=== PATIENT | female | born 1970 | race African-American/Black ===

== ENCOUNTER 2016-09-04 11:07 | Emergency (ER) | payer MEDICAID ==
[2016-09-04] MEDS ORDERED: LIDOCAINE 1% INJ-PF (10 MG/ML) 30 ML SDV INJ ONE (11:26)
[2016-09-04] MEDS ORDERED: DIPH/PERTUSS(ACELL)/TETANUS VAC/PF 0.5 ML SYR (>=10YO) IM ONE (11:27)
--- NOTE | 2016-09-04 11:27 | ER Document Report ---
ED Medical Screen (RME) - General Mode of Arrival: Ambulatory Information source: Patient TRAVEL OUTSIDE OF THE [place] IN LAST 30 DAYS: No - HPI Patient complains to provider of: Laceration to the left 3rd digit Onset: Just prior to arrival - 1045 Associated Symptoms: Other - see notes above - General Chief Complaint: Laceration Stated Complaint: LACERATION TO LEFT MIDDLE FINGER Notes: 46 year old female with history of hypertension and diabetes presents to the ED complaining of a laceration to the left 3rd digit that occurred just prior to arrival secondary to a glass breaking while doing dishes. Patient states that she has limited sensation to the tip of the left third digit. Patient denies being on blood thinners. (ROMÁN PARRA) - Related Data Allergies/Adverse Reactions: Iodinated Contrast Media - Oral and Allergy (Verified 09/04/16 11:11) Penicillins Allergy (Verified 09/04/16 11:11) tramadol Allergy (Verified 09/04/16 11:11) Past Medical History - General Information source: Patient - Past Medical History Cardiac Medical History: Reports: Hx Hypercholesterolemia, Hx Hypertension Endocrine Medical History: Reports: Hx Diabetes Mellitus Type 2 Renal/ Medical History: Denies: Hx Peritoneal Dialysis Psychiatric Medical History: Reports: Hx Depression Past Surgical History: Denies: Hx Pacemaker - Immunizations Hx Diphtheria, Pertussis, Tetanus Vaccination: Yes Review of Systems - Review of Systems Constitutional: No symptoms reported EENT: No symptoms reported Cardiovascular: No symptoms reported Respiratory: No symptoms reported Gastrointestinal: No symptoms reported Genitourinary: No symptoms reported Female Genitourinary: No symptoms reported Musculoskeletal: See HPI, Other - laceration to the left third digit Skin: No symptoms reported Hematologic/Lymphatic: No symptoms reported Neurological/Psychological: See HPI, Sensory change - tip of the left third digit -: Yes All other systems reviewed and negative Physical Exam - General General appearance: Alert In distress: None - Respiratory Respiratory status: No respiratory distress - Extremities General upper extremity: No: Normal inspection - see hand exam below Hand: Laceration - Left middle third digit. Bleeding is controlled.. No: Normal Course - Re-evaluation Re-evalutation: 09/04/16 13:24 I personally performed the services described in the documentation, reviewed and edited the documentation which was dictated to the scribe in my presence, and it accurately records my words and actions. (MANNY DAWSON) - Vital Signs Vital signs: Temp Pulse Resp BP Pulse Ox 98.5 F 91 16 138/81 H 98 09/04/16 12:55 09/04/16 12:55 09/04/16 12:55 09/04/16 12:55 09/04/16 12:55 Doctor's Discharge - Discharge Clinical Impression: Laceration of right middle finger w/o foreign body w/o damage to nail Condition: Stable Disposition: HOME, SELF-CARE Instructions: Laceration Care ([facility]) Additional Instructions: Keep wound clean and dry. Clean wound twice a day with soap and water. Follow up in 10-12 days for suture removal. Follow-up sooner for increased pain, fever , redness, drainage, any further concerns. Your blood pressure was elevated during today's visit. Have this rechecked with your doctor. The medication you were prescribed today may cause drowsiness. Do not drive or operate heavy machinery while taking this medication. Prescriptions: Hydrocodone/Acetaminophen [[place] 5-325 mg Tablet] 1 tab PO Q4 PRN #12 tablet PRN Reason: Forms: Elevated Blood Pressure Referrals: JOSEPH ROA FNP [Primary Care Provider] - Follow up as needed Scribe Documentation - Scribe Written by Omid:: Omid Stanford, 09/04/2016 1137 acting as scribe for :: Elaine
--- NOTE | 2016-09-04 12:30 | ER Document Report ---
ED Wound - General Mode of Arrival: Ambulatory Information source: Patient TRAVEL OUTSIDE OF THE [place] IN LAST 30 DAYS: No - HPI Patient complains to provider of: Laceration Occurred: Just prior to arrival Onset/Duration: Sudden Quality of pain: Sharp Severity: Moderate Context: Injury Skin Color: Normal Capillary refill: < 3 seconds Sensations intact: Yes <HANS FUENTES - Last Filed: 09/04/16 12:24> <MANNY DAWSON - Last Filed: 09/04/16 13:24> - General Chief Complaint: Laceration Stated Complaint: LACERATION TO LEFT MIDDLE FINGER - HPI Notes: Patient arrives with complaints of laceration to the right middle finger just below the DIP. Patient states that she was washing dishes and there was a broken glass in the oven operator and she was cut by the glass. She is on any blood thinners. Bleeding is controlled with pressure. She denies any other injuries. Tetanus is being updated today. She denies any numbness, tingling, weakness. No nausea vomiting diarrhea. She denies any other complaints at this moment. She has no other complaints of injury. Pain is worse when she moves her finger better with rest. (HANS FUENTES) - Related Data Allergies/Adverse Reactions: Iodinated Contrast Media - Oral and Allergy (Verified 09/04/16 11:11) Penicillins Allergy (Verified 09/04/16 11:11) tramadol Allergy (Verified 09/04/16 11:11) Past Medical History - General Information source: Patient - Social History Smoking Status: Unknown if Ever Smoked Family History: CAD, DM, Hypertension Patient has suicidal ideation: No Patient has homicidal ideation: No - Past Medical History Cardiac Medical History: Reports: Hx Hypercholesterolemia, Hx Hypertension Endocrine Medical History: Reports: Hx Diabetes Mellitus Type 2 Renal/ Medical History: Denies: Hx Peritoneal Dialysis Psychiatric Medical History: Reports: Hx Depression Past Surgical History: Denies: Hx Pacemaker - Immunizations Hx Diphtheria, Pertussis, Tetanus Vaccination: Yes <HANS FUENTES - Last Filed: 09/04/16 12:24> Review of Systems - Review of Systems -: Yes All other systems reviewed and negative <HANS FUENTES - Last Filed: 09/04/16 12:24> Physical Exam - General General appearance: Appears well, Alert - HEENT Head: Normocephalic Eyes: Normal Ears: Normal Mouth/Lips: Normal Mucous membranes: Normal - Respiratory Respiratory status: No respiratory distress Breath sounds: Normal - Cardiovascular Rhythm: Regular Heart sounds: Normal auscultation Murmur: No Normal capillary refill: Yes - Neurological Neuro grossly intact: Yes Cognition: Normal Orientation: AAOx4 Kvng Coma Scale Eye Opening: Spontaneous Kvng Coma Scale Verbal: Oriented Kvng Coma Scale Motor: Obeys Commands [place] Coma Scale Total: 15 Speech: Normal Motor strength normal: LUE, RUE, LLE, RLE Sensory: Normal - Psychological Associated symptoms: Normal affect, Normal mood - Skin Skin Temperature: Warm Skin Moisture: Dry Skin Color: Normal <HANS FUENTES - Last Filed: 09/04/16 12:24> <MANNY DAWSON - Last Filed: 09/04/16 13:24> - Vital signs Vitals: Temp Pulse Resp BP Pulse Ox 98.8 F 97 20 141/103 H 97 09/04/16 11:15 09/04/16 11:15 09/04/16 11:15 09/04/16 11:15 09/04/16 11:15 - Extremities Notes: Patient is noted to have a 3 severe laceration to the right middle finger middle phalanx. Patient is noted to have venous oozing, with no arterial injury identified. There is no evidence of foreign body. There is no evidence of flexor tendon laceration. Patient has full flexion and extension of the entire finger including the distal phalanx. Bleeding is controlled with pressure. She has normal cap refill and sensation distally. Remainder of her muscles, exam is normal. She is normal radial pulses well. (HANS FUENTES) - Skin Notes: 3cm laceration to the right middle finger (HANS FUENTES) Course - Diagnostic Test Radiology reviewed: Image reviewed <HANS FUENTES - Last Filed: 09/04/16 12:24> <MANNY DAWSON - Last Filed: 09/04/16 13:24> - Re-evaluation Re-evalutation: 09/04/16 12:28 Patient is nontoxic. Stable vitals. The patient lacerated her right middle finger on a piece of broken glass in dish water. Patient had 3 similar laceration to the middle phalanx of the right middle finger. Bleeding is controlled with pressure. X-ray shows no obvious foreign body or fracture. Exam shows no foreign body or tendon laceration. The laceration was closed with 8 sutures. The patient tolerated procedure well be discharged home with a prescription for pain medication. Keep wound clean and dry. Follow-up in 10- 12 days for suture removal. Follow-up sooner for increased pain, fever, redness , drainage, fever, any further concerns. The patient is noted to have elevated blood pressure during today's emergency department visit. The patient was informed of this finding. The patient was instructed that this may be related to pre-hypertension and requires further evaluation with a primary care provider. The patient has no hypertensive symptoms at this time. The patient's emergency department workup and current diagnosis were explained to the patient and or family. Follow-up instructions were provided. Medications if prescribed were discussed. Instructions for when to return to the emergency department including specific worrisome symptoms were discussed with the patient and/or family. (HANS FUENTES) - Vital Signs Vital signs: Temp Pulse Resp BP Pulse Ox 98.5 F 91 16 138/81 H 98 09/04/16 12:55 09/04/16 12:55 09/04/16 12:55 09/04/16 12:55 09/04/16 12:55 - Diagnostic Test Radiology results interpreted by me: 09/04/16 12:30 No fracture, no foreign body (HANS FUENTES) Procedures - Laceration/Wound Repair right third finger Wound length (cm): 3 Wound's Depth, Shape: Superficial. No: Nail-avulsed Laceration pre-procedure: Sterile PPE donned, Chloraprep applied, Sterile drapes applied Anesthetic type: 1% Lidocaine Volume Anesthetic (mLs): 2 Wound explored: Clean, No foreign body removed Wound Repaired With: Sutures Suture Size/Type: 5:0, Vicryl Number of Sutures: 8 Layer Closure?: No Post-procedure wound care: Sterile dressing applied Post-procedure NV exam normal: Yes Complications: No <HANS FUENTES - Last Filed: 09/04/16 12:24> Discharge <HANS FUENTES - Last Filed: 09/04/16 12:24> <MANNY DAWSON - Last Filed: 09/04/16 13:24> - Discharge Clinical Impression: Laceration of right middle finger w/o foreign body w/o damage to nail Qualifiers: Encounter type: initial encounter Qualified Code(s): S61.212A - Laceration without foreign body of right middle finger without damage to nail, initial encounter Condition: Stable Disposition: HOME, SELF-CARE Instructions: Laceration Care ([facility]) Additional Instructions: Keep wound clean and dry. Clean wound twice a day with soap and water. Follow up in 10-12 days for suture removal. Follow-up sooner for increased pain, fever , redness, drainage, any further concerns. Your blood pressure was elevated during today's visit. Have this rechecked with your doctor. The medication you were prescribed today may cause drowsiness. Do not drive or operate heavy machinery while taking this medication. Prescriptions: Hydrocodone/Acetaminophen [[place] 5-325 mg Tablet] 1 tab PO Q4 PRN #12 tablet PRN Reason: Forms: Elevated Blood Pressure Referrals: JOSEPH ROA FNP [Primary Care Provider] - Follow up as needed Cosign for MLP Exam - Cosign -: I personally evaluated and examined the patient in conjunction with the MLP and agree with the assessment, treatment plan and disposition. Cosign for MLP: Elizabeth <MANNY DAWSON - Last Filed: 09/04/16 13:24>
[2016-09-04] MEDS ORDERED: HYDROCODONE/ACETAMINOPHEN 5-325 MG TABLET ONE (12:51)
[2016-09-04 13:01] VITALS: BP 138/81
== END 2016-09-04 13:00 | disposition home or self-care (01) ==
LOC: ER 11:07
PROC: 0HQFXZZ Repair Right Hand Skin, External Approach (ICD-10-PCS; principal; 2016-09-04)
DX: S61.212A Laceration without foreign body of right middle finger without damage to nail, initial encounter (principal); W25.XXXA Contact with sharp glass, initial encounter
CPT/HCPCS: 99283; 90471; 73130; 90715; 12002; J3490

== ENCOUNTER 2016-09-27 06:36 | Emergency (ER) | payer SELFPAY ==
[2016-09-27] MEDS ORDERED: LISINOPRIL 10 MG TABLET PO ONE (07:27)
[2016-09-27] MEDS ORDERED: HYDROCHLOROTHIAZIDE 12.5 MG CAPSULE PO ONE (07:27)
[2016-09-27] MEDS ORDERED: ONDANSETRON 4 MG TAB.RAPDIS PO ONE (07:27)
--- NOTE | 2016-09-27 07:29 | ER Document Report ---
ED GI/ - General Chief Complaint: Vaginal Bleeding Stated Complaint: VAGINAL BLEEDING Mode of Arrival: Ambulatory Information source: Patient Notes: Patient presents complaining of pelvic pain and vaginal bleeding that started yesterday. Patient states that her last menstrual cycle 09/15/2016. Patient states she's been having irregular menstrual cycles for several months now. Patient reports nausea but denies any vomiting. Patient denies any urinary symptoms. Patient states that she ran out of her blood pressure medications yesterday. TRAVEL OUTSIDE OF THE [place] IN LAST 30 DAYS: No - HPI Patient complains to provider of: Pelvic pain, Vaginal bleeding. No: Vaginal discharge Onset: Yesterday Timing/Duration: Persistent Quality of pain: Cramping Pain Level: 4 Location: Pelvis Vaginal bleeding (Compared to normal period): Heavier, Bright red Associated symptoms: Nausea. denies: Chest pain, Dysuria, Fever, Lightheaded, Loss of appetite, Urinary hesitancy, Urinary frequency, Urinary retention, Urinary urgency, Vaginal discharge, Vomiting Exacerbated by: Denies Relieved by: Denies Similar symptoms previously: Yes Recently seen / treated by doctor: No - Related Data Allergies/Adverse Reactions: Iodinated Contrast Media - Oral and Allergy (Verified 09/04/16 11:11) Penicillins Allergy (Verified 09/04/16 11:11) tramadol Allergy (Verified 09/04/16 11:11) Past Medical History - General Information source: Patient Last Menstrual Period: 09/15/2016 - Social History Smoking Status: Never Smoker Chew tobacco use (# tins/day): No Frequency of alcohol use: None Drug Abuse: None Occupation: none Lives with: Family Family History: CAD, DM, Hypertension Patient has suicidal ideation: No Patient has homicidal ideation: No - Past Medical History Cardiac Medical History: Reports: Hx Hypercholesterolemia, Hx Hypertension Endocrine Medical History: Reports: Hx Diabetes Mellitus Type 2 Renal/ Medical History: Denies: Hx Peritoneal Dialysis Musculoskeltal Medical History: Reports Other - Chronic back pain Psychiatric Medical History: Reports: Hx Depression Surgical Hx: Negative Past Surgical History: Denies: Hx Pacemaker - Immunizations Hx Diphtheria, Pertussis, Tetanus Vaccination: Yes Review of Systems - Review of Systems Constitutional: No symptoms reported. denies: Fever, Recent illness EENT: No symptoms reported Cardiovascular: No symptoms reported. denies: Lightheaded Respiratory: No symptoms reported. denies: Cough, Short of breath Gastrointestinal: Nausea. denies: Vomiting Genitourinary: No symptoms reported. denies: Dysuria, Flank pain Female Genitourinary: Heavy/abnormal periods, Irregular period, Vaginal bleeding. denies: Musculoskeletal: No symptoms reported. denies: Back pain Skin: No symptoms reported Hematologic/Lymphatic: No symptoms reported Neurological/Psychological: No symptoms reported Physical Exam - Vital signs Vitals: Temp Pulse Resp BP Pulse Ox 98.0 F 88 16 160/104 H 98 09/27/16 06:41 09/27/16 06:41 09/27/16 06:41 09/27/16 06:41 09/27/16 06:41 - General General appearance: Appears well, Alert In distress: None - HEENT Head: Normocephalic, Atraumatic Eyes: Normal Nasal: Normal Mouth/Lips: Normal Pharynx: Normal Neck: Normal, Supple. No: Lymphadenopathy - Respiratory Respiratory status: No respiratory distress Chest status: Nontender Breath sounds: Normal. No: Rales, Rhonchi, Stridor, Wheezing Chest palpation: Normal - Cardiovascular Rhythm: Regular Heart sounds: S1 appreciated, S2 appreciated Murmur: No - Abdominal Inspection: Normal Distension: No distension Bowel sounds: Normal Tenderness: Tender - Lower pelvic Organomegaly: No organomegaly - Genitourinary External exam: Normal Speculum exam: Cervix closed Vaginal bleeding: Mild Bimanuel exam: Normal. No: Cervical motion tender, Adnexal mass, Adnexal tenderness - Back Back: Normal, Nontender. No: CVA tenderness - Extremities General upper extremity: Normal inspection, Normal ROM General lower extremity: Normal inspection, Normal ROM - Neurological Neuro grossly intact: Yes Cognition: Normal [place] Coma Scale Eye Opening: Spontaneous Kvng Coma Scale Verbal: Oriented Kvng Coma Scale Motor: Obeys Commands Kvng Coma Scale Total: 15 - Psychological Associated symptoms: Normal affect, Normal mood - Skin Skin Temperature: Warm Skin Moisture: Dry Skin Color: Normal Course - Re-evaluation Re-evalutation: 09/27/16 09:59 Patient states that she has had penicillin without difficulty after her initial allergy. 09/27/16 Patient encouraged to follow-up with the [facility] [employer] provider for further evaluation of irregular menstrual cycles and heavy periods. Patient also advised to follow- up with her primary doctor to get her blood pressure medications refilled. Discussed worsening signs or symptoms that patient should return immediately for. Patient advised that she should have her partner seek treatment for trichomonas as well - Vital Signs Vital signs: Temp Pulse Resp BP Pulse Ox 98.0 F 20 L 20 149/82 H 97 09/27/16 06:41 09/27/16 11:30 09/27/16 11:30 09/27/16 11:30 09/27/16 11:30 - Laboratory Result Diagrams: 09/27/16 07:50 09/27/16 07:50 Laboratory results interpreted by me: 09/27/16 09/27/16 07:50 07:50 Hgb 10.0 L Hct 30.7 L MCV 79 L MCH 25.9 L RDW 15.7 H Glucose 118 H Labs- Entire Visit 09/27/16 09/27/16 09/27/16 07:50 07:50 07:50 WBC 4.3 RBC 3.87 Hgb 10.0 L Hct 30.7 L MCV 79 L MCH 25.9 L MCHC 32.7 RDW 15.7 H Plt Count 315 Seg Neutrophils % 54.9 Lymphocytes % 33.2 Monocytes % 8.1 Eosinophils % 2.5 Basophils % 1.3 Absolute Neutrophils 2.4 Absolute Lymphocytes 1.4 Absolute Monocytes 0.3 Absolute Eosinophils 0.1 Absolute Basophils 0.1 Sodium 142.4 Potassium 3.9 Chloride 107 Carbon Dioxide 24 Anion Gap 11 BUN 14 Creatinine 0.86 Est GFR ( Amer) > 60 Est GFR (Non-Af Amer) > 60 Glucose 118 H Calcium 9.1 Total Bilirubin 0.4 Direct Bilirubin 0.3 Indirect Bilirubin Not Reportable Neonat Total Bilirubin Not Reportable AST 21 ALT 25 Alkaline Phosphatase 118 Total Protein 7.1 Albumin 4.0 Serum HCG, Qual NEGATIVE Trichomonas (Wet Prep) Vaginal WBC Vaginal RBC Vaginal Yeast 09/27/16 08:45 WBC RBC Hgb Hct MCV MCH MCHC RDW Plt Count Seg Neutrophils % Lymphocytes % Monocytes % Eosinophils % Basophils % Absolute Neutrophils Absolute Lymphocytes Absolute Monocytes Absolute Eosinophils Absolute Basophils Sodium Potassium Chloride Carbon Dioxide Anion Gap BUN Creatinine Est GFR ( Amer) Est GFR (Non-Af Amer) Glucose Calcium Total Bilirubin Direct Bilirubin Indirect Bilirubin Neonat Total Bilirubin AST ALT Alkaline Phosphatase Total Protein Albumin Serum HCG, Qual Trichomonas (Wet Prep) TRICHOMONAS SEEN Vaginal WBC NO WBCS SEEN Vaginal RBC 4+ RBCS SEEN Vaginal Yeast NO YEAST SEEN 09/27/16 13:06 09/27/16 13:07 Discharge - Discharge Clinical Impression: Hx of essential hypertension, Vagina bleeding, Trichomoniasis Condition: Stable Disposition: HOME, SELF-CARE Instructions: High Blood Pressure ([facility]), Vaginal Bleeding ([facility]), Trichomonas Infection ([facility]), Metronidazole ([facility]) Additional Instructions: Return immediately for any new or worsening symptoms Followup with your primary care provider, call tomorrow to make a followup appointment, your primary doctor can refill your blood pressure medications Follow up with a ring making machine operator for further evaluation of heavy irregular menstrual cycles Have your partner seek treatment for trichomonas infection Prescriptions: Amlodipine Besylate 5 mg PO DAILY #15 tab Lisinopril/Hydrochlorothiazide [Lisinopril-Hctz 20-12.5 mg Tab] 1 each PO DAILY #15 tablet Forms: Elevated Blood Pressure Referrals: [facility] [Provider Group] - Follow up in 3-5 days ANGELITO ROA III, MD [Primary Care Provider] - Follow up tomorrow
[2016-09-27 08:00] LABS: ABSOLUTE BASOPHILS # (AUTO) 0.1 10^3/uL (0.0-0.2); ABSOLUTE EOSINOPHILS # (AUTO) 0.1 10^3/uL (0.0-0.6); ABSOLUTE LYMPHOCYTES (AUTO) 1.4 10^3/uL (0.5-4.7); ABSOLUTE MONOCYTES (AUTO) 0.3 10^3/uL (0.1-1.4); ABSOLUTE NEUT (AUTO) 2.4 10^3/uL (1.7-8.2); BASOPHILS % (AUTO) 1.3 % (0-2); EOSINOPHILS % (AUTO) 2.5 % (0-6); HEMATOCRIT 30.7 % (36.0-47.0); HGB HCT DIFFERENCE -0.7; LYMPHOCYTES % (AUTO) 33.2 % (13-45); MEAN CORPUSCULAR HEMOGLOBIN 25.9 pg (27.0-33.4); MEAN CORPUSCULAR HGB CONC 32.7 g/dL (32.0-36.0); MEAN CORPUSCULAR VOLUME 79 fl (80-97); MONOCYTES % (AUTO) 8.1 % (3-13); RED BLOOD COUNT 3.87 10^6/uL (3.72-5.28); RED CELL DISTRIBUTION WIDTH 15.7 % (11.5-14.0); SEGMENTED NEUTROPHILS % (AUTO) 54.9 % (42-78); WHITE BLOOD COUNT 4.3 10^3/uL (4.0-10.5)
[2016-09-27 08:32] LABS: ALANINE AMINOTRANSFERASE 25 U/L (9-52); ALKALINE PHOSPHATASE 118 U/L (38-126); ANION GAP 11 (5-19); ASPARTATE AMINO TRANSFERASE 21 U/L (14-36); BILIRUBIN,DIRECT 0.3 mg/dL (0.0-0.4); BILIRUBIN,TOTAL 0.4 mg/dL (0.2-1.3); BLOOD UREA NITROGEN 14 mg/dL (7-20); CALCIUM 9.1 mg/dL (8.4-10.2); CARBON DIOXIDE 24 mmol/L (22-30); CHLORIDE 107 mmol/L (98-107); CREATININE RESULT 0.86 mg/dL (0.52-1.25); GLUCOSE 118 mg/dL (75-110); POTASSIUM 3.9 mmol/L (3.6-5.0); SODIUM 142.4 mmol/L (137-145); TOTAL PROTEIN 7.1 g/dL (6.3-8.2)
[2016-09-27] MEDS ORDERED: METRONIDAZOLE 500 MG TABLET PO ONE (09:29)
[2016-09-27] MEDS ORDERED: CEFTRIAXONE INJ 250 MG VIAL IM ONE (09:58)
[2016-09-27] MEDS ORDERED: LIDOCAINE 1% INJ-PF (10 MG/ML) 30 ML SDV INJ ONE (09:58)
[2016-09-27] MEDS ORDERED: AZITHROMYCIN 250 MG TABLET PO ONE (09:58)
[2016-09-27 10:27] LABS: CHLAM PCR NOT DETECTED (NOT DETECT)
[2016-09-27 11:31] VITALS: BP 149/82
== END 2016-09-27 11:31 | disposition home or self-care (01) ==
LOC: ER 06:36
DX: A59.9 Trichomoniasis, unspecified (principal); N93.9 Abnormal uterine and vaginal bleeding, unspecified; I10 Essential (primary) hypertension
CPT/HCPCS: 99284; 96372; 36415; 87210; 84703; 85025; 80053; 87491; 87591; S0119; J3490; J0696

== ENCOUNTER 2016-12-31 11:05 | Emergency (ER) | payer SELFPAY ==
[2016-12-31] MEDS ORDERED: NORMAL SALINE 1000 ML 1,000 ML IV PRN (11:19)
[2016-12-31] MEDS ORDERED: ONDANSETRON HCL INJ/PF 4 MG/2 ML SDV IV ONE (11:19)
--- NOTE | 2016-12-31 11:20 | ER Document Report ---
ED Medical Screen (RME) - General Chief Complaint: Blood Pressure Problem Stated Complaint: BLOOD PRESSURE PROBLEMS Time Seen by Provider: 12/31/16 11:18 Notes: Patient states for approximately 3-4 days she has had headaches nausea and vomiting. She states she has been out of her high blood pressure medication for over a week. She states she does not have a refill has been unable to see her doctor. TRAVEL OUTSIDE OF THE [place] IN LAST 30 DAYS: No - Related Data Allergies/Adverse Reactions: Iodinated Contrast- Oral and IV Dye Allergy (Verified 12/31/16 11:09) Penicillins Allergy (Verified 12/31/16 11:09) tramadol Allergy (Verified 12/31/16 11:09) Past Medical History - Social History Chew tobacco use (# tins/day): No Frequency of alcohol use: None Drug Abuse: None - Past Medical History Cardiac Medical History: Reports: Hx Hypercholesterolemia, Hx Hypertension Endocrine Medical History: Reports: Hx Diabetes Mellitus Type 2 Renal/ Medical History: Denies: Hx Peritoneal Dialysis Psychiatric Medical History: Reports: Hx Depression Surgical Hx: Negative Past Surgical History: Denies: Hx Pacemaker - Immunizations Hx Diphtheria, Pertussis, Tetanus Vaccination: Yes Physical Exam - Vital signs Vitals: Temp Pulse Resp BP Pulse Ox 98.4 F 71 14 209/103 H 98 12/31/16 11:09 12/31/16 11:09 12/31/16 11:09 12/31/16 11:09 12/31/16 11:09 Course - Vital Signs Vital signs: Temp Pulse Resp BP Pulse Ox 98.4 F 71 14 209/103 H 98 12/31/16 11:09 12/31/16 11:09 12/31/16 11:09 12/31/16 11:09 12/31/16 11:09
[2016-12-31 12:03] LABS: ABSOLUTE BASOPHILS # (AUTO) 0.1 10^3/uL (0.0-0.2); ABSOLUTE EOSINOPHILS # (AUTO) 0.1 10^3/uL (0.0-0.6); ABSOLUTE LYMPHOCYTES (AUTO) 1.7 10^3/uL (0.5-4.7); ABSOLUTE MONOCYTES (AUTO) 0.4 10^3/uL (0.1-1.4); ABSOLUTE NEUT (AUTO) 1.8 10^3/uL (1.7-8.2); BASOPHILS % (AUTO) 1.4 % (0-2); EOSINOPHILS % (AUTO) 1.9 % (0-6); HEMOGLOBIN 10.1 g/dL (12.0-15.5); HGB HCT DIFFERENCE -0.7; LYMPHOCYTES % (AUTO) 42.9 % (13-45); MEAN CORPUSCULAR HEMOGLOBIN 25.1 pg (27.0-33.4); MEAN CORPUSCULAR HGB CONC 32.8 g/dL (32.0-36.0); MEAN CORPUSCULAR VOLUME 77 fl (80-97); RED BLOOD COUNT 4.04 10^6/uL (3.72-5.28); RED CELL DISTRIBUTION WIDTH 16.3 % (11.5-14.0); SEGMENTED NEUTROPHILS % (AUTO) 43.8 % (42-78)
[2016-12-31 12:11] LABS: APPEARANCE,URINE SLIGHTLY-CLOUDY; BILIRUBIN,URINE NEGATIVE (NEGATIVE); GLUCOSE, URINE NEGATIVE (NEGATIVE); KETONES,URINE NEGATIVE (NEGATIVE); LEUKOCYTE ESTERASE,URINE NEGATIVE (NEGATIVE); NITRITE,URINE NEGATIVE (NEGATIVE); PROTEIN,URINE NEGATIVE (NEGATIVE); URINE SPECIFIC GRAVITY 1.016; UROBILINOGEN,URINE NEGATIVE mg/dL (<2.0)
[2016-12-31 12:20] LABS: ALANINE AMINOTRANSFERASE 25 U/L (9-52); ALKALINE PHOSPHATASE 106 U/L (38-126); ANION GAP 11 (5-19); ASPARTATE AMINO TRANSFERASE 20 U/L (14-36); BILIRUBIN,DIRECT 0.3 mg/dL (0.0-0.4); BILIRUBIN,TOTAL 0.4 mg/dL (0.2-1.3); BLOOD UREA NITROGEN 14 mg/dL (7-20); CALCIUM 9.3 mg/dL (8.4-10.2); CARBON DIOXIDE 25 mmol/L (22-30); CHLORIDE 103 mmol/L (98-107); CREATININE RESULT 0.83 mg/dL (0.52-1.25); GLUCOSE 140 mg/dL (75-110); LIPASE 69.5 U/L (23-300); POTASSIUM 3.7 mmol/L (3.6-5.0); SODIUM 138.7 mmol/L (137-145); TOTAL PROTEIN 7.2 g/dL (6.3-8.2)
[2016-12-31] MEDS ORDERED: AMLODIPINE BESYLATE 10 MG TABLET PO ONE (12:45)
[2016-12-31] MEDS ORDERED: DIAZEPAM 5 MG TABLET PO ONE (12:45)
[2016-12-31] MEDS ORDERED: HYDROCODONE/ACETAMINOPHEN 5-325 MG TABLET PO ONE (12:45)
[2016-12-31] MEDS ORDERED: METOCLOPRAMIDE HCL INJ/PF 10 MG/2 ML SDV IV ONE (12:58)
--- NOTE | 2016-12-31 13:22 | ER Document Report ---
ED General - General Chief Complaint: Blood Pressure Problem Stated Complaint: BLOOD PRESSURE PROBLEMS Time Seen by Provider: 12/31/16 11:18 Mode of Arrival: Ambulatory Information source: Patient Notes: 46-year-old female who is on benzos and narcotics and blood pressure medication presents with complaints of high blood pressure not feeling well. Patient notes she last took her benzos and narcotics and amlodipine 2 days ago. Patient states she has not been able to fill her prescription since. She denies any fevers or chills admits to nausea and vomiting and shakiness patient' s blood pressure was elevated upon arrival TRAVEL OUTSIDE OF THE [place] IN LAST 30 DAYS: No - HPI Onset: Just prior to arrival Onset/Duration: Sudden Quality of pain: Cramping Severity: Mild Pain Level: 1 Associated symptoms: Body/muscle aches, Headache, Nausea, Vomiting Exacerbated by: Denies Relieved by: Denies Similar symptoms previously: Yes Recently seen / treated by doctor: Yes - Related Data Allergies/Adverse Reactions: Iodinated Contrast- Oral and IV Dye Allergy (Verified 12/31/16 11:09) Penicillins Allergy (Verified 12/31/16 11:09) tramadol Allergy (Verified 12/31/16 11:09) Past Medical History - Social History Smoking Status: Never Smoker Cigarette use (# per day): No Chew tobacco use (# tins/day): No Smoking Education Provided: No Frequency of alcohol use: None Drug Abuse: None Family History: CAD, DM, Hypertension - Past Medical History Cardiac Medical History: Reports: Hx Hypercholesterolemia, Hx Hypertension Endocrine Medical History: Reports: Hx Diabetes Mellitus Type 2 Renal/ Medical History: Denies: Hx Peritoneal Dialysis Psychiatric Medical History: Reports: Hx Depression Surgical Hx: Negative Past Surgical History: Denies: Hx Pacemaker - Immunizations Hx Diphtheria, Pertussis, Tetanus Vaccination: Yes Review of Systems - Review of Systems Notes: REVIEW OF SYSTEMS: CONSTITUTIONAL : Denies fever, chills, or sweats. Denies recent illness. EENT: Denies eye, ear, throat, or mouth pain or symptoms. Denies nasal or sinus congestion or discharge. Denies throat, tongue, or mouth swelling or difficulty swallowing. CARDIOVASCULAR: Denies chest pain. Denies palpitations or racing or irregular heart beat. Denies ankle edema. RESPIRATORY: Denies cough, cold, or chest congestion. Denies shortness of breath, difficulty breathing, or wheezing. GASTROINTESTINAL: Admits to nausea vomiting GENITOURINARY: Denies difficulty urinating, painful urination, burning, frequency, blood in urine, or discharge. FEMALE GENITOURINARY: Denies vaginal bleeding, heavy or abnormal periods, irregular periods. Denies vaginal discharge or odor. MUSCULOSKELETAL: Admits to generalized body aches SKIN: Denies rash, lesions or sores. HEMATOLOGIC : Denies easy bruising or bleeding. LYMPHATIC: Denies swollen, enlarged glands. NEUROLOGICAL: Admits to headache PSYCHIATRIC: Denies anxiety or stress. Denies depression, suicidal ideation, or homicidal ideation. ALL OTHER SYSTEMS REVIEWED AND NEGATIVE. PHYSICAL EXAMINATION: GENERAL: Well-appearing, well-nourished and in no acute distress. Hypertensive on arrival HEAD: Atraumatic, normocephalic. EYES: Pupils equal round and reactive to light, extraocular movements intact, conjunctiva are normal. ENT: Nares patent, oropharynx clear without exudates. Moist mucous membranes. NECK: Normal range of motion, supple without lymphadenopathy LUNGS: Breath sounds clear to auscultation bilaterally and equal. No wheezes rales or rhonchi. HEART: Regular rate and rhythm without murmurs ABDOMEN: Soft, nontender, nondistended abdomen. No guarding, no rebound. No masses appreciated. Female : deferred Musculoskeletal: Normal range of motion, no pitting or edema. No cyanosis. NEUROLOGICAL: Cranial nerves grossly intact. Normal speech, normal gait. Normal sensory, motor exams PSYCH: Normal mood, normal affect. SKIN: Warm, Dry, normal turgor, no rashes or lesions noted. Dictation was performed using [employer] voice recognition software Physical Exam - Vital signs Vitals: Temp Pulse Resp BP Pulse Ox 98.4 F 71 14 209/103 H 98 12/31/16 11:09 12/31/16 11:09 12/31/16 11:09 12/31/16 11:09 12/31/16 11:09 Course - Re-evaluation Re-evalutation: 12/31/16 13:21 Patient admits that she has not taken her amlodipine her pain medication or her anxiety medication I will treat her for probable withdrawal symptoms and treat her 12/31/16 16:19 Patient was given pain control benzos and her blood pressure medication and states all her symptoms have since resolved. Patient is requesting narcotics in the emergency department for home, I have explained that she needs to follow with her primary care physician since this is the person who has prescribed her narcotics in the past. I will discharge her with a prescription for her blood pressure medication and is is important. I do not believe the patient will have any life-threatening withdrawal from her benzos since she has been off of it for 2 days and has not seized. Patient has been given very strict return precautions regarding this as well as follow-up After performing a Medical Screening Examination, I estimate there is LOW risk for ACUTE GLAUCOMA, TEMPORAL ARTERITIS, MENINGITIS, INCRANIAL HEMORRHAGE, or ISCHEMIC STROKE thus I consider the discharge disposition reasonable. I have reevaluated this patient multiple times and no significant life threatening changes are noted. The patient and I have discussed the diagnosis and risks, and we agree with discharging home with close follow-up with the understanding that symptoms and presentations can change. We also discussed returning to the Emergency Department immediately if new or worsening symptoms occur. We have discussed the symptoms which are most concerning (e.g., changing or worsening symptoms, new numbness or weakness, vomiting, fever) that necessitate immediate return. - Vital Signs Vital signs: Temp Pulse Resp BP Pulse Ox 98.4 F 71 14 144/71 H 97 12/31/16 11:09 12/31/16 11:09 12/31/16 14:01 12/31/16 14:01 12/31/16 14:01 - Laboratory Result Diagrams: 12/31/16 11:43 12/31/16 11:43 Laboratory results interpreted by me: 12/31/16 12/31/16 12/31/16 11:43 11:43 11:43 Hgb 10.1 L Hct 31.0 L MCV 77 L MCH 25.1 L RDW 16.3 H Glucose 140 H Urine Blood SMALL H - Diagnostic Test Radiology reviewed: Image reviewed, Reports reviewed Discharge - Discharge Clinical Impression: Hypertension Qualifiers: Hypertension type: essential hypertension Qualified Code(s): I10 - Essential ( primary) hypertension Headache Qualifiers: Headache type: unspecified Headache chronicity pattern: acute headache Intractability: not intractable Qualified Code(s): R51 - Headache Nausea & vomiting Qualifiers: Vomiting type: unspecified Vomiting Intractability: non-intractable Qualified Code(s): R11.2 - Nausea with vomiting, unspecified Condition: Stable Disposition: HOME, SELF-CARE Instructions: Antinausea Medication ([facility]), High Blood Pressure, Requiring Treatment ([facility]) Additional Instructions: Follow up with your physician tomorrow for further care or return to the ED IMMEDIATELY if symptoms worsen or new concerns occur. If you cannot afford to follow up with your primary care physician a list of low cost clinics have been provided at the end of your discharge papers as well. Prescriptions: Amlodipine Besylate 5 mg PO DAILY #14 tab
[2016-12-31 15:01] VITALS: BP 144/71
== END 2016-12-31 14:30 | disposition home or self-care (01) ==
LOC: ER 11:05
DX: I10 Essential (primary) hypertension (principal); R51 Headache; R11.2 Nausea with vomiting, unspecified; Z79.899 Other long term (current) drug therapy
CPT/HCPCS: 99283; 96361; 96374; 96375; 36415; 83690; 85025; 81025; 80053; 81001; J2765; J2405; J7030

== ENCOUNTER 2017-01-02 06:22 | Emergency (ER) | payer SELFPAY ==
[2017-01-02] MEDS ORDERED: DIPHENHYDRAMINE HCL 50 MG/ML VIAL IV ONE (06:42)
[2017-01-02] MEDS ORDERED: PROCHLORPERAZINE EDISYLATE INJ 10 MG/2 ML VIAL IV ONE (06:42)
--- NOTE | 2017-01-02 07:01 | ER Document Report ---
ED General - General Chief Complaint: Blood Pressure Problem Stated Complaint: VOMITING/CHEST PAIN Time Seen by Provider: 01/02/17 06:40 Mode of Arrival: Ambulatory Information source: Patient Notes: 46-year-old female history of hypertension who has been on benzos and narcotics presents with complaints of nausea vomiting dizziness has worsened over the past 24 hours. Patient notes she believes she ate a hamburger and has made her nauseated that she has vomited since with diarrhea. Patient denies any fevers or chills. Patient states that she has been having headaches since, states she has not taken her blood pressure medication as was prescribed to her by myself. Patient now notes after vomiting that she is having chest pain that started 3: 00 this morning. Patient also notes she felt dizzy and struck her head on the nightstand yesterday TRAVEL OUTSIDE OF THE [place] IN LAST 30 DAYS: No - HPI Onset: Other - 3 day duration Onset/Duration: Persistent Quality of pain: Sharp Severity: Mild Pain Level: 1 Associated symptoms: Diarrhea - Multiple episodes of diarrhea, Nausea, Vomiting Exacerbated by: Supine - Patient states being supine causes her dizziness and to fall but the patient is sitting up with no difficulty Relieved by: Denies Similar symptoms previously: Yes Recently seen / treated by doctor: Yes - Related Data Allergies/Adverse Reactions: Iodinated Contrast- Oral and IV Dye Allergy (Verified 12/31/16 11:09) Penicillins Allergy (Verified 12/31/16 11:09) tramadol Allergy (Verified 12/31/16 11:09) Past Medical History - Social History Smoking Status: Never Smoker Cigarette use (# per day): No Chew tobacco use (# tins/day): No Smoking Education Provided: No Family History: CAD, DM, Hypertension Patient has suicidal ideation: No Patient has homicidal ideation: No - Past Medical History Cardiac Medical History: Reports: Hx Hypercholesterolemia, Hx Hypertension Endocrine Medical History: Reports: Hx Diabetes Mellitus Type 2 Renal/ Medical History: Denies: Hx Peritoneal Dialysis Psychiatric Medical History: Reports: Hx Depression Past Surgical History: Denies: Hx Pacemaker - Immunizations Hx Diphtheria, Pertussis, Tetanus Vaccination: Yes Review of Systems - Review of Systems Notes: REVIEW OF SYSTEMS: CONSTITUTIONAL : Denies fever, chills, or sweats. Denies recent illness. EENT: Denies eye, ear, throat, or mouth pain or symptoms. Denies nasal or sinus congestion or discharge. Denies throat, tongue, or mouth swelling or difficulty swallowing. CARDIOVASCULAR: Admits to chest pain RESPIRATORY: Denies cough, cold, or chest congestion. Denies shortness of breath, difficulty breathing, or wheezing. GASTROINTESTINAL: Admits nausea vomiting diarrhea GENITOURINARY: Denies difficulty urinating, painful urination, burning, frequency, blood in urine, or discharge. FEMALE GENITOURINARY: Denies vaginal bleeding, heavy or abnormal periods, irregular periods. Denies vaginal discharge or odor. MUSCULOSKELETAL: Admits to body aches SKIN: Denies rash, lesions or sores. HEMATOLOGIC : Denies easy bruising or bleeding. LYMPHATIC: Denies swollen, enlarged glands. NEUROLOGICAL: Admits to dizziness PSYCHIATRIC: Denies anxiety or stress. Denies depression, suicidal ideation, or homicidal ideation. ALL OTHER SYSTEMS REVIEWED AND NEGATIVE. PHYSICAL EXAMINATION: GENERAL: Well-appearing, well-nourished and in no acute distress. Patient's blood pressure is noted to be elevated 174/122 HEAD: Atraumatic, normocephalic. EYES: Pupils equal round and reactive to light, extraocular movements intact, conjunctiva are normal. ENT: Nares patent, oropharynx clear without exudates. Moist mucous membranes. NECK: Normal range of motion, supple without lymphadenopathy LUNGS: Breath sounds clear to auscultation bilaterally and equal. No wheezes rales or rhonchi. HEART: Regular rate and rhythm without murmurs ABDOMEN: Soft, nontender, nondistended abdomen. No guarding, no rebound. No masses appreciated. Female : deferred Musculoskeletal: Normal range of motion, no pitting or edema. No cyanosis. NEUROLOGICAL: Cranial nerves grossly intact. Normal speech, normal gait. Normal sensory, motor exams PSYCH: Normal mood, normal affect. SKIN: Warm, Dry, normal turgor, no rashes or lesions noted. Dictation was performed using [employer] voice recognition software Physical Exam - Vital signs Vitals: Temp Pulse Resp BP Pulse Ox 98.4 F 76 22 H 174/122 H 98 01/02/17 06:26 01/02/17 06:26 01/02/17 06:26 01/02/17 06:26 01/02/17 06:26 Course - Re-evaluation Re-evalutation: 01/02/17 06:59 Physical examination notes no contusions lacerations or signs of head injury, blood pressure is noted to be elevated. Patient will be given Benadryl Compazine for her headache as well as for the nausea. CT of the head has been ordered emergently. EKG notes no acute abnormality. Lab work is pending at this time. Patient's chest pain appears to be secondary to her vomiting and she admits it is burning in her chest when she vomits and that it causes her esophagus to spasm 01/02/17 08:16 CT of head chest x-ray no no acute abnormality, patient's blood pressure 01/02/17 08:25 Patient's blood pressures improved significantly, it is 144/103 at this time patient's resting comfortably 01/02/17 08:55 Patient has been given her Norvasc and will be discharged at this time she notes nausea vomiting has ceased as well as her chest pain which appears to be gastritis nature. Very strict return precautions have been provided given that this is not a complete cardiac evaluation but patient states she wishes to be discharged After performing a Medical Screening Examination, I estimate there is LOW risk for INTRACRANIAL HEMORRHAGE, ISCHEMIC CVA, MALIGNANT DYSRHYTHMIA, ACUTE CORONARY SYNDROME, MENINGITIS, PULMONARY EMBOLISM, or SEPSIS thus I consider the discharge disposition reasonable. I have reevaluated this patient multiple times and no significant life threatening changes are noted. The patient and I have discussed the diagnosis and risks, and we agree with discharging home with close follow-up with the understanding that symptoms and presentations can change. We also discussed returning to the Emergency Department immediately if new or worsening symptoms occur. We have discussed the symptoms which are most concerning (e.g., changing or worsening pain, weakness, vomiting, fever) that necessitate immediate return. - Vital Signs Vital signs: Temp Pulse Resp BP Pulse Ox 98.4 F 76 13 182/102 H 100 01/02/17 06:26 01/02/17 06:26 01/02/17 07:02 01/02/17 07:02 01/02/17 07:02 - Laboratory Result Diagrams: 01/02/17 07:10 01/02/17 07:10 Laboratory results interpreted by me: 01/02/17 01/02/17 07:10 07:10 Hgb 11.2 L Hct 34.2 L MCV 77 L MCH 25.2 L RDW 16.4 H Glucose 111 H - Diagnostic Test Radiology reviewed: Image reviewed, Reports reviewed - EKG Interpretation by Me EKG shows normal: Sinus rhythm, [place], Intervals, QRS Complexes Discharge - Discharge Clinical Impression: Hypertension Qualifiers: Hypertension type: essential hypertension Qualified Code(s): I10 - Essential ( primary) hypertension Nausea & vomiting Qualifiers: Vomiting type: unspecified Vomiting Intractability: non-intractable Qualified Code(s): R11.2 - Nausea with vomiting, unspecified Headache Qualifiers: Headache type: unspecified Headache chronicity pattern: acute headache Intractability: not intractable Qualified Code(s): R51 - Headache Condition: Stable Disposition: HOME, SELF-CARE Instructions: Vomiting ([facility]) Additional Instructions: Follow up with your physician tomorrow for further care or return to the ED IMMEDIATELY if symptoms worsen or new concerns occur. If you cannot afford to follow up with your primary care physician a list of low cost clinics have been provided at the end of your discharge papers as well. Prescriptions: Promethazine HCl [Phenergan 25 mg Tablet] 25 - 50 mg PO ASDIR PRN #12 tablet PRN Reason:
[2017-01-02 07:20] LABS: ABSOLUTE BASOPHILS # (AUTO) 0.1 10^3/uL (0.0-0.2); ABSOLUTE EOSINOPHILS # (AUTO) 0.1 10^3/uL (0.0-0.6); ABSOLUTE LYMPHOCYTES (AUTO) 2.1 10^3/uL (0.5-4.7); ABSOLUTE MONOCYTES (AUTO) 0.5 10^3/uL (0.1-1.4); ABSOLUTE NEUT (AUTO) 3.3 10^3/uL (1.7-8.2); BASOPHILS % (AUTO) 1.2 % (0-2); EOSINOPHILS % (AUTO) 1.3 % (0-6); HEMATOCRIT 34.2 % (36.0-47.0); HEMOGLOBIN 11.2 g/dL (12.0-15.5); HGB HCT DIFFERENCE -0.6; LYMPHOCYTES % (AUTO) 34.2 % (13-45); MEAN CORPUSCULAR HEMOGLOBIN 25.2 pg (27.0-33.4); MEAN CORPUSCULAR HGB CONC 32.6 g/dL (32.0-36.0); MEAN CORPUSCULAR VOLUME 77 fl (80-97); MONOCYTES % (AUTO) 7.6 % (3-13); RED BLOOD COUNT 4.42 10^6/uL (3.72-5.28); RED CELL DISTRIBUTION WIDTH 16.4 % (11.5-14.0); SEGMENTED NEUTROPHILS % (AUTO) 55.7 % (42-78)
[2017-01-02 07:27] LABS: PROTHROMBIN TIME 12.9 SEC (11.4-15.4)
[2017-01-02 07:31] LABS: ALANINE AMINOTRANSFERASE 21 U/L (9-52); ALBUMIN 4.3 g/dL (3.5-5.0); ALKALINE PHOSPHATASE 122 U/L (38-126); ANION GAP 11 (5-19); ASPARTATE AMINO TRANSFERASE 20 U/L (14-36); BILIRUBIN,DIRECT 0.3 mg/dL (0.0-0.4); BILIRUBIN,TOTAL 0.5 mg/dL (0.2-1.3); BLOOD UREA NITROGEN 9 mg/dL (7-20); CALCIUM 9.4 mg/dL (8.4-10.2); CARBON DIOXIDE 24 mmol/L (22-30); CHLORIDE 102 mmol/L (98-107); CREATINE KINASE 94 U/L (30-135); CREATININE RESULT 0.81 mg/dL (0.52-1.25); GLUCOSE 111 mg/dL (75-110); POTASSIUM 3.9 mmol/L (3.6-5.0); SODIUM 137.4 mmol/L (137-145); TOTAL PROTEIN 7.6 g/dL (6.3-8.2)
--- NOTE | 2017-01-02 07:34 | RADIOLOGY REPORT (SQ) ---
EXAM DESCRIPTION: CT HEAD WITHOUT COMPLETED DATE/TIME: 01/02/2017 7:23 am REASON FOR STUDY: htn, head injury COMPARISON: 05/11/2014. MRI, 05/11/2014. TECHNIQUE: Axial images acquired through the brain without intravenous contrast. Images reviewed wi th bone, brain and subdural windows. Images stored on PACS. All CT scanners at this facility use dose modulation, iterative reconstruction, and/or weight based d osing when appropriate to reduce radiation dose to as low as reasonably achievable (ALARA). [facility]: Dose Right [facility]: CareDose [facility]: Dose Right [facility]: Teradose 4D [facility]: Smart Hiphunters RADIATION DOSE: Up-to-date CT equipment and radiation dose reduction techniques were employed. CTDIv ol: 49.0 mGy. DLP: 1273 mGy-cm. mGy. LIMITATIONS: None. FINDINGS: VENTRICLES: Normal size and contour. CEREBRUM: No masses. No hemorrhage. No midline shift. Normal vazquez/white matter differentiation. N o evidence for acute infarction. CEREBELLUM: No masses. No hemorrhage. No alteration of density. No evidence for acute infarction. EXTRAAXIAL SPACES: No fluid collections. No masses. ORBITS AND GLOBE: No intra- or extraconal masses. Normal contour of globe without masses. CALVARIUM: No fracture. PARANASAL SINUSES: No fluid or mucosal thickening. SOFT TISSUES: No mass or hematoma. OTHER: No other significant finding. IMPRESSION: NORMAL BRAIN CT WITHOUT CONTRAST. TECHNICAL DOCUMENTATION: JOB ID: [id number] Quality ID # [id number]: Final reports with documentation of one or more dose reduction techniques (e.g., Au tomated exposure control, adjustment of the mA and/or kV according to patient size, use of iterative reconstruction technique) 2010 [employer]- All Rights Reserved
--- NOTE | 2017-01-02 07:40 | RADIOLOGY REPORT (SQ) ---
EXAM DESCRIPTION: CHEST PA/LAT COMPLETED DATE/TIME: 01/02/2017 7:30 am REASON FOR STUDY: chest pain COMPARISON: 10/27/2014. EXAM PARAMETERS: NUMBER OF VIEWS: two views TECHNIQUE: Digital Frontal and Lateral radiographic views of the chest acquired. RADIATION DOSE: NA LIMITATIONS: none FINDINGS: LUNGS AND PLEURA: No opacities, masses or pneumothorax. No pleural effusion. MEDIASTINUM AND HILAR STRUCTURES: No masses or contour abnormalities. HEART AND VASCULAR STRUCTURES: Heart normal size. No evidence for failure. BONES: No acute findings. HARDWARE: None in the chest. OTHER: No other significant finding. IMPRESSION: NO SIGNIFICANT RADIOGRAPHIC FINDING IN THE CHEST. TECHNICAL DOCUMENTATION: JOB ID: [id number] [email or web address]- All Rights Reserved
[2017-01-02 07:43] LABS: CREATINE KINASE MB 0.32 ng/mL (<4.55)
[2017-01-02 07:50] LABS: TROPONIN I < 0.012 ng/mL
[2017-01-02] MEDS ORDERED: AMLODIPINE BESYLATE 5 MG TABLET PO ONE (08:25)
[2017-01-02 09:49] VITALS: BP 133/90
--- NOTE | 2017-01-02 13:32 | EKG REPORT ---
SEVERITY:- NORMAL ECG - SINUS RHYTHM : Confirmed by: Enrico Peña MD 02-Jan-2017 13:31:59
== END 2017-01-02 09:06 | disposition home or self-care (01) ==
LOC: ER 06:22
DX: I10 Essential (primary) hypertension (principal); Z91.14 Patient's other noncompliance with medication regimen; R51 Headache; R11.2 Nausea with vomiting, unspecified; R42 Dizziness and giddiness; R19.7 Diarrhea, unspecified; K22.4 Dyskinesia of esophagus; R07.9 Chest pain, unspecified; E11.9 Type 2 diabetes mellitus without complications; Z79.899 Other long term (current) drug therapy; Z79.891 Long term (current) use of opiate analgesic; Z91.041 Radiographic dye allergy status; Z88.0 Allergy status to penicillin; Z82.49 Family history of ischemic heart disease and other diseases of the circulatory system
CPT/HCPCS: 93005; 99284; 96374; 96375; 36415; 82553; 82550; 85025; 85610; 80053; 84484; 71020; 70450; 93010; J1200; J0780

== ENCOUNTER 2017-04-29 07:22 | Emergency (ER) | payer SELFPAY ==
[2017-04-29] MEDS ORDERED: LISINOPRIL 10 MG TABLET PO ONE (08:10)
[2017-04-29] MEDS ORDERED: HYDROCHLOROTHIAZIDE 12.5 MG CAPSULE PO ONE (08:10)
[2017-04-29] MEDS ORDERED: AMLODIPINE BESYLATE 5 MG TABLET PO ONE (08:10)
--- NOTE | 2017-04-29 08:11 | ER Document Report ---
ED General - General Chief Complaint: Headache Stated Complaint: HEADACHE BLOOD PRESSURE CONCERNS Time Seen by Provider: 04/29/17 07:47 Mode of Arrival: Ambulatory Information source: Patient Notes: Patient presents complaining of frontal headache pain for the past 2 days. Patient states that she recently ran out of her blood pressure medicine 3 days ago and she feels that her headache is a result of her elevated blood pressure. Patient additionally reports that she was decorating her [place] tree yesterday and fell off of a step stool landing on her bottom. Patient complains of right hip pain. Patient additionally complains of some vaginal pain. Patient states that she was treated for trichomonas several months ago and she reconciled temporarily with her spouse and states that he told her that he had been treated for this infection but she does not believe him. Patient is concerned that she may have trichomonas again. TRAVEL OUTSIDE OF THE [place] IN LAST 30 DAYS: No - HPI Onset: Other - 2 days Onset/Duration: Persistent Quality of pain: Pressure Pain Level: 5 Associated symptoms: Headache, Other - Right hip pain, vaginal pain. denies: Nonproductive cough, Productive cough, Fever, Nausea, Vomiting Exacerbated by: Other - Light and noise affect headache Relieved by: Denies Similar symptoms previously: Yes - STD symptoms Recently seen / treated by doctor: No - Related Data Allergies/Adverse Reactions: Iodinated Contrast- Oral and IV Dye Allergy (Verified 12/31/16 11:09) Penicillins Allergy (Verified 12/31/16 11:09) tramadol Allergy (Verified 12/31/16 11:09) Past Medical History - General Information source: Patient - Social History Smoking Status: Never Smoker Frequency of alcohol use: None Drug Abuse: None Occupation: None Lives with: Alone Family History: CAD, DM, Hypertension Patient has suicidal ideation: No Patient has homicidal ideation: No - Past Medical History Cardiac Medical History: Reports: Hx Hypercholesterolemia, Hx Hypertension Endocrine Medical History: Reports: Hx Diabetes Mellitus Type 2 Renal/ Medical History: Denies: Hx Peritoneal Dialysis Psychiatric Medical History: Reports: Hx Depression Surgical Hx: Negative Past Surgical History: Denies: Hx Pacemaker - Immunizations Hx Diphtheria, Pertussis, Tetanus Vaccination: Yes Review of Systems - Review of Systems Constitutional: No symptoms reported. denies: Fever, Recent illness EENT: No symptoms reported Cardiovascular: No symptoms reported. denies: Chest pain Respiratory: No symptoms reported. denies: Cough, Short of breath Gastrointestinal: No symptoms reported. denies: Abdominal pain, Diarrhea, Nausea, Vomiting Genitourinary: No symptoms reported. denies: Dysuria Female Genitourinary: Other - Vaginal discomfort Musculoskeletal: Joint pain - Right hip pain Skin: No symptoms reported Hematologic/Lymphatic: No symptoms reported Neurological/Psychological: Headaches. denies: Lost consciousness Physical Exam - Vital signs Vitals: Temp Pulse Resp BP Pulse Ox 98.2 F 77 16 189/106 H 98 04/29/17 07:29 04/29/17 07:29 04/29/17 07:29 04/29/17 07:29 04/29/17 07:29 - General General appearance: Appears well, Alert In distress: None - HEENT Head: Normocephalic, Atraumatic Eyes: Normal Conjunctiva: Normal Nasal: Normal Mouth/Lips: Normal Mucous membranes: Normal Pharynx: Normal Neck: Normal, Supple. No: Brudzinski, Lymphadenopathy, Meningismus - Respiratory Respiratory status: No respiratory distress Chest status: Nontender Breath sounds: Normal. No: Rales, Rhonchi, Stridor, Wheezing Chest palpation: Normal - Cardiovascular Rhythm: Regular Heart sounds: S1 appreciated, S2 appreciated Murmur: No - Abdominal Inspection: Normal Distension: No distension Bowel sounds: Normal Tenderness: Nontender Organomegaly: No organomegaly - Genitourinary External exam: Normal Speculum exam: Cervix closed. No: Vaginal discharge Vaginal bleeding: Mild Bimanuel exam: Normal. No: Cervical motion tender, Adnexal tenderness - Back Back: Tender - Right SI joint tenderness. No: Deformity/step-off, CVA tenderness, Vertebra tenderness - Extremities General upper extremity: Normal inspection, Normal strength General lower extremity: Normal inspection, Normal strength - Neurological Neuro grossly intact: Yes Cognition: Normal Orientation: AAOx4 Kvng Coma Scale Eye Opening: Spontaneous [place] Coma Scale Verbal: Oriented Kvng Coma Scale Motor: Obeys Commands Kvng Coma Scale Total: 15 Speech: Normal Cranial nerves: Normal. No: Tongue deviation Cerebellar coordination: Normal - Psychological Associated symptoms: Normal affect, Normal mood - Skin Skin Temperature: Warm Skin Moisture: Dry Skin Color: Normal Course - Re-evaluation Re-evalutation: 04/29/17 08:[address] Grey regarding patient presentation and complaints of headache due to elevated blood pressure. Patient has been seen here multiple times in the past with similar complaint when she ran out of her blood pressure medication. Patient states headache is typical of headache she has had in the past when she has run out of her blood pressure medication. Patient without any focal neurologic deficits. Dr. Grey does not advise any CT imaging at this time. 04/29/17 10:57 Patient's headache continues and the blood pressure has not improved despite medications. CT scan ordered. Consulted with Dr. Grey who agrees with this plan of care. Does not recommend any additional blood pressure medications at this time as patient has a history of elevated blood pressure in the past and does not want to lower her blood pressure too quickly. Dr Grey does recommend treating her headache symptoms 04/29/17 13:14 CT scan without any signs of acute stroke. Patient reports headache pain is somewhat improved. Blood pressure has improved as well 153/97. Discussed discharge plan of care. Patient verbalized understanding and agrees with plan of care. - Vital Signs Vital signs: Temp Pulse Resp BP Pulse Ox 98.2 F 74 19 156/98 H 98 04/29/17 07:32 04/29/17 13:36 04/29/17 13:36 04/29/17 13:36 04/29/17 13:36 - Laboratory Laboratory results interpreted by me: 04/29/17 08:50 Urine Protein 30 H Urine Blood LARGE H Ur Leukocyte Esterase TRACE H Labs- Entire Visit 04/29/17 04/29/17 04/29/17 08:50 08:50 08:50 Urine Color YELLOW Urine Appearance CLOUDY Urine pH 7.0 Ur Specific [place] 1.013 Urine Protein 30 H Urine Glucose (UA) NEGATIVE Urine Ketones NEGATIVE Urine Blood LARGE H Urine Nitrite NEGATIVE Urine Bilirubin NEGATIVE Urine Urobilinogen NEGATIVE Ur Leukocyte Esterase TRACE H Urine WBC (Auto) 6 Urine RBC (Auto) 6 Urine Bacteria (Auto) 1+ Squamous Epi Cells Auto 43 Urine Mucus (Auto) RARE Urine Ascorbic Acid NEGATIVE Urine HCG, Qual NEGATIVE Bacteria (Wet Prep) 3+ BACTERIA SEEN Trichomonas (Wet Prep) TRICHOMONAS SEEN Vaginal WBC NO WBCS SEEN Vaginal RBC RARE RBCS SEEN Vaginal Yeast NO YEAST SEEN Chlamydia DNA (PCR) NOT DETECTED N.gonorrhoeae DNA (PCR) NOT DETECTED - Diagnostic Test Radiology reviewed: Reports reviewed Discharge - Discharge Clinical Impression: Hx of essential hypertension, Trichomonas vaginitis Headache Qualifiers: Headache type: unspecified Headache chronicity pattern: unspecified pattern Intractability: not intractable Qualified Code(s): R51 - Headache Condition: Stable Disposition: HOME, SELF-CARE Instructions: Intravenous Compazine for Headaches ([facility]), Use of Diphenhydramine , Headache ([facility]), High Blood Pressure, Requiring Treatment ([facility]), Metronidazole ([facility]), Oral Narcotic Medication ([facility]), Sprain ([facility]), Trichomonas Infection ([facility]) Additional Instructions: Return immediately for any new or worsening symptoms Followup with your primary care provider, call tomorrow to make a followup appointment Take your blood pressure medication as prescribed Have your partner seek treatment for trichomonas infection Follow-up with orthopedic doctor for any continued hip pain Prescriptions: Amlodipine Besylate 5 mg PO DAILY #30 tab Hydrocodone/Acetaminophen [[place] 5-325 Tablet] 1 each PO Q4 PRN #15 tablet PRN Reason: Lisinopril/Hydrochlorothiazide [Zestoretic 10-12.5 mg Tablet] 1 each PO DAILY # 30 tablet Forms: Elevated Blood Pressure Referrals: RADHA VALENCIA NP [Primary Care Provider] - Follow up as needed [facility] [Provider Group] - Follow up as needed
[2017-04-29] MEDS ORDERED: HYDROCODONE/ACETAMINOPHEN 5-325 MG TABLET PO ONE (08:56)
[2017-04-29 09:16] LABS: APPEARANCE,URINE CLOUDY; BILIRUBIN,URINE NEGATIVE (NEGATIVE); GLUCOSE, URINE NEGATIVE (NEGATIVE); KETONES,URINE NEGATIVE (NEGATIVE); LEUKOCYTE ESTERASE,URINE TRACE (NEGATIVE); NITRITE,URINE NEGATIVE (NEGATIVE); PROTEIN,URINE 30 mg/dL (NEGATIVE); URINE SPECIFIC GRAVITY 1.013; UROBILINOGEN,URINE NEGATIVE mg/dL (<2.0)
--- NOTE | 2017-04-29 10:27 | RADIOLOGY REPORT (SQ) ---
EXAM DESCRIPTION: HIP RIGHT AP/LATERAL COMPLETED DATE/TIME: 04/29/2017 10:10 am REASON FOR STUDY: fall, r hip injury COMPARISON: None. NUMBER OF VIEWS: Two views, AP pelvis and frog lateral right hip. LIMITATIONS: None. FINDINGS: Normal bone density. No displaced fracture or bone lesion detected. Bilateral hip degene rative spurring. Hip joint spaces are otherwise maintained. OTHER: No other significant finding. IMPRESSION: No pelvic or hip fracture appreciated. TECHNICAL DOCUMENTATION: JOB ID: [id number]
[2017-04-29 10:54] LABS: CHLAM PCR NOT DETECTED (NOT DETECT)
[2017-04-29] MEDS ORDERED: DIPHENHYDRAMINE HCL 50 MG/ML VIAL IV ONE (10:56)
[2017-04-29] MEDS ORDERED: PROCHLORPERAZINE EDISYLATE INJ 10 MG/2 ML VIAL IV ONE (10:56)
--- NOTE | 2017-04-29 11:23 | RADIOLOGY REPORT (SQ) ---
EXAM DESCRIPTION: CT HEAD WITHOUT COMPLETED DATE/TIME: 04/29/2017 11:09 am REASON FOR STUDY: EGAN, HTN COMPARISON: 01/02/2017 TECHNIQUE: Axial images acquired through the brain without intravenous contrast. Images reviewed wi th bone, brain and subdural windows. Images stored on PACS. All CT scanners at this facility use dose modulation, iterative reconstruction, and/or weight based d osing when appropriate to reduce radiation dose to as low as reasonably achievable (ALARA). [facility]: Dose Right [facility]: CareDose [facility]: Dose Right [facility]: Teradose 4D [facility]: Smart [employer] RADIATION DOSE: CT Rad equipment meets quality standard of care and radiation dose reduction techniq ues were employed. CTDIvol: 64.6 mGy. DLP: 1163 mGy-cm. mGy. LIMITATIONS: None. FINDINGS: VENTRICLES: Normal size and contour. CEREBRUM: No masses. No hemorrhage. No midline shift. No evidence for acute infarction. Normal gra y/white matter differentiation. No areas of low density in the white matter. CEREBELLUM: No masses. No hemorrhage. No alteration of density. No evidence for acute infarction. EXTRAAXIAL SPACES: No fluid collections. No masses. ORBITS AND GLOBE: No intra- or extraconal masses. Normal contour of globe without masses. CALVARIUM: No fracture. PARANASAL SINUSES: No fluid or mucosal thickening. SOFT TISSUES: No mass or hematoma. OTHER: No other significant finding. IMPRESSION: NORMAL BRAIN CT WITHOUT CONTRAST. EVIDENCE OF ACUTE STROKE: NO. COMMENT: Quality ID # [id number]: Final reports with documentation of one or more dose reduction techniques (e.g., Automated exposure control, adjustment of the mA and/or kV according to patient size, use of iterative reconstruction technique) TECHNICAL DOCUMENTATION: JOB ID: [id number] [employer]- All Rights Reserved
[2017-04-29] MEDS ORDERED: METRONIDAZOLE 500 MG TABLET PO ONE (13:09)
[2017-04-29 13:37] VITALS: BP 156/98
== END 2017-04-29 14:00 | disposition home or self-care (01) ==
LOC: ER 07:22
DX: A59.01 Trichomonal vulvovaginitis (principal); R51 Headache; R03.0 Elevated blood-pressure reading, without diagnosis of hypertension; R10.2 Pelvic and perineal pain
CPT/HCPCS: 99284; 96374; 96375; 87210; 81025; 81001; 87491; 87591; 73502; 70450; J1200; J0780

== ENCOUNTER 2017-08-12 13:45 | Emergency (ER) | payer SELFPAY ==
--- NOTE | 2017-08-12 16:33 | ER Document Report ---
ED Blood Pressure Problem - General Chief Complaint: High Blood Pressure Stated Complaint: BLOOD PRESSURE CONCERNS Time Seen by Provider: 08/12/17 15:54 Mode of Arrival: Ambulatory Information source: Patient Notes: Patient comes in complaining of blood pressure that is elevated. She states she ran out of her blood pressure medicine this morning. She states she is unable to see her primary care physician. She also states that she feels she is under a lot of stress because she is taking care of her mom who just had quadruple bypass. Patient states that she is also had some right sided face and chest pain. Nothing makes this pain better or worse. It does radiate from the face down into the right shoulder. It intermittent. It is brief. It is an aching sensation. TRAVEL OUTSIDE OF THE [place] IN LAST 30 DAYS: No - Related Data Allergies/Adverse Reactions: Iodinated Contrast- Oral and IV Dye Allergy (Verified 08/12/17 13:49) Penicillins Allergy (Verified 08/12/17 13:49) tramadol Allergy (Verified 08/12/17 13:49) Past Medical History - General Information source: Patient - Social History Smoking Status: Never Smoker Chew tobacco use (# tins/day): No Frequency of alcohol use: None Drug Abuse: None Family History: CAD, DM, Hypertension Patient has suicidal ideation: No Patient has homicidal ideation: No - Past Medical History Cardiac Medical History: Reports: Hx Hypercholesterolemia, Hx Hypertension Endocrine Medical History: Reports: Hx Diabetes Mellitus Type 2 Renal/ Medical History: Denies: Hx Peritoneal Dialysis Psychiatric Medical History: Reports: Hx Depression Past Surgical History: Denies: Hx Pacemaker - Immunizations Hx Diphtheria, Pertussis, Tetanus Vaccination: Yes Review of Systems - Review of Systems Constitutional: denies: Chills, Fever Cardiovascular: Chest pain. denies: Palpitations Respiratory: denies: Cough, Short of breath -: Yes All other systems reviewed and negative Physical Exam - Vital signs Vitals: Temp Pulse Resp BP Pulse Ox 97.9 F 76 20 169/85 H 98 08/12/17 14:34 08/12/17 14:34 08/12/17 14:34 08/12/17 14:34 08/12/17 14:34 Interpretation: Hypertensive - General General appearance: Appears well, Alert - HEENT Head: Normocephalic, Atraumatic Eyes: Normal Pupils: PERRL - Respiratory Respiratory status: No respiratory distress Chest status: Nontender Breath sounds: Normal Chest palpation: Normal - Cardiovascular Rhythm: Regular Heart sounds: Normal auscultation Murmur: No - Abdominal Inspection: Normal Distension: No distension Bowel sounds: Normal Tenderness: Nontender Organomegaly: No organomegaly - Back Back: Normal, Nontender - Extremities General upper extremity: Normal inspection, Nontender, Normal color, Normal ROM , Normal temperature General lower extremity: Normal inspection, Nontender, Normal color, Normal ROM , Normal temperature, Normal weight bearing. No: Landry's sign - Neurological Neuro grossly intact: Yes Cognition: Normal Orientation: AAOx4 Kvng Coma Scale Eye Opening: Spontaneous Kvng Coma Scale Verbal: Oriented [place] Coma Scale Motor: Obeys Commands Kvng Coma Scale Total: 15 Speech: Normal Motor strength normal: LUE, RUE, LLE, RLE Sensory: Normal - Psychological Associated symptoms: Normal affect, Normal mood - Skin Skin Temperature: Warm Skin Moisture: Dry Skin Color: Normal Course - Vital Signs Vital signs: Temp Pulse Resp BP Pulse Ox 97.9 F 76 20 169/85 H 98 08/12/17 14:34 08/12/17 14:34 08/12/17 14:34 08/12/17 14:34 08/12/17 14:34 - EKG Interpretation by De EKG shows normal: Sinus rhythm Rate: Normal Rhythm: NSR [place]/QRS: No: Right axis deviation, Left axis deviation Discharge - Discharge Clinical Impression: Hypertension Qualifiers: Hypertension type: unspecified Qualified Code(s): I10 - Essential (primary) hypertension Condition: Stable Disposition: HOME, SELF-CARE Instructions: High Blood Pressure ([facility]) Additional Instructions: Call your primary care doctor as soon as possible to arrange for a recheck Prescriptions: Alprazolam [Xanax 0.5 mg Tablet] 0.5 mg PO TID PRN 10 Days #30 tab PRN Reason: Amlodipine Besylate [Norvasc 5 mg Tablet] 5 mg PO DAILY #30 tablet Lisinopril/Hydrochlorothiazide [Lisinopril-Hctz 20-12.5 mg Tab] 1 each PO DAILY 30 Days #30 tablet Forms: Return to Work
[2017-08-12 16:49] VITALS: BP 167/90
--- NOTE | 2017-08-12 18:53 | EKG REPORT ---
SEVERITY:- ABNORMAL ECG - SINUS RHYTHM PROBABLE LEFT VENTRICULAR HYPERTROPHY : Confirmed by: Enrico Peña MD 12-Aug-2017 18:53:11
== END 2017-08-12 16:50 | disposition home or self-care (01) ==
LOC: ER 13:45
DX: I10 Essential (primary) hypertension (principal); R51 Headache; R07.9 Chest pain, unspecified; E11.9 Type 2 diabetes mellitus without complications; Z91.041 Radiographic dye allergy status; Z88.0 Allergy status to penicillin; Z88.5 Allergy status to narcotic agent
CPT/HCPCS: 93005; 93010; 99283

== ENCOUNTER 2019-06-02 11:41 | Emergency (ER) | payer SELFPAY ==
--- NOTE | 2019-06-02 11:55 | ER Document Report ---
ED Medical Screen (RME) - General Chief Complaint: Blood Pressure Problem Stated Complaint: BLOOD PRESSURE ISSUE Time Seen by Provider: 06/02/19 11:48 TRAVEL OUTSIDE OF THE [place] IN LAST 30 DAYS: No - HPI Notes: 06/02/19 11:54 Patient is a 49-year-old female with a history of high blood pressure who presents complaining of having increased anxiety, insomnia, depressed mood. Patient has had an increase in life stressors recently as she is going through divorce and her grandchild was born as a stillborn the other day. She has no SI or HI. No visual or auditory hallucinations. Patient is open to speaking with our mental health team. I have treated and performed a rapid initial assessment of this patient. A comprehensive ED assessment and evaluation of the patient, analysis of test results and completion of medical decision making process will be conducted by additional ED providers. PHYSICAL EXAMINATION: GENERAL: Well-appearing, well-nourished and in no acute distress. A&Ox4. Answers questions appropriately. Neuro: Cranial nerves grossly intact. Psych: Patient bouncing her leg and tearful. Anxious. - Related Data Allergies/Adverse Reactions: Iodinated Contrast Media Allergy (Verified 06/02/19 11:50) Penicillins Allergy (Verified 06/02/19 11:50) tramadol Allergy (Verified 06/02/19 11:50) Past Medical History - Social History Chew tobacco use (# tins/day): No Frequency of alcohol use: None Drug Abuse: None - Past Medical History Cardiac Medical History: Reports: Hx Hypercholesterolemia, Hx Hypertension Endocrine Medical History: Reports: Hx Diabetes Mellitus Type 2 Renal/ Medical History: Denies: Hx Peritoneal Dialysis Psychiatric Medical History: Reports: Hx Depression Past Surgical History: Denies: Hx Pacemaker - Immunizations Hx Diphtheria, Pertussis, Tetanus Vaccination: Yes Physical Exam - Vital signs Vitals: Temp Pulse Resp BP Pulse Ox 98.4 F 65 16 194/94 H 99 06/02/19 11:48 06/02/19 11:48 06/02/19 11:48 06/02/19 11:48 06/02/19 11:48 Course - Vital Signs Vital signs: Temp Pulse Resp BP Pulse Ox 98.4 F 65 16 194/94 H 99 06/02/19 11:48 06/02/19 11:48 06/02/19 11:48 06/02/19 11:48 06/02/19 11:48
[2019-06-02 13:18] LABS: ABSOLUTE BASOPHILS # (AUTO) 0.1 10^3/uL (0.0-0.2); ABSOLUTE EOSINOPHILS # (AUTO) 0.1 10^3/uL (0.0-0.6); ABSOLUTE LYMPHOCYTES (AUTO) 2.3 10^3/uL (0.5-4.7); ABSOLUTE MONOCYTES (AUTO) 0.5 10^3/uL (0.1-1.4); ABSOLUTE NEUT (AUTO) 2.5 10^3/uL (1.7-8.2); BASOPHILS % (AUTO) 1.1 % (0-2); EOSINOPHILS % (AUTO) 1.7 % (0-6); HEMATOCRIT 38.4 % (36.0-47.0); HEMOGLOBIN 13.1 g/dL (12.0-15.5); LYMPHOCYTES % (AUTO) 42.4 % (13-45); MEAN CORPUSCULAR HEMOGLOBIN 30.7 pg (27.0-33.4); MEAN CORPUSCULAR VOLUME 90 fl (80-97); MONOCYTES % (AUTO) 8.4 % (3-13); PLATELET COUNT 303 10^3/uL (150-450); RED BLOOD COUNT 4.25 10^6/uL (3.72-5.28); SEGMENTED NEUTROPHILS % (AUTO) 46.4 % (42-78); TOTAL CELLS COUNTED % (AUTO) 100 %; WHITE BLOOD COUNT 5.5 10^3/uL (4.0-10.5)
[2019-06-02 13:33] LABS: APPEARANCE,URINE SLIGHTLY-CLOUDY; BILIRUBIN,URINE NEGATIVE (NEGATIVE); COLOR,URINE YELLOW; GLUCOSE, URINE NEGATIVE (NEGATIVE); KETONES,URINE NEGATIVE (NEGATIVE); LEUKOCYTE ESTERASE,URINE TRACE (NEGATIVE); NITRITE,URINE NEGATIVE (NEGATIVE); PROTEIN,URINE NEGATIVE (NEGATIVE); URINE SPECIFIC GRAVITY 1.015; UROBILINOGEN,URINE NEGATIVE mg/dL (<2.0)
[2019-06-02 13:36] LABS: URINE AMPHETAMINES SCREEN NEGATIVE; URINE BARBITURATES SCREEN NEGATIVE; URINE BENZODIAZEPINES SCREEN NEGATIVE; URINE COCAINE SCREEN NEGATIVE; URINE METHADONE SCREEN NEGATIVE; URINE PHENCYCLIDINE SCREEN NEGATIVE
[2019-06-02 13:39] LABS: URINE MARIJUANA (THC) SCREEN UNCONFIRMED POSITIVE
--- NOTE | 2019-06-02 13:47 | EKG REPORT ---
SEVERITY:- ABNORMAL ECG - SINUS RHYTHM ACCELERATED AV CONDUCTION : Confirmed by: Enrico Peña MD 02-Jun-2019 13:46:34
[2019-06-02 14:04] LABS: ALBUMIN 4.2 g/dL (3.5-5.0); ALKALINE PHOSPHATASE 108 U/L (38-126); ANION GAP 12 (5-19); ASPARTATE AMINO TRANSFERASE 24 U/L (14-36); BILIRUBIN,DIRECT 0.2 mg/dL (0.0-0.4); BILIRUBIN,TOTAL 0.3 mg/dL (0.2-1.3); BLOOD UREA NITROGEN 25 mg/dL (7-20); CALCIUM 10.1 mg/dL (8.4-10.2); CARBON DIOXIDE 26 mmol/L (22-30); CHLORIDE 104 mmol/L (98-107); GLUCOSE 89 mg/dL (75-110); POTASSIUM 3.8 mmol/L (3.6-5.0); SALICYLATE 18.8 mg/dL (2.0-20.0); TOTAL PROTEIN 7.4 g/dL (6.3-8.2)
[2019-06-02 14:05] LABS: ACETAMINOPHEN < 10 ug/mL (10-30); ALCOHOL < 10 mg/dL (NONE DETECTED)
[2019-06-02] MEDS ORDERED: DIPHENHYDRAMINE HCL 50 MG/ML VIAL IV ONE (14:17)
[2019-06-02] MEDS ORDERED: NORMAL SALINE 1000 ML 1,000 ML IV ONE (14:17)
[2019-06-02] MEDS ORDERED: KETOROLAC TROMETHAMINE INJ/PF 30 MG/1 ML SDV IV ONE (14:17)
[2019-06-02] MEDS ORDERED: METOCLOPRAMIDE HCL INJ/PF 10 MG/2 ML SDV IV ONE (14:17)
--- NOTE | 2019-06-02 14:27 | ER Document Report ---
ED General - General Chief Complaint: Anxiety Stated Complaint: BLOOD PRESSURE ISSUE Time Seen by Provider: 06/02/19 11:48 TRAVEL OUTSIDE OF THE [place] IN LAST 30 DAYS: No - HPI Notes: Patient is a 49-year-old female that presents to the emergency department for evaluation of increased blood pressure, increased stress. She has a history of high blood pressure. She states that right now she has a headache behind her left ear and over her eyes. It is sharp and stabbing, with associated photophobia. She has some nausea as well. She states this headache is typical of when her blood pressure is elevated. She states is been taking her blood pressure medications as prescribed. She admits to being under a significant amount of stress. She is currently going through divorce. Her grandchild was a stillborn recently. She has been having trouble at work, has recently been given another chance, and is worried that her severe anxiety is going to hinder her. She has taken Vicodin and Xanax in the past, but states she cannot afford to see her primary care provider at this time. She denies any suicidal or homicidal ideation, no visual or auditory hallucination. - Related Data Allergies/Adverse Reactions: Iodinated Contrast Media Allergy (Verified 06/02/19 11:50) Penicillins Allergy (Verified 06/02/19 11:50) tramadol Allergy (Verified 06/02/19 11:50) Home Medications: List reviewed, please see chart Past Medical History - General Information source: Patient - Social History Smoking Status: Never Smoker Chew tobacco use (# tins/day): No Frequency of alcohol use: None Drug Abuse: None Family History: CAD, DM, Hypertension Patient has suicidal ideation: No Patient has homicidal ideation: No - Past Medical History Cardiac Medical History: Reports: Hx Hypercholesterolemia, Hx Hypertension Endocrine Medical History: Reports: Hx Diabetes Mellitus Type 2 Renal/ Medical History: Denies: Hx Peritoneal Dialysis Psychiatric Medical History: Reports: Hx Depression Past Surgical History: Denies: Hx Pacemaker - Immunizations Hx Diphtheria, Pertussis, Tetanus Vaccination: Yes Review of Systems - Review of Systems Constitutional: No symptoms reported EENT: No symptoms reported Cardiovascular: No symptoms reported Respiratory: No symptoms reported Gastrointestinal: No symptoms reported Genitourinary: No symptoms reported Musculoskeletal: No symptoms reported Skin: No symptoms reported Neurological/Psychological: See HPI Physical Exam - Vital signs Vitals: Temp Pulse Resp BP Pulse Ox 98.4 F 65 16 194/94 H 99 06/02/19 11:48 06/02/19 11:48 06/02/19 11:48 06/02/19 11:48 06/02/19 11:48 - Notes Notes: This is a pleasant 49-year-old female who appears her stated age in no acute distress. She maintains good eye contact, but does have a flat and depressed affect. Vital signs reviewed, please refer to chart. Head is normocephalic, atraumatic. Pupils equal round, reactive to light. Neck is supple without meningismus. Heart is regular rate and rhythm. Lungs are clear to auscultation bilaterally. Abdomen is soft, nontender, normoactive bowel sounds throughout. Extremities without cyanosis, clubbing. Posterior calves are nontender. Peripheral pulses are equal. Skin is warm and dry. Patient is awake, alert, neurological exam is nonfocal. Course - Re-evaluation Re-evalutation: 06/02/19 14:20 Patient presents emergency department for evaluation. She was initially seen through triage, had laboratory investigations obtained. I will get and treat her for her headache, Toradol, Reglan, Benadryl, IV fluids. The patient did discuss options with psychosocial team. The patient already sees a counselor, is on SSRIs. She states that she believes a small amount of Xanax would be helpful. At this point, I am not opposed to short course of Xanax to help this patient through her grief reaction and increased stress. Patient understands she needs to follow-up closely with primary care provider, and certainly if her blood pressures continue to be uncontrolled she may need further medication to do this. She voiced understanding and will be discharged following completion of medications. - Vital Signs Vital signs: Temp Pulse Resp BP Pulse Ox 98.4 F 65 16 194/94 H 99 06/02/19 11:48 06/02/19 11:48 06/02/19 11:48 06/02/19 11:48 06/02/19 11:48 - Laboratory Result Diagrams: 06/02/19 12:54 06/02/19 12:54 Laboratory results interpreted by me: 06/02/19 06/02/19 06/02/19 12:54 12:54 12:54 RDW 15.0 H BUN 25 H Est GFR ([facility]DRD) Non-Af 55 L Ur Leukocyte Esterase TRACE H Acetaminophen < 10 L Discharge - Discharge Clinical Impression: Anxiety, Stress Hypertension Qualifiers: Hypertension type: unspecified Qualified Code(s): I10 - Essential (primary) hypertension Headache Qualifiers: Headache type: unspecified Headache chronicity pattern: acute headache Condition: Stable Disposition: HOME, SELF-CARE Instructions: Anxiety ([facility]), High Blood Pressure, Requiring Treatment ([facility]) Additional Instructions: Rest. Take Xanax as needed for severe anxiety, please do not mix with alcohol. Be cautious, this medication can cause severe drowsiness and dizziness. Follow- up with primary care in 1 to 2 weeks. Return to the ED with worsening or new concerning symptoms of any sort.
[2019-06-02 17:09] VITALS: BP 155/90
== END 2019-06-02 17:04 | disposition home or self-care (01) ==
LOC: ER 11:41
DX: F41.9 Anxiety disorder, unspecified (principal); F43.9 Reaction to severe stress, unspecified; R51 Headache; I10 Essential (primary) hypertension; H53.149 Visual discomfort, unspecified; E11.9 Type 2 diabetes mellitus without complications
CPT/HCPCS: 93005; 99283; 96361; 96374; 96375; 36415; 80307 ×4; 85025; 80053; 81001; 93010; J1200; J1885; J2765; J7030

== ENCOUNTER 2019-06-22 15:58 | Emergency (ER) | payer SELFPAY ==
--- NOTE | 2019-06-22 16:36 | RADIOLOGY REPORT (SQ) ---
EXAM DESCRIPTION: CHEST SINGLE VIEW COMPLETED DATE/TIME: 06/22/2019 4:26 pm REASON FOR STUDY: Chest pain COMPARISON: 01/02/2017 EXAM PARAMETERS: NUMBER OF VIEWS: One view. TECHNIQUE: Single frontal radiographic view of the chest acquired. RADIATION DOSE: NA LIMITATIONS: None. FINDINGS: LUNGS AND PLEURA: No opacities, masses or pneumothorax. No pleural effusion. MEDIASTINUM AND HILAR STRUCTURES: No masses. Contour normal. HEART AND VASCULAR STRUCTURES: The heart size is borderline. There is no philippe pulmonary edema. BONES: No acute findings. HARDWARE: None in the chest. OTHER: No other significant finding. IMPRESSION: Borderline cardiomegaly without pulmonary edema. TECHNICAL DOCUMENTATION: JOB ID: [id number] [employer]- All Rights Reserved Reading location - IP/workstation name: [email or web address]
[2019-06-22 17:25] LABS: ABSOLUTE BASOPHILS # (AUTO) 0.1 10^3/uL (0.0-0.2); ABSOLUTE LYMPHOCYTES (AUTO) 0.9 10^3/uL (0.5-4.7); ABSOLUTE MONOCYTES (AUTO) 0.1 10^3/uL (0.1-1.4); ABSOLUTE NEUT (AUTO) 5.8 10^3/uL (1.7-8.2); BASOPHILS % (AUTO) 0.8 % (0-2); HEMATOCRIT 40.3 % (36.0-47.0); HEMOGLOBIN 13.9 g/dL (12.0-15.5); LYMPHOCYTES % (AUTO) 12.8 % (13-45); MEAN CORPUSCULAR HEMOGLOBIN 30.9 pg (27.0-33.4); MEAN CORPUSCULAR HGB CONC 34.5 g/dL (32.0-36.0); MEAN CORPUSCULAR VOLUME 90 fl (80-97); MONOCYTES % (AUTO) 2.2 % (3-13); PLATELET COUNT 324 10^3/uL (150-450); RED BLOOD COUNT 4.49 10^6/uL (3.72-5.28); RED CELL DISTRIBUTION WIDTH 15.2 % (11.5-14.0); SEGMENTED NEUTROPHILS % (AUTO) 84.2 % (42-78); TOTAL CELLS COUNTED % (AUTO) 100 %; WHITE BLOOD COUNT 6.9 10^3/uL (4.0-10.5)
[2019-06-22 17:43] LABS: ALKALINE PHOSPHATASE 116 U/L (38-126); ANION GAP 10 (5-19); ASPARTATE AMINO TRANSFERASE 26 U/L (14-36); BILIRUBIN,TOTAL 0.5 mg/dL (0.2-1.3); BLOOD UREA NITROGEN 14 mg/dL (7-20); CALCIUM 10.7 mg/dL (8.4-10.2); CARBON DIOXIDE 22 mmol/L (22-30); CHLORIDE 105 mmol/L (98-107); CREATINE KINASE 120 U/L (30-135); GLUCOSE 132 mg/dL (75-110); POTASSIUM 4.1 mmol/L (3.6-5.0); TOTAL PROTEIN 8.4 g/dL (6.3-8.2)
--- NOTE | 2019-06-22 17:45 | EKG REPORT ---
SEVERITY:- BORDERLINE ECG - SINUS RHYTHM VENTRICULAR PREMATURE COMPLEX : Confirmed by: Enrico Peña MD 22-Jun-2019 17:44:35
[2019-06-22 17:54] LABS: CREATINE KINASE MB 1.28 ng/mL (<4.55)
[2019-06-22 17:55] LABS: TROPONIN I < 0.012 ng/mL
[2019-06-22] MEDS ORDERED: NORMAL SALINE 1000 ML 1,000 ML IV ONE (17:56)
[2019-06-22] MEDS ORDERED: KETOROLAC TROMETHAMINE INJ/PF 30 MG/1 ML SDV IV ONE (17:57)
[2019-06-22] MEDS ORDERED: ONDANSETRON HCL INJ/PF 4 MG/2 ML SDV IV ONE (17:57)
--- NOTE | 2019-06-22 18:03 | ER Document Report ---
ED General - General Chief Complaint: Chest Pain Stated Complaint: CHEST PAIN/TROUBLE BREATHING Time Seen by Provider: 06/22/19 17:07 Primary Care Provider: CESAR JALLOH MD [Primary Care Provider] - Follow up as needed Information source: Patient - She arrived Notes: 49-year-old woman presents to the emergency department with a history of nausea, vomiting, cramping, abdominal pain, and diarrhea which began after eating food which worse rewarmed after a [employer]. She states that the symptoms began last night with multiple episodes of vomiting and then chest pain which developed today. She denies radiation of pain or prior history of CAD. She complains of continued cramping abdominal pain, nausea and dry heaves. She denies fever. She was brought to the emergency department by EMS, given aspirin, 3 nitroglycerin sublingual, and 4 mg of IV Zofran. She has a medical history of anxiety, Crohn's disease and hypertension. TRAVEL OUTSIDE OF THE [place] IN LAST 30 DAYS: No - Related Data Allergies/Adverse Reactions: Iodinated Contrast Media Allergy (Verified 06/02/19 11:50) Penicillins Allergy (Verified 06/02/19 11:50) tramadol Allergy (Verified 06/02/19 11:50) Past Medical History - Social History Smoking Status: Unknown if Ever Smoked Family History: CAD, DM, Hypertension - Past Medical History Cardiac Medical History: Reports: Hx Hypercholesterolemia, Hx Hypertension Endocrine Medical History: Reports: Hx Diabetes Mellitus Type 2 Renal/ Medical History: Denies: Hx Peritoneal Dialysis Psychiatric Medical History: Reports: Hx Depression Past Surgical History: Denies: Hx Pacemaker - Immunizations Hx Diphtheria, Pertussis, Tetanus Vaccination: Yes Review of Systems - Review of Systems Notes: Constitutional: Negative for fever. HENT: Negative for sore throat. Eyes: Negative for visual changes. Cardiovascular: + Chest pain. Respiratory: + Shortness of breath. Gastrointestinal: + Abdominal pain, + vomiting, + diarrhea. Genitourinary: Negative for dysuria. Musculoskeletal: Negative for back pain. Skin: Negative for rash. Neurological: Negative for headaches, weakness or numbness. 10 point ROS negative except as marked above and in HPI. Physical Exam - Vital signs Vitals: Pulse Ox 99 06/22/19 16:00 - Notes Notes: PHYSICAL EXAMINATION: Physical Exam: General: Well-nourished well-developed woman in moderate distress secondary to abdominal pain HEENT: NC/AT, pupils equal round and reactive to light, MM moist,nares clear, oropharynx clear Neck: supple, no adenopathy, no masses. Lungs: clear, no wheezing, no rales no rhonchi CVS: Regular rate and rhythm no murmur gallop or rub Abdomen: Diffuse abdominal tenderness with spasm and episodes, no rebound, mild guarding, no masses Ext: No edema clubbing or cyanosis. Neuro: Alert and responsive, moving all 4 extremities on command, cranial nerves intact. Skin: Intact no open lesions, no rash PSYCH: Normal mood, normal affect. Course - Re-evaluation Re-evalutation: 06/22/19 22:08 Patient is given IV fluids and analgesic medication along with antiemetics. After the Compazine and hydromorphone the patient was markedly improved blood pressure improved and she is requesting to go home. She requested medications for Crohn's disease at the time of discharge., To give the patient a short co urse of prednisone along with dicyclomine. She is in agreement with this plan and will follow-up with her primary care doctor as needed. - Vital Signs Vital signs: Temp Pulse Resp BP Pulse Ox 97.9 F 60 14 123/65 97 06/22/19 22:52 06/22/19 16:13 06/22/19 22:30 06/22/19 22:30 06/22/19 22:30 - Laboratory Result Diagrams: 06/22/19 17:03 06/22/19 17:03 Laboratory results interpreted by me: 06/22/19 06/22/19 17:03 17:03 RDW 15.2 H Lymph % (Auto) 12.8 L [place] % (Auto) 2.2 L Seg Neutrophils % 84.2 H Sodium 136.8 L Glucose 132 H Calcium 10.7 H Total Protein 8.4 H 06/22/19 22:09 I have reviewed laboratory data and used this information for the treatment decisions regarding the patient. - Diagnostic Test Radiology reviewed: Image reviewed, Reports reviewed - Chest x-ray: No acute infiltrates or effusion. Discharge - Discharge Clinical Impression: Diffuse abdominal pain, Nausea vomiting and diarrhea Crohn's disease Qualifiers: Gastrointestinal tract location: unspecified location Digestive disease complication type: unspecified complication Qualified Code(s): K50.919 - Crohn's disease, unspecified, with unspecified complications Condition: Good Disposition: HOME, SELF-CARE Instructions: Abdominal Pain ([facility]), Antispasmodics ([facility]), Vomiting ([facility]) Additional Instructions: You were treated today for the nausea vomiting and diarrhea with abdominal pain, a prescription for prednisone and dicyclomine it is given for treatment of Crohn's disease. Please follow-up with primary care doctor for continued medical care and management of your illness. You may return to the emergency department if your symptoms worsen or if you have other concerns. Prescriptions: Dicyclomine HCl [Bentyl 10 mg Capsule] 1 cap PO TID #30 cap Prednisone [Deltasone 20 mg Tablet] 1 tab PO BID 5 Days #10 tablet Referrals: CESAR JALLOH MD [Primary Care Provider] - Follow up as needed
[2019-06-22] MEDS ORDERED: HYDROMORPHONE HCL INJ/PF 2 MG/ML AMPULE IV ONE (20:09)
[2019-06-22] MEDS ORDERED: PROCHLORPERAZINE EDISYLATE INJ 10 MG/2 ML VIAL IV ONE (20:10)
[2019-06-22] MEDS ORDERED: ACETAMINOPHEN 325 MG TABLET PO ONE (21:12)
[2019-06-22] MEDS ORDERED: LABETALOL HCL INJ 20 MG/4 ML DISP.SYRIN IV ONE (21:12)
[2019-06-22 22:49] VITALS: BP 123/65
== END 2019-06-22 22:52 | disposition home or self-care (01) ==
LOC: ER 15:58
DX: K50.919 Crohn's disease, unspecified, with unspecified complications (principal); R11.2 Nausea with vomiting, unspecified; R19.7 Diarrhea, unspecified; R07.9 Chest pain, unspecified; R06.00 Dyspnea, unspecified; E78.00 Pure hypercholesterolemia, unspecified; I10 Essential (primary) hypertension; E11.9 Type 2 diabetes mellitus without complications; Z88.0 Allergy status to penicillin
CPT/HCPCS: 93005; 99284; 96361; 96374; 96375; 36415; 82553; 82550; 85025; 80053; 84484; 71045; 93010; J1885; J1170; J0780; J2405; J7030

== ENCOUNTER 2019-06-23 10:26 | Emergency (ER) | payer SELFPAY ==
[2019-06-23 11:42] LABS: ABSOLUTE LYMPHOCYTES (AUTO) 1.2 10^3/uL (0.5-4.7); ABSOLUTE MONOCYTES (AUTO) 0.5 10^3/uL (0.1-1.4); ABSOLUTE NEUT (AUTO) 6.7 10^3/uL (1.7-8.2); BASOPHILS % (AUTO) 0.3 % (0-2); HEMOGLOBIN 14.3 g/dL (12.0-15.5); LYMPHOCYTES % (AUTO) 14.3 % (13-45); MEAN CORPUSCULAR HEMOGLOBIN 30.5 pg (27.0-33.4); MEAN CORPUSCULAR HGB CONC 34.1 g/dL (32.0-36.0); MEAN CORPUSCULAR VOLUME 90 fl (80-97); MONOCYTES % (AUTO) 5.6 % (3-13); PLATELET COUNT 352 10^3/uL (150-450); RED CELL DISTRIBUTION WIDTH 14.9 % (11.5-14.0); SEGMENTED NEUTROPHILS % (AUTO) 79.8 % (42-78); TOTAL CELLS COUNTED % (AUTO) 100 %; WHITE BLOOD COUNT 8.4 10^3/uL (4.0-10.5)
[2019-06-23] MEDS ORDERED: NORMAL SALINE 1000 ML 1,000 ML IV ONE (11:56)
[2019-06-23] MEDS ORDERED: ONDANSETRON HCL INJ/PF 4 MG/2 ML SDV IV ONE ×2 (11:56→14:39)
[2019-06-23] MEDS ORDERED: MORPHINE SULFATE 10 MG/ML INJ IV ONE (11:56)
[2019-06-23 12:03] LABS: ALKALINE PHOSPHATASE 113 U/L (38-126); ANION GAP 11 (5-19); ASPARTATE AMINO TRANSFERASE 25 U/L (14-36); BILIRUBIN,TOTAL 0.6 mg/dL (0.2-1.3); BLOOD UREA NITROGEN 15 mg/dL (7-20); CALCIUM 10.5 mg/dL (8.4-10.2); CARBON DIOXIDE 22 mmol/L (22-30); CHLORIDE 104 mmol/L (98-107); GLUCOSE 137 mg/dL (75-110); POTASSIUM 3.9 mmol/L (3.6-5.0)
--- NOTE | 2019-06-23 12:03 | ER Document Report ---
ED GI/ - General Chief Complaint: Vomiting/Diarrhea Stated Complaint: ABDOMINAL PAIN Time Seen by Provider: 06/23/19 11:36 Information source: Patient Notes: HPI: 49-year-old female with past medical history as recorded including Crohn's disease in "remission" not on any immunomodulating drugs, who presents today wi th the onset 2 days ago of nausea, vomiting, and diarrhea. She developed chest pain to the right upper chest wall after multiple bouts of vomiting. She was seen here yesterday. Work-up was unremarkable from a cardiac standpoint. Patient states she has had no more diarrhea but has had multiple bouts of vomiting with some chest pain and some shortness of breath that has continued. Patient denies any calf pain or leg swelling. She denies fevers. She denies dysuria or flank pain. ROS: See HPI All other review of systems reviewed and otherwise negative Reviewed vital signs and nursing note as charted by RN. PHYSICAL EXAM: CONSTITUTIONAL: Patient is laying in a ball in the bed in obvious discomfort HEAD: Normocephalic; atraumatic EYES: Sclerae non-icteric ENT: Normal nose; no rhinorrhea; moist mucous membranes; pharynx without lesions noted NECK: Supple without meningismus; non-tender; no cervical lymphadenopathy, no masses CARD: Regular rate and rhythm; no murmurs; symmetric distal pulses RESP: Normal chest excursion without splinting or tachypnea; breath sounds clear and equal bilaterally; no wheezes, no rhonchi, no rales ABD/GI: Normal bowel sounds; non-distended; soft, tender diffusely without any rebound or guarding. No palpable masses or abdominal bruits BACK: The back appears normal and is non-tender to palpation EXT: Normal ROM in all joints; non-tender to palpation; no edema SKIN: No acute lesions noted NEURO: CN 2-12 intact; 5/5 bilateral upper and lower extremity strength with sensation intact to light touch PSYCH: The patient's mood and manner are appropriate. Grooming and personal hygiene are appropriate. TRAVEL OUTSIDE OF THE [place] IN LAST 30 DAYS: No - Related Data Allergies/Adverse Reactions: Iodinated Contrast Media Allergy (Verified 06/02/19 11:50) Penicillins Allergy (Verified 06/02/19 11:50) tramadol Allergy (Verified 06/02/19 11:50) Past Medical History - Social History Smoking Status: Unknown if Ever Smoked Family History: CAD, DM, Hypertension Patient has suicidal ideation: No Patient has homicidal ideation: No - Past Medical History Cardiac Medical History: Reports: Hx Hypercholesterolemia, Hx Hypertension Endocrine Medical History: Reports: Hx Diabetes Mellitus Type 2 Renal/ Medical History: Denies: Hx Peritoneal Dialysis Psychiatric Medical History: Reports: Hx Depression Past Surgical History: Denies: Hx Pacemaker - Immunizations Hx Diphtheria, Pertussis, Tetanus Vaccination: Yes Physical Exam - Vital signs Vitals: Temp Pulse Resp BP Pulse Ox 98.3 F 67 20 181/78 H 96 06/23/19 11:12 06/23/19 11:12 06/23/19 11:12 06/23/19 11:12 06/23/19 11:12 Course - Re-evaluation Re-evalutation: Given the history and physical examination with a history of Crohn's disease, with some Shortness of breath, chest pain, vomiting, abdominal pain, with increased pretes t probability of PE given the Crohn's disease, we will obtain a CTA of the chest as well as a follow-through for the abdomen. Liver panel and lipase are pending. We will provide fluids and pain medications. 06/23/19 12:55 Heart rate 59, normal sinus rhythm, PACs present, no obvious ST elevation or depression. Inverted T waves in lead V2. This inverted T wave is new compared to an EKG yesterday. Labs, white count, and troponin as recorded. Patient states she has an anaphylactic reaction to IV contrast. She states she cannot take p.o. contrast secondary to the vomiting. We have ordered a CT scan without contrast as well as a VQ scan. 06/23/19 15:29 CT scan as recorded. Awaiting VQ scan. Patient is feeling better. 06/23/19 16:55 Labs and imaging as recorded. Patient is feeling better. Abdomen is improved. Denies any chest pain or shortness of breath at this time. Patient and daughter feel very comfortable going home at this time. I believe given the extensive work-up that this is a reasonable option. Patient does have a primary care follow-up. I will provide nausea and pain medications as a prescription. - Vital Signs Vital signs: Temp Pulse Resp BP Pulse Ox 98.3 F 67 20 181/78 H 96 06/23/19 11:12 06/23/19 11:12 06/23/19 11:12 06/23/19 11:12 06/23/19 11:12 - Laboratory Result Diagrams: 06/23/19 11:25 06/23/19 11:25 Laboratory results interpreted by me: 06/23/19 06/23/19 11:25 11:25 RDW 14.9 H Seg Neutrophils % 79.8 H Sodium 136.6 L Glucose 137 H Calcium 10.5 H Discharge - Discharge Clinical Impression: Nausea vomiting and diarrhea, Chest discomfort Condition: Good Disposition: HOME, SELF-CARE Additional Instructions: Come back immediately with any increased pain, persistent vomiting, fevers, change in location or quality of pain, shortness of breath, or any other acute problems. Please take the nausea medications and pain medications as needed and follow-up with the primary care physician. Prescriptions: Oxycodone HCl/Acetaminophen [Percocet 5-325 mg Tablet] 1 tab PO ASDIR PRN #15 tablet PRN Reason: Oxycodone HCl/Acetaminophen [Percocet 5-325 mg Tablet] 1 tab PO ASDIR PRN #15 tablet PRN Reason: Oxycodone HCl/Acetaminophen [Percocet 5-325 mg Tablet] 1 tab PO ASDIR PRN #15 tablet PRN Reason: Ondansetron [Zofran Odt 4 mg Tablet] 1 tab PO Q6H #15 tab.tima
[2019-06-23] MEDS ORDERED: PROMETHAZINE HCL INJ 25 MG/1 ML VIAL IV ONE ×2 (12:55→16:53)
--- NOTE | 2019-06-23 13:53 | EKG REPORT ---
SEVERITY:- ABNORMAL ECG - SINUS RHYTHM ATRIAL PREMATURE COMPLEX NONSPECIFIC INTRAVENTRICULAR CONDUCTION DELAY PROBABLE LATERAL INFARCT, OLD BORDERLINE ST DEPRESSION, LATERAL LEADS : Confirmed by: Enrico Peña MD 23-Jun-2019 13:52:19
--- NOTE | 2019-06-23 14:51 | RADIOLOGY REPORT (SQ) ---
EXAM DESCRIPTION: CT ABD/PELVIS NO ORAL OR IV COMPLETED DATE/TIME: 06/23/2019 2:22 pm REASON FOR STUDY: 37; crohns, vomiting and pain COMPARISON: None. TECHNIQUE: CT scan of the abdomen and pelvis performed without intravenous or oral contrast. Images reviewed with lung, soft tissue, and bone windows. Reconstructed coronal and sagittal MPR images revi ewed. All images stored on PACS. All CT scanners at this facility use dose modulation, iterative reconstruction, and/or weight based d osing when appropriate to reduce radiation dose to as low as reasonably achievable (ALARA). [facility]: Dose Right [facility]: CareDose [facility]: Dose Right [facility]: Teradose 4D [facility]: Smart Twistle RADIATION DOSE: CT Rad equipment meets quality standard of care and radiation dose reduction techniq ues were employed. CTDIvol: 8.0 mGy. DLP: 449 mGy-cm.mGy. LIMITATIONS: None. FINDINGS: LOWER CHEST: No significant findings. No nodules or infiltrates. NON-CONTRASTED LIVER, SPLEEN, ADRENALS: Evaluation limited by lack of IV contrast. No identified sign ificant masses. PANCREAS: No masses. No peripancreatic inflammatory changes. GALLBLADDER: No identified stones by CT criteria. No inflammatory changes to suggest cholecystitis. RIGHT KIDNEY AND URETER: No suspicious masses. Assessment limited by lack of IV contrast. No signif icant calcifications. No hydronephrosis or hydroureter. LEFT KIDNEY AND URETER: No suspicious masses. Assessment limited by lack of IV contrast. No signifi cant calcifications. No hydronephrosis or hydroureter. AORTA AND RETROPERITONEUM: No aneurysm. No retroperitoneal masses or adenopathy. BOWEL AND PERITONEAL CAVITY: No obvious masses or inflammatory changes. No free fluid. APPENDIX: Normal. PELVIS, BLADDER, AND ABDOMINAL WALL:There is an 18 mm right adnexal cyst. Urinary bladder is normal. No abnormal pelvic mass. No free fluid. BONES: No significant findings. OTHER: No other significant finding. IMPRESSION: 1. Small right ovarian cyst is almost certainly benign. No additional imaging is requi red for this. 2. No acute finding in the abdomen or pelvis. COMMENT: Quality ID # [id number]: Final reports with documentation of one or more dose reduction techniques (e.g., Automated exposure control, adjustment of the mA and/or kV according to patient size, use of iterative reconstruction technique) TECHNICAL DOCUMENTATION: JOB ID: [id number] [employer]- All Rights Reserved Reading location - IP/workstation name: [email or web address]
--- NOTE | 2019-06-23 16:17 | RADIOLOGY REPORT (SQ) ---
EXAM DESCRIPTION: NM LUNG VENT/PERF SCAN COMPLETED DATE/TIME: 06/23/2019 3:53 pm REASON FOR STUDY: 39; cp crohns COMPARISON: Chest x-ray dated 06/22/2019. RADIONUCLIDE AND DOSE: 5.26 millicuries TC-99m MAA Intravenous 32.9 millicuries TC-99m DTPA Inhaled aerosol TECHNIQUE: Anterior and posterior views of the lungs acquired post ventilation of DTPA aerosol. Eig ht views of the lungs acquired following injection of MAA. LIMITATIONS: None. FINDINGS: VENTILATION: Symmetric and homogeneous distribution of DTPA aerosol during ventilatory pha se. No significant areas of photopenia. PERFUSION: Perfusion images with normal homogenous activity and no wedge-shaped or segmental defects. No ventilation-perfusion mismatches. OTHER: No other significant finding. IMPRESSION: NORMAL VENTILATION-PERFUSION LUNG SCAN. NEGATIVE FOR PULMONARY EMBOLI. TECHNICAL DOCUMENTATION: JOB ID: [id number] [employer] All Rights Reserved Reading location - IP/workstation name: [email or web address]
[2019-06-23 17:57] LABS: APPEARANCE,URINE CLEAR; BILIRUBIN,URINE NEGATIVE (NEGATIVE); COLOR,URINE STRAW; GLUCOSE, URINE NEGATIVE (NEGATIVE); KETONES,URINE NEGATIVE (NEGATIVE); LEUKOCYTE ESTERASE,URINE SMALL (NEGATIVE); NITRITE,URINE NEGATIVE (NEGATIVE); PROTEIN,URINE 30 mg/dL (NEGATIVE); UROBILINOGEN,URINE NEGATIVE mg/dL (<2.0)
[2019-06-23] MEDS ORDERED: CEFTRIAXONE 1 GM/D5W RTU 1 GM/50 ML RTUPB IV ONE (17:57)
[2019-06-23 19:25] VITALS: BP 189/91
== END 2019-06-23 19:27 | disposition home or self-care (01) ==
LOC: ER 10:26
DX: N39.0 Urinary tract infection, site not specified (principal); R11.2 Nausea with vomiting, unspecified; R19.7 Diarrhea, unspecified; R07.9 Chest pain, unspecified; R07.89 Other chest pain; R06.02 Shortness of breath; I10 Essential (primary) hypertension; E11.9 Type 2 diabetes mellitus without complications; R10.9 Unspecified abdominal pain
CPT/HCPCS: 93005; 96376; 99284; 96361; 96375; 96365; 36415; 87086; 83690; 85025; 87088; 80053; 81001; 84484; 78582; 74176; 93010; A9540; A9567; J2270; J2550; J2405; J7030; J0696; Q9969

== ENCOUNTER 2019-06-25 12:31 | Inpatient (IN) | payer SELFPAY ==
[2019-06-25] MEDS ORDERED: ONDANSETRON HCL INJ/PF 4 MG/2 ML SDV IV ONE (13:03)
--- NOTE | 2019-06-25 13:04 | ER Document Report ---
ED Medical Screen (RME) - General Chief Complaint: Vomiting Stated Complaint: VOMITING Time Seen by Provider: 06/25/19 12:59 Mode of Arrival: Wheelchair Information source: Patient Notes: Patient presents complaining of nausea vomiting and lower pelvic pain. Patient has been seen twice previously this week. Patient was started on Keflex for UTI. Patient states she is unable to keep the antibiotic down or her blood pressure medication. Patient states that she was told she has a UTI as well as a Crohn's flareup. I have greeted and performed a rapid initial assessment of this patient. A comprehensive ED assessment and evaluation of the patient, analysis of test results and completion of the medical decision making process will be conducted by additional ED providers. TRAVEL OUTSIDE OF THE [place] IN LAST 30 DAYS: No - Related Data Allergies/Adverse Reactions: Iodinated Contrast Media Allergy (Verified 06/02/19 11:50) Penicillins Allergy (Verified 06/02/19 11:50) tramadol Allergy (Verified 06/02/19 11:50) Home Medications: amlodipine. lisinopril. HCTZ. prozac Past Medical History - Social History Frequency of alcohol use: None Drug Abuse: None - Past Medical History Cardiac Medical History: Reports: Hx Hypercholesterolemia, Hx Hypertension Endocrine Medical History: Reports: Hx Diabetes Mellitus Type 2 Renal/ Medical History: Denies: Hx Peritoneal Dialysis Psychiatric Medical History: Reports: Hx Depression Past Surgical History: Denies: Hx Pacemaker - Immunizations Hx Diphtheria, Pertussis, Tetanus Vaccination: Yes Physical Exam - Vital signs Vitals: Temp Pulse Resp BP Pulse Ox 98.4 F 73 16 159/128 H 97 06/25/19 12:41 06/25/19 12:41 06/25/19 12:41 06/25/19 12:41 06/25/19 12:41 - Abdominal Tenderness: Tender - Right lower pelvic tenderness Course - Vital Signs Vital signs: Temp Pulse Resp BP Pulse Ox 98.4 F 73 16 159/128 H 97 06/25/19 12:41 06/25/19 12:41 06/25/19 12:41 06/25/19 12:41 06/25/19 12:41
[2019-06-25 14:18] LABS: APPEARANCE,URINE CLOUDY; BILIRUBIN,URINE NEGATIVE (NEGATIVE); CALCIUM OXALATE CRYSTALS,URINE FEW /HPF; COLOR,URINE AMBER; GLUCOSE, URINE NEGATIVE (NEGATIVE); KETONES,URINE 20 mg/dL (NEGATIVE); LEUKOCYTE ESTERASE,URINE MODERATE (NEGATIVE); NITRITE,URINE NEGATIVE (NEGATIVE); PROTEIN,URINE >=500 mg/dL (NEGATIVE)
[2019-06-25 14:37] LABS: ABSOLUTE LYMPHOCYTES (AUTO) 2.1 10^3/uL (0.5-4.7); ABSOLUTE MONOCYTES (AUTO) 0.6 10^3/uL (0.1-1.4); BASOPHILS % (AUTO) 0.6 % (0-2); EOSINOPHILS % (AUTO) 0.2 % (0-6); HEMATOCRIT 41.9 % (36.0-47.0); HEMOGLOBIN 14.7 g/dL (12.0-15.5); LYMPHOCYTES % (AUTO) 27.4 % (13-45); MEAN CORPUSCULAR HEMOGLOBIN 31.3 pg (27.0-33.4); MEAN CORPUSCULAR HGB CONC 35.1 g/dL (32.0-36.0); MEAN CORPUSCULAR VOLUME 89 fl (80-97); MONOCYTES % (AUTO) 7.7 % (3-13); PLATELET COUNT 343 10^3/uL (150-450); RED CELL DISTRIBUTION WIDTH 14.7 % (11.5-14.0); SEGMENTED NEUTROPHILS % (AUTO) 64.1 % (42-78); TOTAL CELLS COUNTED % (AUTO) 100 %; WHITE BLOOD COUNT 7.8 10^3/uL (4.0-10.5)
[2019-06-25 15:04] LABS: ALBUMIN 4.9 g/dL (3.5-5.0); ALKALINE PHOSPHATASE 109 U/L (38-126); ANION GAP 14 (5-19); ASPARTATE AMINO TRANSFERASE 22 U/L (14-36); BILIRUBIN,DIRECT 0.3 mg/dL (0.0-0.4); BILIRUBIN,TOTAL 0.8 mg/dL (0.2-1.3); BLOOD UREA NITROGEN 28 mg/dL (7-20); CALCIUM 10.6 mg/dL (8.4-10.2); CARBON DIOXIDE 25 mmol/L (22-30); CHLORIDE 99 mmol/L (98-107); GLUCOSE 118 mg/dL (75-110); POTASSIUM 3.3 mmol/L (3.6-5.0); TOTAL PROTEIN 8.1 g/dL (6.3-8.2)
[2019-06-25] MEDS ORDERED: HYDRALAZINE HCL INJ/PF 20 MG/1 ML SDV IV ONE (16:52)
--- NOTE | 2019-06-25 16:53 | ER Document Report ---
ED General - General Chief Complaint: Vomiting Stated Complaint: VOMITING Time Seen by Provider: 06/25/19 12:59 Mode of Arrival: Wheelchair TRAVEL OUTSIDE OF THE [place] IN LAST 30 DAYS: No - Related Data Allergies/Adverse Reactions: Iodinated Contrast Media Allergy (Verified 06/02/19 11:50) Penicillins Allergy (Verified 06/02/19 11:50) tramadol Allergy (Verified 06/02/19 11:50) Home Medications: amlodipine. lisinopril. HCTZ. prozac Past Medical History - General Information source: Patient - Social History Smoking Status: Never Smoker Frequency of alcohol use: None Drug Abuse: None Family History: CAD, DM, Hypertension Patient has suicidal ideation: No Patient has homicidal ideation: No - Past Medical History Cardiac Medical History: Reports: Hx Hypercholesterolemia, Hx Hypertension Endocrine Medical History: Reports: Hx Diabetes Mellitus Type 2 Renal/ Medical History: Denies: Hx Peritoneal Dialysis Psychiatric Medical History: Reports: Hx Depression Past Surgical History: Denies: Hx Pacemaker - Immunizations Hx Diphtheria, Pertussis, Tetanus Vaccination: Yes Physical Exam - Vital signs Vitals: Temp Pulse Resp BP Pulse Ox 98.4 F 73 16 159/128 H 97 06/25/19 12:41 06/25/19 12:41 06/25/19 12:41 06/25/19 12:41 06/25/19 12:41 Course - Vital Signs Vital signs: Temp Pulse Resp BP Pulse Ox 98.7 F 79 20 189/87 H 98 06/25/19 16:05 06/25/19 16:05 06/25/19 16:05 06/25/19 16:05 06/25/19 16:05 - Laboratory Result Diagrams: 06/25/19 14:17 06/25/19 14:17 Laboratory results interpreted by me: 06/25/19 06/25/19 06/25/19 13:12 14:17 14:17 RDW 14.7 H Potassium 3.3 L BUN 28 H Est GFR (MDRD) Non-Af 50 L Glucose 118 H Calcium 10.6 H Urine Protein >=500 H Urine Ketones 20 H Urine Blood SMALL H Urine Urobilinogen 2.0 H Ur Leukocyte Esterase MODERATE H
[2019-06-25] MEDS ORDERED: DICYCLOMINE HCL INJ 20 MG/2 ML AMPULE IM ONE (17:05)
[2019-06-25] MEDS ORDERED: METOCLOPRAMIDE HCL INJ/PF 10 MG/2 ML SDV IV ONE (17:05)
[2019-06-25] MEDS ORDERED: NORMAL SALINE 1000 ML 1,000 ML IV ONE ×3 (17:06→21:35)
--- NOTE | 2019-06-25 17:51 | ER Document Report ---
ED General - General Chief Complaint: Vomiting Stated Complaint: VOMITING Time Seen by Provider: 06/25/19 12:59 Mode of Arrival: Wheelchair Notes: 49-year-old female with history of Crohn's presents for continued nausea /vomiting and generalized abdominal pain for 3 to 4 days. This is patient's third visit in as many days for the same symptoms. Patient was diagnosed with a UTI yesterday and was prescribed Keflex. Patient states due to the nausea and vomiting she has been unable to keep down the antibiotics or her blood pressure medication. Patient denies any fever, chills, diarrhea. TRAVEL OUTSIDE OF THE [place] IN LAST 30 DAYS: No - Related Data Allergies/Adverse Reactions: Iodinated Contrast Media Allergy (Verified 06/02/19 11:50) Penicillins Allergy (Verified 06/02/19 11:50) tramadol Allergy (Verified 06/02/19 11:50) Home Medications: amlodipine. lisinopril. HCTZ. prozac Past Medical History - General Information source: Patient - Social History Smoking Status: Never Smoker Frequency of alcohol use: None Drug Abuse: None Family History: CAD, DM, Hypertension Patient has suicidal ideation: No Patient has homicidal ideation: No - Past Medical History Cardiac Medical History: Reports: Hx Hypercholesterolemia, Hx Hypertension Endocrine Medical History: Reports: Hx Diabetes Mellitus Type 2 Renal/ Medical History: Denies: Hx Peritoneal Dialysis Psychiatric Medical History: Reports: Hx Depression Past Surgical History: Denies: Hx Pacemaker - Immunizations Hx Diphtheria, Pertussis, Tetanus Vaccination: Yes Review of Systems - Review of Systems Notes: Constitutional: Negative for fever. HENT: Negative for sore throat. Eyes: Negative for visual changes. Cardiovascular: Negative for chest pain. Respiratory: Negative for shortness of breath. Gastrointestinal: Positive for abdominal pain, vomiting, nausea. Negative for diarrhea. Genitourinary: Negative for dysuria. Musculoskeletal: Negative for back pain. Skin: Negative for rash. Neurological: Negative for headaches, weakness or numbness. 10 point ROS negative except as marked above and in HPI. Physical Exam - Vital signs Vitals: Temp Pulse Resp BP Pulse Ox 98.4 F 73 16 159/128 H 97 06/25/19 12:41 06/25/19 12:41 06/25/19 12:41 06/25/19 12:41 06/25/19 12:41 - Notes Notes: GENERAL: Well-appearing, well-nourished and uncomfortable. HEAD: Atraumatic, normocephalic. EYES: Extraocular movements intact, sclera anicteric, conjunctiva are normal. NECK: Normal range of motion, supple without lymphadenopathy or JVD. LUNGS: Breath sounds clear to auscultation bilaterally and equal. No wheezes rales or rhonchi. HEART: Regular rate and rhythm without murmurs, rubs or gallops. ABDOMEN: Soft, diffusely tender. No guarding, no rebound. No masses appreciated. EXTREMITIES: Normal range of motion, no pitting or edema. No clubbing or cyanosis. NEUROLOGICAL: Cranial nerves II through XII grossly intact. Normal speech, normal gait. PSYCH: Normal mood, normal affect. SKIN: Warm, Dry, normal turgor, no rashes or lesions noted. Course - Re-evaluation Re-evalutation: 06/25/19 49-year-old female presents with continued nausea/vomiting and abdominal pain for 3 to 4 days. Patient was seen in this ER yesterday and the day before for the same thing. Patient had negative CT/pelvis 2 days ago. Patient was diagnosed with a UTI yesterday and was prescribed Keflex which she is unable to keep down. Nontoxic, well-appearing. Abd soft, diffusely tender. Nonsurgical abdomen. Pt dry heaving in room. Pt states zofran she was given has not helped. Labwork shows no leukocytosis. Afebrile and nontachycardic. Mild hypokalemia. Reglan and Bentyl ordered. 06/25/19 20:39 PO challenge failed. 06/25/19 21:52 Pt accepted for admission by Dr. Packer, hospitalist. - Vital Signs Vital signs: Temp Pulse Resp BP Pulse Ox 99.0 F 79 20 199/100 H 96 06/25/19 21:02 06/25/19 16:05 06/25/19 21:02 06/25/19 21:02 06/25/19 21:02 - Laboratory Result Diagrams: 06/25/19 14:17 06/25/19 14:17 Laboratory results interpreted by me: 06/25/19 06/25/19 06/25/19 13:12 14:17 14:17 RDW 14.7 H Potassium 3.3 L BUN 28 H Est GFR (MDRD) Non-Af 50 L Glucose 118 H Calcium 10.6 H Urine Protein >=500 H Urine Ketones 20 H Urine Blood SMALL H Urine Urobilinogen 2.0 H Ur Leukocyte Esterase MODERATE H Discharge - Discharge Clinical Impression: Intractable nausea and vomiting, Acute UTI, Hypokalemia Condition: Stable Disposition: ADMITTED INPATIENT Admitting Provider: Ochoa (Hospitalist) Unit Admitted: Medical Floor
[2019-06-25] MEDS ORDERED: PROMETHAZINE HCL INJ 25 MG/1 ML VIAL IV ONE (18:26)
[2019-06-25] MEDS ORDERED: MORPHINE SULFATE 10 MG/ML INJ IV ONE (18:26)
[2019-06-25] MEDS ORDERED: POTASSIUM CHLORIDE 20 MEQ PACKET PO ONE (20:15)
[2019-06-25] MEDS ORDERED: HALOPERIDOL LACTATE INJ 5 MG/1 ML VIAL IV ONE (20:39)
[2019-06-25] MEDS ORDERED: CEFTRIAXONE INJ 1000 MG VIAL IV ONE (21:34)
[2019-06-25] MEDS ORDERED: METOPROLOL TARTRATE PF/INJ 5 MG/5 ML SDV IV ONE (21:44)
[2019-06-25 22:13] LABS: URINE AMPHETAMINES SCREEN NEGATIVE; URINE BARBITURATES SCREEN NEGATIVE; URINE COCAINE SCREEN NEGATIVE; URINE METHADONE SCREEN NEGATIVE; URINE PHENCYCLIDINE SCREEN NEGATIVE
[2019-06-25 22:15] LABS: URINE BENZODIAZEPINES SCREEN UNCONFIRMED POSITIVE; URINE MARIJUANA (THC) SCREEN UNCONFIRMED POSITIVE
[2019-06-25] MEDS ORDERED: MAG HYDROX/AL HYDROX/SIMETH SUSP 30 ML UDCUP PO PRN (23:11)
[2019-06-25] MEDS ORDERED: MAGNESIUM HYDROXIDE SUSP 30 ML UDCUP PO PRN (23:11)
[2019-06-25] MEDS ORDERED: HYDRALAZINE HCL INJ/PF 20 MG/1 ML SDV IV PRN (23:16)
[2019-06-25] MEDS ORDERED: ACETAMINOPHEN 650 MG SUPP.RECT PR PRN (23:16)
[2019-06-25] MEDS ORDERED: MORPHINE SULFATE 10 MG/ML INJ IV PRN (23:16)
[2019-06-25] MEDS ORDERED: CHLORPROMAZINE HCL INJ 25 MG/1 ML AMPULE IV PRN (23:16)
[2019-06-25] MEDS ORDERED: METOPROLOL TARTRATE PF/INJ 5 MG/5 ML SDV IV PRN (23:16)
[2019-06-25] MEDS: FAMOTIDINE 20 MG TABLET PO SCH (23:39)
[2019-06-25] MEDS: ACETAMINOPHEN 325 MG TABLET PO PRN (23:39)
[2019-06-25] MEDS: MORPHINE SULFATE 10 MG/ML INJ IV PRN (23:40)
[2019-06-26] MEDS ORDERED: INFLUENZA QUAD (6MOS+) 2019-20 VAC 0.5 ML SYR IM ONE (00:38)
[2019-06-26] MEDS: POTASSI CL 20 MEQ/D5-1/2NS 1L 1,000 ML IV PRN ×4 (00:50→19:48)
[2019-06-26] MEDS: LORAZEPAM INJ 2 MG/1 ML VIAL IV PRN (00:58)
--- NOTE | 2019-06-26 01:38 | PDOC H&P ---
History of Present Illness Admission Date/PCP: 06/25/19 22:05 No local PCP Patient complains of: Nausea and vomiting History of Present Illness: JOON ECKERT is a 49 year old female who represented to the emergency room for the third time in 3 days with the continued complaint of nausea and vomiting. She admits a 4-day history of continuous nausea and frequent episodes of vomiting associated with suprapubic pain. She admits she has been treated for a urinary tract infection that was diagnosed in the emergency room but has been unable to keep the antibiotic prescribed on her stomach. Her nausea and vomiting are made worse by oral ingestion of food or fluids. She has been unable to keep down solids and has kept down only minimal amounts of oral fluids. She further admits that her symptoms began after eating a rewarmed jewish reunion dinner. In the initial phase of her illness she also had diarrhea and abdominal cramping which subsequently resolved only to be followed by her current symptoms of nausea and vomiting. She admits to the accompanying symptoms of subjective fever with chills, fatigue, malaise and ague. She denies other associated or accompanying signs and symptoms. She denies prior similar episodes. She denies identification of any additional aggravating or ameliorating factors for her nausea and vomiting. In the emergency room she was found to be mildly hypokalemic and her urinary back infection previously diagnosed was reconfirmed. She was also noted to be hypertensive with a blood pressure of 189/100. She was subsequently admitted to the hospital for further evaluation and treatment. Past Medical History Cardiac Medical History: Reports: Hyperlipidema, Hypertension Denies: Coronary Artery Disease, Myocardial Infarction Pulmonary Medical History: Denies: Asthma, Chronic Obstructive Pulmonary Disease (COPD) EENT Medical History: Denies: Cataracts, Ears - Hearing aids Neurological Medical History: Denies: Hemorrhagic CVA, Ischemic CVA, Seizures Endocrine Medical History: Reports: Diabetes Mellitus Type 2 Denies: Diabetes Mellitus Type 1, Hyperthyroidism, Hypothyroidism Renal/ Medical History: Denies: Chronic Kidney Disease, Nephrolithiasis Malignancy Medical History: Reports: None GI Medical History: Reports: Crohn's Disease Denies: Cirrhosis, Gastroesophageal Reflux Disease, Hepatitis, Hiatal Hernia, Peptic Ulcer Disease, Ulcerative Colitis Musculoskeltal Medical History: Denies: Arthritis, Gout Skin Medical History: Denies: Eczema, Psoriasis Psychiatric Medical History: Reports: Depression Denies: Alcohol Dependency, Substance Abuse, Tobacco Dependency Traumatic Medical History: Reports: None Hematology: Denies: Anemia, Bleeding Tendencies Infectious Medical History: Reports: None Past Surgical History Past Surgical History: Reports: None Social History Information Source: Patient Lives with: Alone Smoking Status: Never Smoker Electronic Cigarette use?: No Frequency of Alcohol Use: None Hx Recreational Drug Use: No Drugs: None Hx Prescription Drug Abuse: No - Advance Directive Resuscitation Status: Full Code Surrogate healthcare decision maker:: Marlene Miguel Family History Family History: CAD, DM, Hypertension. denies: Malignancy Parental Family History Reviewed: Yes Children Family History Reviewed: No Sibling(s) Family History Reviewed.: Yes Medication/Allergy Home Medications: Metoprolol Tartrate [Lopressor 50 mg Tablet] 50 mg PO BID #14 tablet 10/13/13 Aspirin [Ecotrin 81 mg EC Tablet] 81 mg PO DAILY #0 tabec 05/12/14 Atorvastatin Calcium [Lipitor 10 mg Tablet] 10 mg PO QHS #0 tablet 05/12/14 Lisinopril [Prinivil 10 mg Tablet] 20 mg PO Q12 #0 tablet 05/12/14 Metoprolol Tartrate [Lopressor 50 mg Tablet] 50 mg PO Q12A #0 tablet 05/12/14 Nifedipine [Procardia XL 30 mg Tablet] 30 mg PO DAILY #0 tab.er.24 05/12/14 Amlodipine Besylate 5 mg PO DAILY #30 tab 10/27/14 Hydrochlorothiazide 25 mg PO DAILY #30 tablet 10/27/14 Hydroxyzine HCl 25 mg PO Q6 PRN #15 tablet 10/27/14 Lisinopril [Zestril] 5 mg PO DAILY #30 tablet 10/27/14 Hydrocodone/Acetaminophen [[place] 5-325 mg Tablet] 1 tab PO Q4 PRN #12 tablet 09/04/16 Amlodipine Besylate 5 mg PO DAILY #15 tab 09/27/16 Lisinopril/Hydrochlorothiazide [Lisinopril-Hctz 20-12.5 mg Tab] 1 each PO DAILY #15 tablet 09/27/16 Amlodipine Besylate 5 mg PO DAILY #14 tab 12/31/16 Promethazine HCl [Phenergan 25 mg Tablet] 25 - 50 mg PO ASDIR PRN #12 tablet 01/02/17 Amlodipine Besylate 5 mg PO DAILY #30 tab 04/29/17 Hydrocodone/Acetaminophen [[place] 5-325 Tablet] 1 each PO Q4 PRN #15 tablet 04/29/17 Lisinopril/Hydrochlorothiazide [Zestoretic 10-12.5 mg Tablet] 1 each PO DAILY #30 tablet 04/29/17 Alprazolam [Xanax 0.5 mg Tablet] 0.5 mg PO TID PRN 10 Days #30 tab 08/12/17 Amlodipine Besylate [Norvasc 5 mg Tablet] 5 mg PO DAILY #30 tablet 08/12/17 Lisinopril/Hydrochlorothiazide [Lisinopril-Hctz 20-12.5 mg Tab] 1 each PO DAILY 30 Days #30 tablet 08/12/17 Alprazolam 0.25 mg PO TIDP PRN #15 tablet 06/02/19 Dicyclomine HCl [Bentyl 10 mg Capsule] 1 cap PO TID #30 cap 06/22/19 Prednisone [Deltasone 20 mg Tablet] 1 tab PO BID 5 Days #10 tablet 06/22/19 Cephalexin Monohydrate [Keflex 500 mg Capsule] 500 mg PO TID 7 Days #21 capsule 06/23/19 Ondansetron [Zofran Odt 4 mg Tablet] 1 tab PO Q6H #15 tab.rapdis 06/23/19 Oxycodone HCl/Acetaminophen [Percocet 5-325 mg Tablet] 1 tab PO ASDIR PRN #15 tablet 06/23/19 Allergies/Adverse Reactions: Iodinated Contrast Media Allergy (Verified 06/02/19 11:50) Penicillins Allergy (Verified 06/02/19 11:50) tramadol Allergy (Verified 06/02/19 11:50) Review of Systems Constitutional: PRESENT: as per HPI, anorexia, chills, fatigue, fever(s) Eyes: ABSENT: visual disturbances, other - Eye pain Ears: ABSENT: hearing changes, other - Ear pain Nose, Mouth, and Throat: ABSENT: headache(s), mouth pain, sore throat Cardiovascular: ABSENT: chest pain, palpitations Respiratory: ABSENT: cough, dyspnea Gastrointestinal: PRESENT: as per HPI, abdominal pain, diarrhea, nausea, vomiting. ABSENT: constipation, hematemesis, hematochezia Genitourinary: ABSENT: difficulty urinating, dysuria, hematuria Musculoskeletal: ABSENT: back pain, joint swelling, muscle weakness Integumentary: ABSENT: pruritus, rash Neurological: ABSENT: confusion, convulsions, focal weakness, memory loss, syncope Psychiatric: ABSENT: anxiety, depression Endocrine: ABSENT: cold intolerance, heat intolerance, polydipsia, polyphagia, polyuria Hematologic/Lymphatic: ABSENT: easy bleeding, easy bruising Allergic/Immunologic: ABSENT: seasonal rhinorrhea Physical Exam Vital Signs: Temp Pulse Resp BP Pulse Ox 99.0 F 79 20 199/100 H 96 06/25/19 21:02 06/25/19 16:05 06/25/19 21:02 06/25/19 21:02 06/25/19 21:02 Intake & Output 06/23/19 06/24/19 06/25/19 23:59 23:59 23:59 Intake Total 1999 Balance 1999 Weight 86.183 kg General appearance: PRESENT: cooperative, mild distress - Secondary to persi stent nausea Head exam: PRESENT: atraumatic, normocephalic Eye exam: PRESENT: conjunctiva pink. ABSENT: conjunctival injection, scleral icterus Ear exam: PRESENT: normal external ear exam. ABSENT: bleeding, drainage Mouth exam: PRESENT: dry mucosa, neck supple Neck exam: ABSENT: thyromegaly, tracheal deviation Respiratory exam: PRESENT: clear to auscultation homer, symmetrical, unlabored Cardiovascular exam: PRESENT: RRR. ABSENT: clicks, gallop, rubs Pulses: PRESENT: normal radial pulses, normal dorsalis pedis pul Vascular exam: PRESENT: normal capillary refill. ABSENT: pallor GI/Abdominal exam: PRESENT: hypoactive bowel sounds, soft, tenderness - Mild suprapubic tenderness Rectal exam: PRESENT: deferred Extremities exam: ABSENT: joint swelling, pedal edema Musculoskeletal exam: ABSENT: deformity, dislocation Neurological exam: PRESENT: alert, oriented to person, oriented to place, oriented to time, oriented to situation, CN II-XII grossly intact. ABSENT: motor sensory deficit Psychiatric exam: PRESENT: appropriate affect, normal mood Skin exam: PRESENT: dry, intact, warm. ABSENT: jaundice, rash, urticaria Results Laboratory Results: 06/25/19 14:17 06/25/19 14:17 06/25/19 06/25/19 06/25/19 13:12 14:17 14:17 WBC 7.8 RBC 4.70 Hgb 14.7 Hct 41.9 MCV 89 MCH 31.3 MCHC 35.1 RDW 14.7 H Plt Count 343 Seg Neutrophils % 64.1 Sodium 137.8 Potassium 3.3 L Chloride 99 Carbon Dioxide 25 Anion Gap 14 BUN 28 H Creatinine 1.14 Est GFR ( Amer) > 60 Glucose 118 H Calcium 10.6 H Total Bilirubin 0.8 AST 22 Alkaline Phosphatase 109 Total Protein 8.1 Albumin 4.9 Lipase 125.1 Urine Color MARCI Urine Appearance CLOUDY Urine pH 6.0 Ur Specific [place] 1.030 Urine Protein >=500 H Urine Glucose (UA) NEGATIVE Urine Ketones 20 H Urine Blood SMALL H Urine Nitrite NEGATIVE Ur Leukocyte Esterase MODERATE H Urine WBC (Auto) >182 Urine RBC (Auto) 170 Assessment and Plan - Diagnosis (1) Intractable nausea and vomiting Is this a current diagnosis for this admission?: Yes (2) UTI (urinary tract infection) Qualifiers: Urinary tract infection type: acute cystitis Hematuria presence: without hematuria Qualified Code(s): N30.00 - Acute cystitis without hematuria Is this a current diagnosis for this admission?: Yes (3) Hypokalemia Is this a current diagnosis for this admission?: Yes (4) Hypertension Qualifiers: Hypertension type: essential hypertension Qualified Code(s): I10 - Essential (primary) hypertension Is this a current diagnosis for this admission?: Yes (5) Hyperlipemia Qualifiers: Hyperlipidemia type: unspecified Qualified Code(s): E78.5 - Hyperlipidemia, unspecified Is this a current diagnosis for this admission?: Yes (6) Crohn's disease Qualifiers: Gastrointestinal tract location: unspecified location Digestive disease complication type: unspecified complication Qualified Code(s): K50.919 - Crohn's disease, unspecified, with unspecified complications Is this a current diagnosis for this admission?: Yes - Plan Summary Summary: Patient is admitted to the medical floor where she will receive routine supportive and symptomatic cares. She will be treated with IV fluid and electrolyte replacement as appropriate. She received Thorazine 25 mg IV every 4 hours as needed for control of nausea and vomiting and she will receive Ativan 1 mg IV every 4 hours as needed for anxiety. She will be treated with IV Rocephin 1 g daily pending urine culture results. Her hypertension will be treated with hydralazine and metoprolol IV as needed to maintain a systolic blood pressure no greater than 160 and a diastolic blood pressure no greater than 100. CBCs, metabolic profiles and magnesium levels to be followed serially as needed. She will use morphine sulfate 2 to 4 mg IV every 2 hours on an as-needed basis for pain control. - Time Time Spent with patient: 15-24 minutes Medications reviewed and adjusted accordingly: Yes Anticipated discharge: Home - Inpatient Certification Based on my medical assessment, after consideration of the patient's comorbidities, presenting symptoms, or acuity I expect that the services needed warrant INPATIENT care.: Yes I certify that my determination is in accordance with my understanding of Medicare's requirements for reasonable and necessary INPATIENT services [42 CFR 412.3e].: Yes Medical Necessity: Failure to Improve With Outpatient Therapy, Need For IV Fluids, Need for Pain Control, Need for IV Antibiotics
[2019-06-26] MEDS: ACETAMINOPHEN 325 MG TABLET PO PRN (05:25)
[2019-06-26] MEDS: HEPARIN SOD (PORCINE) 5,000 UNIT/ML 1 ML VIAL SUBCUT SCH ×3 (05:25→21:42)
[2019-06-26 06:30] LABS: HEMATOCRIT 35.1 % (36.0-47.0); MEAN CORPUSCULAR HEMOGLOBIN 31.3 pg (27.0-33.4); MEAN CORPUSCULAR HGB CONC 34.6 g/dL (32.0-36.0); MEAN CORPUSCULAR VOLUME 90 fl (80-97); PLATELET COUNT 278 10^3/uL (150-450); RED BLOOD COUNT 3.88 10^6/uL (3.72-5.28); RED CELL DISTRIBUTION WIDTH 14.5 % (11.5-14.0); WHITE BLOOD COUNT 7.3 10^3/uL (4.0-10.5)
[2019-06-26 06:33] LABS: HEMOGLOBIN 12.1 g/dL (12.0-15.5)
[2019-06-26 06:51] LABS: ANION GAP 8 (5-19); BLOOD UREA NITROGEN 18 mg/dL (7-20); CARBON DIOXIDE 25 mmol/L (22-30); CHLORIDE 106 mmol/L (98-107); CHOLESTEROL 206.96 mg/dL (0-200); GLUCOSE 121 mg/dL (75-110); POTASSIUM 3.4 mmol/L (3.6-5.0); TRIGLYCERIDES 107 mg/dL (<150)
[2019-06-26] MEDS: MORPHINE SULFATE 10 MG/ML INJ IV PRN ×4 (07:02→19:44)
[2019-06-26 07:11] LABS: DIRECT LDL 119 mg/dL (<100)
[2019-06-26] MEDS: CHLORPROMAZINE HCL INJ 25 MG/1 ML AMPULE IV PRN ×3 (08:58→20:49)
[2019-06-26] MEDS: DOCUSATE SODIUM 100 MG/10 ML UDC PO SCH ×2 (09:05→18:08)
[2019-06-26] MEDS: FAMOTIDINE 20 MG TABLET PO SCH ×2 (09:05→21:42)
--- NOTE | 2019-06-26 10:52 | PDOC PROGRESS REPORT ---
Subjective Progress Note for:: 06/26/19 Subjective:: Patient still somewhat nauseated but no vomiting. She is complaining of a headache and no other complaints. Reason For Visit: INTRACTABLE NAUSEA AND VOMITING,URINARY TRACT INF Physical Exam Vital Signs: Temp Pulse Resp BP Pulse Ox 98.6 F 64 18 141/75 H 95 06/26/19 07:51 06/26/19 07:51 06/26/19 00:14 06/26/19 07:51 06/26/19 07:51 Intake & Output 06/25/19 06/26/19 06/27/19 06:59 06:59 06:59 Intake Total 5000 1000 Output Total 750 Balance 4250 1000 Weight 85.1 kg General appearance: PRESENT: cooperative, mild distress, well-developed Head exam: PRESENT: atraumatic, normocephalic Eye exam: PRESENT: conjunctiva pink. ABSENT: scleral icterus Ear exam: PRESENT: normal external ear exam. ABSENT: bleeding, drainage Respiratory exam: PRESENT: clear to auscultation homer, symmetrical, unlabored. ABSENT: accessory muscle use, prolonged expiratory phas, rales, rhonchi, tachypnea, wheezes Cardiovascular exam: PRESENT: RRR, +S1, +S2, systolic murmur - 1/6 GI/Abdominal exam: PRESENT: hyperactive bowel sounds, soft. ABSENT: distended, tenderness Rectal exam: PRESENT: deferred Gentrourinary exam: ABSENT: indwelling catheter Extremities exam: ABSENT: pedal edema Neurological exam: PRESENT: alert, awake, oriented to person, oriented to place, oriented to time, oriented to situation, CN II-XII grossly intact Psychiatric exam: PRESENT: appropriate affect - Affect reflects her current clinical state. ABSENT: agitated, anxious Focused psych exam: ABSENT: delusional, restlessness Skin exam: PRESENT: dry, normal color, warm. ABSENT: rash Results Laboratory Results: 06/26/19 05:15 06/26/19 05:15 06/25/19 06/25/19 06/25/19 13:12 14:17 14:17 WBC 7.8 RBC 4.70 Hgb 14.7 Hct 41.9 MCV 89 MCH 31.3 MCHC 35.1 RDW 14.7 H Plt Count 343 Seg Neutrophils % 64.1 Sodium 137.8 Potassium 3.3 L Chloride 99 Carbon Dioxide 25 Anion Gap 14 BUN 28 H Creatinine 1.14 Est GFR ( Amer) > 60 Glucose 118 H Calcium 10.6 H Magnesium Total Bilirubin 0.8 AST 22 Alkaline Phosphatase 109 Total Protein 8.1 Albumin 4.9 Triglycerides Cholesterol LDL Cholesterol Direct VLDL Cholesterol HDL Cholesterol Lipase 125.1 TSH Urine Color MARCI Urine Appearance CLOUDY Urine pH 6.0 Ur Specific [place] 1.030 Urine Protein >=500 H Urine Glucose (UA) NEGATIVE Urine Ketones 20 H Urine Blood SMALL H Urine Nitrite NEGATIVE Ur Leukocyte Esterase MODERATE H Urine WBC (Auto) >182 Urine RBC (Auto) 170 06/26/19 06/26/19 06/26/19 05:15 05:15 05:15 WBC 7.3 RBC 3.88 Hgb 12.1 D Hct 35.1 L MCV 90 MCH 31.3 MCHC 34.6 RDW 14.5 H Plt Count 278 Seg Neutrophils % Sodium 138.6 Potassium 3.4 L Chloride 106 Carbon Dioxide 25 Anion Gap 8 BUN 18 Creatinine 0.91 Est GFR ( Amer) > 60 Glucose 121 H Calcium 9.0 Magnesium 2.3 Total Bilirubin AST Alkaline Phosphatase Total Protein Albumin Triglycerides 107 Cholesterol 206.96 H LDL Cholesterol Direct 119 H VLDL Cholesterol 21.0 HDL Cholesterol 46 Lipase TSH 5.62 H Urine Color Urine Appearance Urine pH Ur Specific [place] Urine Protein Urine Glucose (UA) Urine Ketones Urine Blood Urine Nitrite Ur Leukocyte Esterase Urine WBC (Auto) Urine RBC (Auto) Assessment and Plan - Diagnosis (1) Intractable nausea and vomiting Is this a current diagnosis for this admission?: Yes Plan: Still with nausea but reports no vomiting this morning. Toxicology screen was positive for marijuana. It was positive for opiates but those were prescribed in 1 of her previous emergency department visits. She is also positive for benzodiazepines which she has a prescription for from May. She does not have an elevated white blood cell count in the differential is normal. This could be transient gastroenteritis related to food. The marijuana use cannot be discounted. We will continue fluids and antiemetics. (2) UTI (urinary tract infection) Qualifiers: Urinary tract infection type: acute cystitis Hematuria presence: without hematuria Qualified Code(s): N30.00 - Acute cystitis without hematuria Is this a current diagnosis for this admission?: Yes Plan: The patient had a urine culture several days ago. It revealed less than 1000 colonies per milliliter of group B strep and mixed urogenital anuja. This is usually not considered significant. A repeat urine culture is pending. The patient is on ceftriaxone at this time which does provide fairly broad coverage. Await urine culture results. (3) Hypokalemia Is this a current diagnosis for this admission?: Yes Plan: Still with hypokalemia. She is on IV fluids with potassium. We may need to add additional potassium either by IV or p.o. If her stomach settles then p.o. w ould be the preferred route. (4) Hypertension Qualifiers: Hypertension type: essential hypertension Qualified Code(s): I10 - Esse ntial (primary) hypertension Is this a current diagnosis for this admission?: Yes Plan: Continue current medication regimen (5) Hyperlipemia Qualifiers: Hyperlipidemia type: unspecified Qualified Code(s): E78.5 - Hyperlipidemia, unspecified Is this a current diagnosis for this admission?: Yes Plan: Continue statin therapy (6) Crohn's disease Qualifiers: Gastrointestinal tract location: unspecified location Digestive disease complication type: unspecified complication Qualified Code(s): K50.919 - Crohn's disease, unspecified, with unspecified complications Is this a current diagnosis for this admission?: Yes Plan: Appears to be under control. She was given prednisone on the previous emergency department visit. She was having diarrhea at the time. This is been discontinued as there is not seem to be any predominant evidence of Crohn's disease. (7) Hypothyroidism Qualifiers: Hypothyroidism type: unspecified Qualified Code(s): E03.9 - Hypothyroidism, unspecified Is this a current diagnosis for this admission?: Yes Plan: Her TSH is slightly elevated. I will review with the patient to see if she is ever been diagnosed. We may initiate low-dose levothyroxine. - Plan Summary Summary: Patient is admitted to the medical floor where she will receive routine supportive and symptomatic cares. She will be treated with IV fluid and electrolyte replacement as appropriate. She received Thorazine 25 mg IV every 4 hours as needed for control of nausea and vomiting and she will receive Ativan 1 mg IV every 4 hours as needed for anxiety. She will be treated with IV Rocephin 1 g daily pending urine culture results. Her hypertension will be treated with hydralazine and metoprolol IV as needed to maintain a systolic blood pressure no greater than 160 and a diastolic blood pressure no greater than 100. CBCs, metabolic profiles and magnesium levels to be followed serially as needed. She will use morphine sulfate 2 to 4 mg IV every 2 hours on an as-needed basis for pain control. - Time Time Spent with patient: 15-24 minutes Anticipated discharge: Home
[2019-06-26] MEDS: CEFTRIAXONE 1 GM/D5W RTU 1 GM/50 ML RTUPB IV SCH (21:41)
[2019-06-27] MEDS: TRAZODONE HCL 50 MG TABLET PO PRN ×2 (00:49→21:24)
[2019-06-27] MEDS: ACETAMINOPHEN 325 MG TABLET PO PRN ×3 (00:50→20:02)
[2019-06-27 05:35] LABS: HEMATOCRIT 32.3 % (36.0-47.0); HEMOGLOBIN 11.2 g/dL (12.0-15.5); MEAN CORPUSCULAR HEMOGLOBIN 31.7 pg (27.0-33.4); MEAN CORPUSCULAR HGB CONC 34.7 g/dL (32.0-36.0); MEAN CORPUSCULAR VOLUME 91 fl (80-97); PLATELET COUNT 240 10^3/uL (150-450); RED BLOOD COUNT 3.55 10^6/uL (3.72-5.28); RED CELL DISTRIBUTION WIDTH 14.7 % (11.5-14.0); WHITE BLOOD COUNT 5.3 10^3/uL (4.0-10.5)
[2019-06-27] MEDS: HEPARIN SOD (PORCINE) 5,000 UNIT/ML 1 ML VIAL SUBCUT SCH ×3 (05:44→21:22)
[2019-06-27 06:33] LABS: ANION GAP 8 (5-19); BLOOD UREA NITROGEN 9 mg/dL (7-20); CALCIUM 9.1 mg/dL (8.4-10.2); CARBON DIOXIDE 24 mmol/L (22-30); CHLORIDE 109 mmol/L (98-107); GLUCOSE 109 mg/dL (75-110); POTASSIUM 3.5 mmol/L (3.6-5.0)
[2019-06-27] MEDS: CHLORPROMAZINE HCL INJ 25 MG/1 ML AMPULE IV PRN ×3 (07:25→20:01)
[2019-06-27] MEDS: DOCUSATE SODIUM 100 MG/10 ML UDC PO SCH ×2 (09:11→17:52)
[2019-06-27] MEDS: FAMOTIDINE 20 MG TABLET PO SCH ×2 (09:11→21:23)
[2019-06-27] MEDS: FLUOXETINE HCL 20 MG CAPSULE PO SCH (09:11)
--- NOTE | 2019-06-27 09:42 | PDOC PROGRESS REPORT ---
Subjective Progress Note for:: 06/27/19 Subjective:: The patient is a started breakfast. She looks extremely uncomfortable. She is complaining of congestion in her nose and a frontal headache. Reason For Visit: INTRACTABLE NAUSEA AND VOMITING,URINARY TRACT INF Physical Exam Vital Signs: Temp Pulse Resp BP Pulse Ox 97.5 F 66 16 192/87 H 98 06/27/19 07:35 06/27/19 07:35 06/27/19 07:35 06/27/19 07:35 06/27/19 07:35 Intake & Output 06/26/19 06/27/19 06/28/19 06:59 06:59 06:59 Intake Total 5000 4193 Output Total 750 Balance 4250 4193 Weight 85.1 kg 86.7 kg General appearance: PRESENT: cooperative, mild distress, well-developed Head exam: PRESENT: atraumatic, normocephalic Eye exam: PRESENT: conjunctiva pink. ABSENT: scleral icterus Ear exam: PRESENT: normal external ear exam, other - Patient is tender over the frontal and maxillary sinuses.. ABSENT: bleeding, drainage Respiratory exam: PRESENT: clear to auscultation homer, symmetrical, unlabored. ABSENT: accessory muscle use, prolonged expiratory phas, rales, rhonchi, tachypnea, wheezes Cardiovascular exam: PRESENT: RRR, +S1, +S2 GI/Abdominal exam: PRESENT: normal bowel sounds, soft. ABSENT: distended, tenderness Gentrourinary exam: ABSENT: indwelling catheter Extremities exam: ABSENT: joint swelling, pedal edema Musculoskeletal exam: PRESENT: ambulatory, normal inspection Neurological exam: PRESENT: alert, awake, oriented to person, oriented to place, oriented to time, oriented to situation, CN II-XII grossly intact Psychiatric exam: PRESENT: appropriate affect - Affect reflects her current discomfort. ABSENT: agitated, anxious Focused psych exam: ABSENT: delusional, restlessness Results Laboratory Results: 06/27/19 05:02 06/27/19 06:05 06/27/19 06/27/19 06/27/19 05:02 05:02 06:05 WBC 5.3 RBC 3.55 L Hgb 11.2 L Hct 32.3 L MCV 91 MCH 31.7 MCHC 34.7 RDW 14.7 H Plt Count 240 Sodium Cancelled 140.8 Potassium Cancelled 3.5 L Chloride Cancelled 109 H Carbon Dioxide Cancelled 24 Anion Gap Cancelled 8 BUN Cancelled 9 Creatinine Cancelled 0.95 Est GFR ( Amer) Cancelled > 60 Est GFR (Non-Af Amer) Cancelled Glucose Cancelled 109 Calcium Cancelled 9.1 Magnesium Cancelled 2.2 Assessment and Plan - Diagnosis (1) Intractable nausea and vomiting Is this a current diagnosis for this admission?: Yes Plan: Nausea and vomiting have improved. The patient is tolerating oral intake. Continue supportive care (2) UTI (urinary tract infection) Qualifiers: Urinary tract infection type: acute cystitis Hematuria presence: without hematuria Qualified Code(s): N30.00 - Acute cystitis without hematuria Is this a current diagnosis for this admission?: Yes Plan: Preliminary results indicate no growth. Patient was on antibiotics prior to admission. (3) Hypokalemia Is this a current diagnosis for this admission?: Yes Plan: Potassium is slightly better but still marginal. Decrease IV fluids and start oral potassium. (4) Hypertension Qualifiers: Hypertension type: essential hypertension Qualified Code(s): I10 - Essential (primary) hypertension Is this a current diagnosis for this admission?: Yes Plan: The patient systolic blood pressure is 192 this morning. The patient has previously been on amlodipine 5 mg daily and lisinopril hydrochlorothiazide 10/12.5 or 20/12.5 (both are listed) in the past. Hypertension could be causing a lot of her symptoms especially her headache. We will resume these medications. (5) Hyperlipemia Qualifiers: Hyperlipidemia type: pure hypercholesterolemia Qualified Code(s): E78.00 - Pure hypercholesterolemia, unspecified; E78.0 - Pure hypercholesterolemia Is this a current diagnosis for this admission?: Yes Plan: Both serum cholesterol and LDL are elevated. I will start low-dose atorvastatin. (6) Crohn's disease Qualifiers: Gastrointestinal tract location: unspecified location Digestive disease complication type: unspecified complication Qualified Code(s): K50.919 - Crohn's disease, unspecified, with unspecified complications Is this a current diagnosis for this admission?: Yes Plan: Asymptomatic at this time (7) Hypothyroidism Qualifiers: Hypothyroidism type: unspecified Qualified Code(s): E03.9 - Hypothyroidism, unspecified Is this a current diagnosis for this admission?: Yes Plan: I asked the patient and she has never been told that she is hypothyroid. She does note that she may have noticed some fatigue lately with decreased energy. I am going to initiate 25 mcg of levothyroxine at this time. - Plan Summary Summary: Patient is admitted to the medical floor where she will receive routine supportive and symptomatic cares. She will be treated with IV fluid and electrolyte replacement as appropriate. She received Thorazine 25 mg IV every 4 hours as needed for control of nausea and vomiting and she will receive Ativan 1 mg IV every 4 hours as needed for anxiety. She will be treated with IV Rocephin 1 g daily pending urine culture results. Her hypertension will be treated with hydralazine and metoprolol IV as needed to maintain a systolic blood pressure no greater than 160 and a diastolic blood pressure no greater than 100. CBCs, metabolic profiles and magnesium levels to be followed serially as needed. She will use morphine sulfate 2 to 4 mg IV every 2 hours on an as-needed basis for pain control. 06/27/2019-the patient has been on blood pressure medications in the past. I believe labile and uncontrolled hypertension has been causing her headaches and uncontrolled hypertension can cause nausea and vomiting at times. She has been on amlodipine and lisinopril with hydrochlorothiazide in the past. I will resume these now. I am going to check sinus films as she was tender over her maxillary and frontal sinuses. She is on ceftriaxone at this time. Urine culture is no growth at this point. Lipid panel reveals hypercholesterolemia and I have started atorvastatin. Lastly, TSH is elevated and I will initiate low-dose levothyroxine. - Time Time Spent with patient: 15-24 minutes Medications reviewed and adjusted accordingly: Yes Anticipated discharge: Home
[2019-06-27] MEDS: LISINOPRIL 10 MG TABLET PO SCH (09:43)
[2019-06-27] MEDS: MORPHINE SULFATE 10 MG/ML INJ IV PRN ×5 (09:43→21:41)
[2019-06-27] MEDS: AMLODIPINE BESYLATE 5 MG TABLET PO SCH (09:43)
[2019-06-27] MEDS: HYDROCHLOROTHIAZIDE 12.5 MG TABLET PO SCH (09:44)
[2019-06-27] MEDS: POTASSIUM CHLORIDE 10 MEQ TABLET.ER PO SCH (10:38)
[2019-06-27] MEDS: POTASSI CL 20 MEQ/D5-1/2NS 1L 1,000 ML IV PRN (10:39)
--- NOTE | 2019-06-27 13:06 | RADIOLOGY REPORT (SQ) ---
EXAM DESCRIPTION: PARANASAL SINUSES COMPLETED DATE/TIME: 06/27/2019 10:53 am REASON FOR STUDY: Congestion, tenderness over frontal sinuses COMPARISON: None. NUMBER OF VIEWS: Three views TECHNIQUE: Images of the paranasal sinuses acquired. LIMITATIONS: None. FINDINGS: ORBITS: No fracture. No foreign body. SINUSES: No mucosal thickening. No air fluid levels. FACIAL BONES: No fracture. OTHER: No other significant finding. IMPRESSION: NO FOREIGN BODY OR FRACTURE. NO PLAIN RADIOGRAPHIC EVIDENCE FOR SINUS DISEASE. TECHNICAL DOCUMENTATION: JOB ID: [id number] [email or web address]- All Rights Reserved Reading location - IP/workstation name: [email or web address]
[2019-06-27] MEDS: CEFTRIAXONE 1 GM/D5W RTU 1 GM/50 ML RTUPB IV SCH (21:25)
[2019-06-27] MEDS: ATORVASTATIN CALCIUM 10 MG TABLET PO SCH (21:26)
[2019-06-28] MEDS: LORAZEPAM INJ 2 MG/1 ML VIAL IV PRN ×2 (00:55→06:47)
[2019-06-28 05:26] LABS: HEMATOCRIT 30.9 % (36.0-47.0); HEMOGLOBIN 10.8 g/dL (12.0-15.5); MEAN CORPUSCULAR HEMOGLOBIN 31.5 pg (27.0-33.4); MEAN CORPUSCULAR HGB CONC 34.8 g/dL (32.0-36.0); MEAN CORPUSCULAR VOLUME 91 fl (80-97); PLATELET COUNT 216 10^3/uL (150-450); RED BLOOD COUNT 3.42 10^6/uL (3.72-5.28); RED CELL DISTRIBUTION WIDTH 14.5 % (11.5-14.0); WHITE BLOOD COUNT 4.9 10^3/uL (4.0-10.5)
[2019-06-28] MEDS: LEVOTHYROXINE SODIUM 0.025 MG TABLET PO SCH (05:50)
[2019-06-28] MEDS: HEPARIN SOD (PORCINE) 5,000 UNIT/ML 1 ML VIAL SUBCUT SCH ×3 (05:50→21:40)
[2019-06-28] MEDS: POTASSI CL 20 MEQ/D5-1/2NS 1L 1,000 ML IV PRN (06:00)
[2019-06-28] MEDS: ACETAMINOPHEN 325 MG TABLET PO PRN ×2 (06:06→15:44)
[2019-06-28] MEDS ORDERED: CHLORPROMAZINE HCL INJ 25 MG/1 ML AMPULE ONE (06:59)
[2019-06-28] MEDS: CHLORPROMAZINE HCL INJ 25 MG/1 ML AMPULE IV PRN ×3 (07:38→19:53)
[2019-06-28] MEDS: MORPHINE SULFATE 10 MG/ML INJ IV PRN ×6 (08:20→19:52)
[2019-06-28] MEDS: DOCUSATE SODIUM 100 MG/10 ML UDC PO SCH ×2 (10:25→17:16)
[2019-06-28] MEDS: HYDROCHLOROTHIAZIDE 12.5 MG TABLET PO SCH (10:25)
[2019-06-28] MEDS: FLUOXETINE HCL 20 MG CAPSULE PO SCH (10:26)
[2019-06-28] MEDS: POTASSIUM CHLORIDE 10 MEQ TABLET.ER PO SCH ×2 (10:26→17:16)
[2019-06-28] MEDS: AMLODIPINE BESYLATE 5 MG TABLET PO SCH (10:26)
[2019-06-28] MEDS: LISINOPRIL 10 MG TABLET PO SCH (10:26)
[2019-06-28] MEDS: FAMOTIDINE 20 MG TABLET PO SCH ×2 (10:26→21:40)
[2019-06-28] MEDS ORDERED: POTASSIUM CHLORIDE 10 MEQ TABLET.ER PO ONE (12:18)
--- NOTE | 2019-06-28 12:23 | PDOC PROGRESS REPORT ---
Subjective Progress Note for:: 06/28/19 Subjective:: No sinus congestion today. Her headache may have been blood pressure related. Now she is complaining of bilateral pelvic pain. She reports a history of previous surgery. She cannot tell me what the surgery was. She states that she has had infections in the past. She states this was when she was younger. She is not having any discharge or bleeding. Reason For Visit: INTRACTABLE NAUSEA AND VOMITING,URINARY TRACT INF Physical Exam Vital Signs: Temp Pulse Resp BP Pulse Ox 98.1 F 77 18 123/71 96 06/28/19 08:00 06/28/19 08:00 06/28/19 08:00 06/28/19 08:00 06/28/19 08:00 Intake & Output 06/27/19 06/28/19 06/29/19 06:59 06:59 06:59 Intake Total 4193 4128 Balance 4193 4128 Weight 86.7 kg 88.2 kg General appearance: PRESENT: cooperative, mild distress, well-developed Head exam: PRESENT: atraumatic, normocephalic Eye exam: PRESENT: conjunctiva pink. ABSENT: scleral icterus Ear exam: PRESENT: normal external ear exam. ABSENT: bleeding, drainage Mouth exam: PRESENT: moist, tongue midline Respiratory exam: PRESENT: clear to auscultation homer, symmetrical, unlabored. ABSENT: rales, rhonchi, tachypnea, wheezes Cardiovascular exam: PRESENT: RRR, +S1, +S2 GI/Abdominal exam: PRESENT: normal bowel sounds, soft, tenderness - Bilateral inguinal area. No masses appreciated.. ABSENT: distended, guarding, mass, rebound Rectal exam: PRESENT: deferred Extremities exam: ABSENT: joint swelling, pedal edema Musculoskeletal exam: PRESENT: ambulatory, normal inspection. ABSENT: deformity Neurological exam: PRESENT: alert, awake, oriented to person, oriented to place, oriented to time, oriented to situation, CN II-XII grossly intact Psychiatric exam: PRESENT: flat affect. ABSENT: agitated, anxious Focused psych exam: ABSENT: delusional, restlessness Skin exam: PRESENT: dry, normal color, warm. ABSENT: rash Results Laboratory Results: 06/28/19 04:53 06/27/19 06:05 06/28/19 06/28/19 04:53 04:53 WBC 4.9 RBC 3.42 L Hgb 10.8 L Hct 30.9 L MCV 91 MCH 31.5 MCHC 34.8 RDW 14.5 H Plt Count 216 Magnesium 2.1 06/25/19 13:12 Clean Catch Midstream Urine Culture - Final Mixed Urogenital Anuja Impressions: Sinuses X-Ray 06/27/19 00:00 IMPRESSION: NO FOREIGN BODY OR FRACTURE. NO PLAIN RADIOGRAPHIC EVIDENCE FOR SINUS DISEASE. Assessment and Plan - Diagnosis (1) Intractable nausea and vomiting Is this a current diagnosis for this admission?: Yes Plan: No more vomiting and no nausea. Exact etiology still unknown. Possible viral illness or foodborne as she mentions on admission. (2) UTI (urinary tract infection) Qualifiers: Urinary tract infection type: acute cystitis Hematuria presence: without hematuria Qualified Code(s): N30.00 - Acute cystitis without hematuria Is this a current diagnosis for this admission?: Yes Plan: The final urine culture was mixed anuja. Not likely a true cystitis at this point. (3) Hypokalemia Is this a current diagnosis for this admission?: Yes Plan: Resolved with supplementation. Likely from GI losses. (4) Hypertension Qualifiers: Hypertension type: essential hypertension Qualified Code(s): I10 - Essential (primary) hypertension Is this a current diagnosis for this admission?: Yes Plan: The patient has poor compliance with medications. I have added medications to better control her blood pressure. (5) Hyperlipemia Qualifiers: Hyperlipidemia type: pure hypercholesterolemia Qualified Code(s): E78.00 - Pure hypercholesterolemia, unspecified; E78.0 - Pure hypercholesterolemia Is this a current diagnosis for this admission?: Yes Plan: Statin therapy is been ordered (6) Crohn's disease Qualifiers: Gastrointestinal tract location: unspecified location Digestive disease complication type: unspecified complication Qualified Code(s): K50.919 - Crohn's disease, unspecified, with unspecified complications Is this a current diagnosis for this admission?: Yes Plan: Asymptomatic at this time (7) Hypothyroidism Qualifiers: Hypothyroidism type: unspecified Qualified Code(s): E03.9 - Hypothyroidism, unspecified Is this a current diagnosis for this admission?: Yes Plan: Low-dose levothyroxine started (8) Pelvic pain Is this a current diagnosis for this admission?: Yes Plan: I am not sure of the etiology of her pain. She states that she had trouble in her teenage years. She thinks they did surgery but cannot remember. I will order a pelvic ultrasound. It is most likely that this will need to be addressed as an outpatient. - Plan Summary Summary: Patient is admitted to the medical floor where she will receive routine supportive and symptomatic cares. She will be treated with IV fluid and electrolyte replacement as appropriate. She received Thorazine 25 mg IV every 4 hours as needed for control of nausea and vomiting and she will receive Ativan 1 mg IV every 4 hours as needed for anxiety. She will be treated with IV Rocephin 1 g daily pending urine culture results. Her hypertension will be treated with hydralazine and metoprolol IV as needed to maintain a systolic blood pressure no greater than 160 and a diastolic blood pressure no greater than 100. CBCs, metabolic profiles and magnesium levels to be followed serially as needed. She will use morphine sulfate 2 to 4 mg IV every 2 hours on an as-needed basis for pain control. 06/27/2019-the patient has been on blood pressure medications in the past. I believe labile and uncontrolled hypertension has been causing her headaches and uncontrolled hypertension can cause nausea and vomiting at times. She has been on amlodipine and lisinopril with hydrochlorothiazide in the past. I will resume these now. I am going to check sinus films as she was tender over her maxillary and frontal sinuses. She is on ceftriaxone at this time. Urine culture is no growth at this point. Lipid panel reveals hypercholesterolemia and I have started atorvastatin. Lastly, TSH is elevated and I will initiate low-dose levothyroxine. - Time Time Spent with patient: 15-24 minutes Medications reviewed and adjusted accordingly: Yes Anticipated discharge: Home Within: within 24 hours
[2019-06-28] MEDS: ATORVASTATIN CALCIUM 10 MG TABLET PO SCH (21:40)
[2019-06-28] MEDS: TRAZODONE HCL 50 MG TABLET PO PRN (21:40)
[2019-06-28] MEDS: CEFTRIAXONE 1 GM/D5W RTU 1 GM/50 ML RTUPB IV SCH (21:41)
[2019-06-29] MEDS: MORPHINE SULFATE 10 MG/ML INJ IV PRN ×4 (00:34→10:27)
[2019-06-29] MEDS: CHLORPROMAZINE HCL INJ 25 MG/1 ML AMPULE IV PRN ×2 (00:35→08:19)
[2019-06-29] MEDS: LEVOTHYROXINE SODIUM 0.025 MG TABLET PO SCH (05:53)
[2019-06-29] MEDS: HEPARIN SOD (PORCINE) 5,000 UNIT/ML 1 ML VIAL SUBCUT SCH ×2 (05:53→13:08)
--- NOTE | 2019-06-29 08:03 | RADIOLOGY REPORT (SQ) ---
EXAM DESCRIPTION: U/S NON OB PEL TV W/DOPPLER COMPLETED DATE/TIME: 06/29/2019 6:47 am REASON FOR STUDY: Pain in both right and left lower quadrants. No d COMPARISON: None. TECHNIQUE: Dynamic and static grayscale images acquired of the pelvis via transabdominal and transva ginal approach and recorded on PACS. Additional selected color Doppler and spectral images recorded. LIMITATIONS: None. FINDINGS: UTERUS: Contour normal. No mass. ENDOMETRIAL STRIPE: No focal or generalized thickening. No masses. CERVIX: No nabothian cysts. RIGHT OVARY AND DOPPLER: Normal size. No worrisome masses. Normal arterial vascular flow without evid ence for torsion. There is a simple less than 2 cm cyst. LEFT OVARY AND DOPPLER: The left ovary is not visualized. FREE FLUID: None noted. OTHER: No other significant finding. MEASUREMENTS: UTERUS: 8.9 x 5.8 x 6.4 cm. ENDOMETRIAL STRIPE: 2.2 mm. RIGHT OVARY: 3.2 x 3.0 x 3.2 cm. LEFT OVARY: Not visualized. IMPRESSION: Left ovary is not visualized due to overlying bowel gas. Small right ovarian cyst less than 2 cm. No other significant findings. TECHNICAL DOCUMENTATION: JOB ID: [id number] [employer]- All Rights Reserved Rev Reading location - IP/workstation name: [email or web address]
[2019-06-29 09:22] LABS: ANION GAP 6 (5-19); BLOOD UREA NITROGEN 9 mg/dL (7-20); CARBON DIOXIDE 26 mmol/L (22-30); CHLORIDE 108 mmol/L (98-107); GLUCOSE 96 mg/dL (75-110); POTASSIUM 4.3 mmol/L (3.6-5.0)
[2019-06-29] MEDS: FLUOXETINE HCL 20 MG CAPSULE PO SCH (10:26)
[2019-06-29] MEDS: HYDROCHLOROTHIAZIDE 12.5 MG TABLET PO SCH (10:26)
[2019-06-29] MEDS: FAMOTIDINE 20 MG TABLET PO SCH (10:27)
[2019-06-29] MEDS: LISINOPRIL 10 MG TABLET PO SCH (10:27)
[2019-06-29] MEDS: POTASSIUM CHLORIDE 10 MEQ TABLET.ER PO SCH (10:27)
[2019-06-29] MEDS: AMLODIPINE BESYLATE 5 MG TABLET PO SCH (10:27)
[2019-06-29] MEDS: DOCUSATE SODIUM 100 MG/10 ML UDC PO SCH (10:27)
[2019-06-29 13:16] VITALS: BP 135/80
--- NOTE | 2019-07-01 18:23 | PDOC DISCHARGE SUMMARY ---
Impression - Admit/DC Date/PCP Admission Date/Primary Care Provider: 06/25/19 22:05 Discharge Date: 06/29/19 - Discharge Diagnosis (1) Acute UTI Is this a current diagnosis for this admission?: No (2) Crohn's disease in remission Is this a current diagnosis for this admission?: Yes (3) Hyperlipemia Is this a current diagnosis for this admission?: Yes (4) Hypertension Is this a current diagnosis for this admission?: Yes (5) Hypokalemia Is this a current diagnosis for this admission?: Yes (6) Hypothyroidism Is this a current diagnosis for this admission?: Yes (7) Intractable nausea and vomiting Is this a current diagnosis for this admission?: Yes (8) Pelvic pain Is this a current diagnosis for this admission?: Yes - Additional Information Resuscitation Status: Full Code Discharge Diet: As Tolerated, Cardiac Discharge Activity: Activity As Tolerated, Balance Activity w/Rest Referrals: [facility] [Outside] - 07/01/19 3:30 pm (PLEASE BRING PHOTO ID AND SOCIAL SECURITY CARD TO FIRST APPT.) Prescriptions: Hydrochlorothiazide [Hydrodiuril 12.5 mg Tablet] 12.5 mg PO DAILY #30 tablet Atorvastatin Calcium [Lipitor 10 mg Tablet] 10 mg PO QHS #30 tablet Amlodipine Besylate [Norvasc 5 mg Tablet] 5 mg PO DAILY #30 tablet Promethazine HCl [Phenergan 25 mg Supp.rect] 1 supp AL Q6H #3 supp.rect Promethazine HCl [Phenergan 25 mg Tablet] 25 mg PO Q6HP PRN #12 tablet PRN Reason: Lisinopril [Prinivil 10 mg Tablet] 10 mg PO DAILY #30 tablet Levothyroxine Sodium [Synthroid 0.025 mg Tablet] 0.025 mg PO Q6AM #30 tablet Home Medications: Ondansetron [Zofran Odt 4 mg Tablet] 1 tab PO Q6H #15 tab.rapdis 06/23/19 Fluoxetine HCl [Prozac 20 mg Capsule] 60 mg PO DAILY 06/26/19 Trazodone HCl 100 mg PO HSP PRN 06/26/19 Acetaminophen [Tylenol 325 mg Tablet] 650 mg PO Q4HP PRN tablet 06/29/19 Amlodipine Besylate [Norvasc 5 mg Tablet] 5 mg PO DAILY #30 tablet 01/27/20 Atorvastatin Calcium [Lipitor 10 mg Tablet] 10 mg PO QHS #30 tablet 06/29/19 Hydrochlorothiazide [Hydrodiuril 12.5 mg Tablet] 12.5 mg PO DAILY #30 tablet 06/29/19 Levothyroxine Sodium [Synthroid 0.025 mg Tablet] 0.025 mg PO Q6AM #30 tablet 06/29/19 Lisinopril [Prinivil 10 mg Tablet] 10 mg PO DAILY #30 tablet 06/29/19 Promethazine HCl [Phenergan 25 mg Supp.rect] 1 supp AL Q6H #3 supp.rect 06/29/19 Promethazine HCl [Phenergan 25 mg Tablet] 25 mg PO Q6HP PRN #12 tablet 06/29/19 History of Present Illiness History of Present Illness: Per H&P by Dr. Packer: JOON ECKERT is a 49 year old female who represented to the emergency room for the third time in 3 days with the continued complaint of nausea and vomiting. She admits a 4-day history of continuous nausea and frequent episodes of vomiting associated with suprapubic pain. She admits she has been treated for a urinary tract infection that was diagnosed in the emergency room but has been unable to keep the antibiotic prescribed on her stomach. Her nausea and vomiting are made worse by oral ingestion of food or fluids. She has been unable to keep down solids and has kept down only minimal amounts of oral fluids. She further admits that her symp toms began after eating a rewarmed [employer] dinner. In the initial phase of her illness she also had diarrhea and abdominal cramping which subsequently resolved only to be followed by her current symptoms of nausea and vomiting. She admits to the accompanying symptoms of subjective fever with chills, fatigue, malaise and ague. She denies other associated or accompanying signs and symptoms. She denies prior similar episodes. She denies identification of any additional aggravating or ameliorating factors for her nausea and vomiting. In the emergency room she was found to be mildly hypokalemic and her urinary back infection previously diagnosed was reconfirmed. She was also noted to be hypertensive with a blood pressure of 189/100. She was subsequently admitted to the hospital for further evaluation and treatment. Hospital Course Hospital Course: The patient was admitted to the medical floor and monitored on continuous cardiac telemetry. She was provided IV fluids and electrolyte replacements as appropriate. She was placed on IV Thorazine every 4 hours as needed for control of her nausea and vomiting. She responded well and at time of admission was tolerating 100% of a regular diet. Initially, the patient was thought to have a urinary tract infection and was empirically placed on IV Rocephin.However, her urine culture resulted in mixed urogenital anuja and antibiotics were discontinued. She had no complaints of dysuria, urinary urgency, frequency, or hematuria. She did report bilateral pelvic pain. Transvaginal ultrasound demonstrated bowel gas; preventing visualization of the left ovary. Small right ovarian cyst was noted. There were no other significant findings. She had no vaginal discharge or complaints. The patient's blood pressure became controlled with initiation of lisinopril/hydrochlorothiazide, and amlodipine. Lipid panel did reveal elevated LDL and total cholesterol; therefore she was placed on low-dose statin therapy. TSH is elevated and therefore she was placed on low-dose levothyroxine. At time of discharge the patient continued to have vague/nonspecific abdominal discomfort. Her nausea and vomiting was well controlled with as needed medications with her last episode of emesis being greater than 24 hours previously. She was tolerating 100% of all meals. She was discharged home in stable condition. She was advised to follow-up with her primary care provider within 1 week and to return to the emergency department as needed for concerning symptoms. Physical Exam Vital Signs: Temp Pulse Resp BP Pulse Ox 97.8 F 69 17 135/80 H 97 06/29/19 13:15 06/29/19 13:15 06/29/19 13:15 06/29/19 13:15 06/29/19 13:15 General appearance: PRESENT: no acute distress, cooperative, obese, well- developed, well-nourished Head exam: PRESENT: atraumatic, normocephalic Eye exam: PRESENT: conjunctiva pink, EOMI, PERRLA. ABSENT: scleral icterus Ear exam: PRESENT: normal external ear exam Mouth exam: PRESENT: moist, tongue midline Neck exam: ABSENT: carotid bruit, JVD, lymphadenopathy, thyromegaly Respiratory exam: PRESENT: clear to auscultation homer. ABSENT: rales, rhonchi, wheezes Cardiovascular exam: PRESENT: RRR. ABSENT: diastolic murmur, rubs, systolic murmur Pulses: PRESENT: normal dorsalis pedis pul Vascular exam: PRESENT: normal capillary refill GI/Abdominal exam: PRESENT: normal bowel sounds, soft, tenderness - Vague/nonspecific, other - Tolerating 100% of meals. ABSENT: distended, guarding, mass, organolmegaly, rebound Rectal exam: PRESENT: deferred Extremities exam: PRESENT: full ROM. ABSENT: calf tenderness, clubbing, pedal edema Musculoskeletal exam: PRESENT: ambulatory Neurological exam: PRESENT: alert, awake, oriented to person, oriented to place, oriented to time, oriented to situation, CN II-XII grossly intact. ABSENT: motor sensory deficit Psychiatric exam: PRESENT: appropriate affect, normal mood. ABSENT: homicidal ideation, suicidal ideation Skin exam: PRESENT: dry, intact, warm. ABSENT: cyanosis, rash Results Laboratory Results: WBC 4.9 10^3/uL (4.0-10.5) 06/28/19 04:53 RBC 3.42 10^6/uL (3.72-5.28) L 06/28/19 04:53 Hgb 10.8 g/dL (12.0-15.5) L 06/28/19 04:53 Hct 30.9 % (36.0-47.0) L 06/28/19 04:53 MCV 91 fl (80-97) 06/28/19 04:53 MCH 31.5 pg (27.0-33.4) 06/28/19 04:53 MCHC 34.8 g/dL (32.0-36.0) 06/28/19 04:53 RDW 14.5 % (11.5-14.0) H 06/28/19 04:53 Plt Count 216 10^3/uL (150-450) 06/28/19 04:53 Lymph % (Auto) 27.4 % (13-45) 06/25/19 14:17 [place] % (Auto) 7.7 % (3-13) 06/25/19 14:17 Eos % (Auto) 0.2 % (0-6) 06/25/19 14:17 Baso % (Auto) 0.6 % (0-2) 06/25/19 14:17 Absolute Neuts (auto) 5.0 10^3/uL (1.7-8.2) 06/25/19 14:17 Absolute Lymphs (auto) 2.1 10^3/uL (0.5-4.7) 06/25/19 14:17 Absolute Monos (auto) 0.6 10^3/uL (0.1-1.4) 06/25/19 14:17 Absolute Eos (auto) 0.0 10^3/uL (0.0-0.6) 06/25/19 14:17 Absolute Basos (auto) 0.0 10^3/uL (0.0-0.2) 06/25/19 14:17 Seg Neutrophils % 64.1 % (42-78) 06/25/19 14:17 Sodium 139.7 mmol/L (137-145) 06/29/19 08:22 Potassium 4.3 mmol/L (3.6-5.0) 06/29/19 08:22 Chloride 108 mmol/L (98-107) H 06/29/19 08:22 Carbon Dioxide 26 mmol/L (22-30) 06/29/19 08:22 Anion Gap 6 (5-19) 06/29/19 08:22 BUN 9 mg/dL (7-20) 06/29/19 08:22 Creatinine 0.93 mg/dL (0.52-1.25) 06/29/19 08:22 Est GFR ( Amer) > 60 (>60) 06/29/19 08:22 Est GFR (Non-Af Amer) Cancelled 06/27/19 05:02 Est GFR (MDRD) Non-Af > 60 (>60) 06/29/19 08:22 Glucose 96 mg/dL (75-110) 06/29/19 08:22 Calcium 9.0 mg/dL (8.4-10.2) 06/29/19 08:22 Magnesium 2.1 mg/dL (1.6-2.3) 06/28/19 04:53 Total Bilirubin 0.8 mg/dL (0.2-1.3) 06/25/19 14:17 Direct Bilirubin 0.3 mg/dL (0.0-0.4) 06/25/19 14:17 Neonat Total Bilirubin Not Reportable 06/25/19 14:17 Neonat Direct Bilirubin Not Reportable 06/25/19 14:17 Neonat Indirect Bili Not Reportable 06/25/19 14:17 AST 22 U/L (14-36) 06/25/19 14:17 ALT 16 U/L (<35) 06/25/19 14:17 Alkaline Phosphatase 109 U/L (38-126) 06/25/19 14:17 Total Protein 8.1 g/dL (6.3-8.2) 06/25/19 14:17 Albumin 4.9 g/dL (3.5-5.0) 06/25/19 14:17 Triglycerides 107 mg/dL (<150) 06/26/19 05:15 Cholesterol 206.96 mg/dL (0-200) H 06/26/19 05:15 LDL Cholesterol Direct 119 mg/dL (<100) H 06/26/19 05:15 VLDL Cholesterol 21.0 mg/dL (10-31) 06/26/19 05:15 HDL Cholesterol 46 mg/dL (>40) 06/26/19 05:15 Lipase 125.1 U/L (23-300) 06/25/19 14:17 EGFR Cancelled 06/27/19 05:02 TSH 5.62 uIU/mL (0.47-4.68) H 06/26/19 05:15 Urine Color MARCI 06/25/19 13:12 Urine Appearance CLOUDY 06/25/19 13:12 Urine pH 6.0 (5.0-9.0) 06/25/19 13:12 Ur Specific [place] 1.030 06/25/19 13:12 Urine Protein >=500 mg/dL (NEGATIVE) H 06/25/19 13:12 Urine Glucose (UA) NEGATIVE mg/dL (NEGATIVE) 06/25/19 13:12 Urine Ketones 20 mg/dL (NEGATIVE) H 06/25/19 13:12 Urine Blood SMALL (NEGATIVE) H 06/25/19 13:12 Urine Nitrite NEGATIVE (NEGATIVE) 06/25/19 13:12 Urine Bilirubin NEGATIVE (NEGATIVE) 06/25/19 13:12 Urine Urobilinogen 2.0 mg/dL (<2.0) H 06/25/19 13:12 Ur Leukocyte Esterase MODERATE (NEGATIVE) H 06/25/19 13:12 Urine WBC (Auto) >182 /HPF 06/25/19 13:12 Urine RBC (Auto) 170 /HPF 06/25/19 13:12 Urine Bacteria (Auto) 1+ /HPF 06/25/19 13:12 Squamous Epi Cells Auto 52 /HPF 06/25/19 13:12 Calcium Oxalate Cr Auto FEW /HPF 06/25/19 13:12 Urine Mucus (Auto) MANY /LPF 06/25/19 13:12 Urine Ascorbic Acid NEGATIVE (NEGATIVE) 06/25/19 13:12 Urine Opiates Screen UNCONFIRMED POSITIVE 06/25/19 13:12 Urine Methadone Screen NEGATIVE 06/25/19 13:12 Ur Barbiturates Screen NEGATIVE 06/25/19 13:12 Ur Phencyclidine Scrn NEGATIVE 06/25/19 13:12 Ur Amphetamines Screen NEGATIVE 06/25/19 13:12 U Benzodiazepines Scrn UNCONFIRMED POSITIVE 06/25/19 13:12 Urine Cocaine Screen NEGATIVE 06/25/19 13:12 U Marijuana (THC) Screen UNCONFIRMED POSITIVE 06/25/19 13:12 Impressions: Sinuses X-Ray 06/27/19 00:00 IMPRESSION: NO FOREIGN BODY OR FRACTURE. NO PLAIN RADIOGRAPHIC EVIDENCE FOR SINUS DISEASE. Transvaginal US 06/28/19 00:00 IMPRESSION: Left ovary is not visualized due to overlying bowel gas. Small right ovarian cyst less than 2 cm. No other significant findings. Plan Plan of Treatment: The patient was discharged home in stable condition. She was instructed to follow-up with her primary care provider within 1 week. She was instructed to drink plenty of fluids and to eat a bland diet; advancing slowly as tolerated. She was advised to take her other medications as prescribed. -She was discharged home with prescriptions for lisinopril/hydrochlorothiazide, atorvastatin, amlodipine, levothyroxine, Phenergan tablets and suppositories. She was advised to return to the emergency department as needed for concerning symptoms. Time Spent: Greater than 30 Minutes Stroke Is this a Stroke Patient?: No Acute Heart Failure - Is this a Heart Failure Patient?: No
== END 2019-06-29 15:16 | disposition home or self-care (01) | DRG 690 ==
LOC: ER 12:31 → EH 22:05 → 5 23:50
PROVIDERS: ADMIT Emergency Medicine; ATTEND Emergency Medicine
DX: N30.00 Acute cystitis without hematuria (principal); K50.90 Crohn's disease, unspecified, without complications; E03.9 Hypothyroidism, unspecified; I10 Essential (primary) hypertension; E87.6 Hypokalemia; R11.2 Nausea with vomiting, unspecified; R10.2 Pelvic and perineal pain; N83.201 Unspecified ovarian cyst, right side; E66.9 Obesity, unspecified; E11.9 Type 2 diabetes mellitus without complications; F32.9 Major depressive disorder, single episode, unspecified; E78.00 Pure hypercholesterolemia, unspecified; Z79.82 Long term (current) use of aspirin; Z88.0 Allergy status to penicillin; Z88.6 Allergy status to analgesic agent; Z91.041 Radiographic dye allergy status; Z83.3 Family history of diabetes mellitus; Z82.49 Family history of ischemic heart disease and other diseases of the circulatory system; Z23 Encounter for immunization
CPT/HCPCS: 36415; 70220; 76830; 80048; 80053; 80061; 80307; 81001; 83690; 83735; 84443; 85025; 85027; 87086; 90686; 93976; 96361; 96372; 96374; 96375; 99284; J0360; J0500; J0696; J1630; J1644; J2060; J2270; J2405; J2550; J2765; J3230; J3480; J3490; J7030

== ENCOUNTER 2019-07-01 17:50 | Emergency (ER) | payer SELFPAY ==
[2019-07-01] MEDS ORDERED: PROMETHAZINE HCL 25 MG TABLET PO ONE (18:11)
[2019-07-01] MEDS ORDERED: NORMAL SALINE 1000 ML 1,000 ML IV ONE (18:11)
--- NOTE | 2019-07-01 18:11 | ER Document Report ---
ED Medical Screen (RME) - General Chief Complaint: Weakness Stated Complaint: ABDOMINAL ISSUES,WEAKNESS Time Seen by Provider: 07/01/19 18:08 Mode of Arrival: Wheelchair Information source: Patient, Relative Notes: 49-year-old female presented to ED for complaint of abdominal pain disorientation and weakness to the right leg since Saturday. She states she was admitted to the hospital for abdominal pain and got discharged on Saturday. She is states she has not had a bowel movement in at least a week and a half. She states she has a history of Crohn's and is been off of her medicines for a long time and then the symptoms just started back up. She states she was discharged home on Saturday with no medications no pain medicines no nausea medicine. She states she went to the [facility] right before coming here and they sent her into the ER for anemia disorientation and weakness to the right leg. I have greeted and performed a rapid initial assessment of this patient. A comprehensive ED assessment and evaluation of the patient, analysis of test results and completion of medical decision making process will be conducted by an additional ED providers. TRAVEL OUTSIDE OF THE [place] IN LAST 30 DAYS: No - Related Data Allergies/Adverse Reactions: Iodinated Contrast Media Allergy (Verified 06/02/19 11:50) Penicillins Allergy (Verified 06/02/19 11:50) tramadol Allergy (Verified 06/02/19 11:50) Past Medical History - Past Medical History Cardiac Medical History: Reports: Hx Hypercholesterolemia, Hx Hypertension Denies: Hx Coronary Artery Disease, Hx Heart Attack Pulmonary Medical History: Denies: Hx Asthma, Hx COPD Neurological Medical History: Denies: Hx Seizures Endocrine Medical History: Reports: Hx Diabetes Mellitus Type 2. Denies: Hx D iabetes Mellitus Type 1, Hx Hyperthyroidism, Hx Hypothyroidism Renal/ Medical History: Denies: Hx Peritoneal Dialysis GI Medical History: Reports: Hx Crohn's Disease. Denies: Hx Cirrhosis, Hx Gastroesophageal Reflux Disease, Hx Hepatitis, Hx Hiatal Hernia, Hx Ulcerative Colitis Musculoskeltal Medical History: Denies Hx Arthritis, Denies Hx Gout Skin Medical History: Denies Hx Eczema, Denies Hx Psoriasis Psychiatric Medical History: Reports: Hx Depression Infectious Medical History: Denies: Hx Hepatitis Past Surgical History: Denies: Hx Pacemaker - Immunizations Hx Diphtheria, Pertussis, Tetanus Vaccination: Yes Physical Exam - Vital signs Vitals: Temp Pulse Resp BP Pulse Ox 98.7 F 77 18 154/86 H 97 07/01/19 18:00 07/01/19 18:00 07/01/19 18:00 07/01/19 18:00 07/01/19 18:00 Course - Vital Signs Vital signs: Temp Pulse Resp BP Pulse Ox 98.7 F 77 18 154/86 H 97 07/01/19 18:00 07/01/19 18:00 07/01/19 18:00 07/01/19 18:00 07/01/19 18:00
[2019-07-01 19:59] LABS: APPEARANCE,URINE CLOUDY; BILIRUBIN,URINE NEGATIVE (NEGATIVE); COLOR,URINE YELLOW; GLUCOSE, URINE NEGATIVE (NEGATIVE); KETONES,URINE NEGATIVE (NEGATIVE); LEUKOCYTE ESTERASE,URINE LARGE (NEGATIVE); NITRITE,URINE NEGATIVE (NEGATIVE); PROTEIN,URINE NEGATIVE (NEGATIVE); URINE SPECIFIC GRAVITY 1.012; UROBILINOGEN,URINE NEGATIVE mg/dL (<2.0)
[2019-07-01 21:53] LABS: ABSOLUTE EOSINOPHILS # (AUTO) 0.1 10^3/uL (0.0-0.6); ABSOLUTE LYMPHOCYTES (AUTO) 1.3 10^3/uL (0.5-4.7); ABSOLUTE MONOCYTES (AUTO) 0.5 10^3/uL (0.1-1.4); ABSOLUTE NEUT (AUTO) 3.4 10^3/uL (1.7-8.2); BASOPHILS % (AUTO) 0.9 % (0-2); EOSINOPHILS % (AUTO) 1.8 % (0-6); HEMATOCRIT 36.5 % (36.0-47.0); HEMOGLOBIN 12.7 g/dL (12.0-15.5); LYMPHOCYTES % (AUTO) 23.5 % (13-45); MEAN CORPUSCULAR HEMOGLOBIN 31.5 pg (27.0-33.4); MEAN CORPUSCULAR HGB CONC 34.6 g/dL (32.0-36.0); MEAN CORPUSCULAR VOLUME 91 fl (80-97); MONOCYTES % (AUTO) 10.1 % (3-13); PLATELET COUNT 272 10^3/uL (150-450); RED BLOOD COUNT 4.01 10^6/uL (3.72-5.28); RED CELL DISTRIBUTION WIDTH 14.6 % (11.5-14.0); SEGMENTED NEUTROPHILS % (AUTO) 63.7 % (42-78); TOTAL CELLS COUNTED % (AUTO) 100 %; WHITE BLOOD COUNT 5.3 10^3/uL (4.0-10.5)
[2019-07-01] MEDS ORDERED: BUTALB/ACETAMINOPHEN/CAFFEINE 1 TAB EACH PO ONE (22:46)
--- NOTE | 2019-07-01 22:46 | ER Document Report ---
ED General - General Chief Complaint: Weakness Stated Complaint: ABDOMINAL ISSUES,WEAKNESS Time Seen by Provider: 07/01/19 18:08 Primary Care Provider: [facility] [Primary Care Provider] - Follow up as needed Mode of Arrival: Wheelchair Information source: Patient TRAVEL OUTSIDE OF THE [place] IN LAST 30 DAYS: No - HPI Onset: Other - over the last several days Onset/Duration: Gradual Quality of pain: Achy, Pressure Severity: Moderate Pain Level: 3 Associated symptoms: Nausea, Vomiting, Weakness Exacerbated by: Denies Relieved by: Other - Promethazine Similar symptoms previously: Yes - patient has had nausea and vomiting for months. Patient says weakness new Notes: 49 year old female with a history of DM, HTN, HLD, Crohns,, Depression, Anxiety and most recently fairly constant nausea and vomiting here for nausea, vomiting, headache, and generalized weakness. The patient was recently admitted here for intractable nausea and vomiting and a UTI. Patient's urine cultures have not grown out any true UTI organisms however. Patient says the promethazine she has been given helps with her nausea/vomiting. The patient was apparently at her PCPs and told to come to the ER for evaluation of a TIA since she was feeling weak and slightly confused. The patient is not confused at all in the ER now and she is asking for pain medication for her headache. The patient has had headaches before but this one seems worse. The headache came on gradually. - Related Data Allergies/Adverse Reactions: Iodinated Contrast Media Allergy (Verified 06/02/19 11:50) Penicillins Allergy (Verified 06/02/19 11:50) tramadol Allergy (Verified 06/02/19 11:50) Past Medical History - General Information source: Patient, Relative - Social History Smoking Status: Never Smoker Chew tobacco use (# tins/day): No Frequency of alcohol use: None Drug Abuse: None Family History: CAD, DM, Hypertension. denies: Malignancy Patient has suicidal ideation: No Patient has homicidal ideation: No - Past Medical History Cardiac Medical History: Reports: Hx Hypercholesterolemia, Hx Hypertension Denies: Hx Coronary Artery Disease, Hx Heart Attack Pulmonary Medical History: Denies: Hx Asthma, Hx COPD Neurological Medical History: Denies: Hx Seizures Endocrine Medical History: Reports: Hx Diabetes Mellitus Type 2. Denies: Hx Diabetes Mellitus Type 1, Hx Hyperthyroidism, Hx Hypothyroidism Renal/ Medical History: Denies: Hx Peritoneal Dialysis GI Medical History: Reports: Hx Crohn's Disease. Denies: Hx Cirrhosis, Hx Gastroesophageal Reflux Disease, Hx Hepatitis, Hx Hiatal Hernia, Hx Ulcerative Colitis Musculoskeletal Medical History: Denies Hx Arthritis, Denies Hx Gout Skin Medical History: Denies Hx Eczema, Denies Hx Psoriasis Psychiatric Medical History: Reports: Hx Depression Infectious Medical History: Denies: Hx Hepatitis Past Surgical History: Denies: Hx Pacemaker - Immunizations Hx Diphtheria, Pertussis, Tetanus Vaccination: Yes Review of Systems - Review of Systems Constitutional: Weakness EENT: No symptoms reported Cardiovascular: No symptoms reported Respiratory: No symptoms reported Gastrointestinal: Nausea, Vomiting Genitourinary: No symptoms reported Female Genitourinary: No symptoms reported Musculoskeletal: No symptoms reported Skin: No symptoms reported Hematologic/Lymphatic: No symptoms reported Neurological/Psychological: Weakness, Headaches Physical Exam - Vital signs Vitals: Temp Pulse Resp BP Pulse Ox 98.7 F 77 18 154/86 H 97 07/01/19 18:00 07/01/19 18:00 07/01/19 18:00 07/01/19 18:00 07/01/19 18:00 - Notes Notes: Reviewed vital signs and nursing note as charted by RN. CONSTITUTIONAL: Well-appearing, well-nourished; attentive, alert and interactive with good eye contact; acting appropriately for age HEAD: Normocephalic; atraumatic; No swelling EYES: PERRL; Conjunctivae clear, no drainage; EOMI ENT: External ears without lesions; External auditory canal is patent; TMs without erythema, landmarks clear and well visualized; no rhinorrhea; Pharynx without erythema or lesions, no tonsillar hypertrophy, airway patent, mucous membranes pink and moist NECK: Supple, no cervical lymphadenopathy, no masses CARD: Regular rate and rhythm; no murmurs, no rubs, no gallops, capillary refill < 2 seconds, symmetric pulses RESP: Respiratory rate and effort are normal. There is normal chest excursion. No respiratory distress, no retractions, no stridor, no nasal flaring, no accessory muscle use. The lungs are clear to auscultation bilaterally, no wheezing, no rales, no rhonchi. ABD/GI: Normal bowel sounds; non-distended; soft, non-tender, no rebound, no guarding, no palpable organomegaly EXT: Normal ROM in all joints; non-tender to palpation; no effusions, no edema SKIN: Normal color for age and race; warm; dry; good turgor; no acute lesions noted NEURO: No facial asymmetry; Moves all extremities equally; Motor and sensory function intact although patient has a very effort dependent strength exam. Patient also take an extremely long time to follow commands. Patient becomes emotional during simple neuro testing. Course - Re-evaluation Re-evalutation: 07/02/19 01:32 The patient is here for chronic nausea and vomiting, mild abdominal pains which are also chronic, generalized weakness and a transient confusional state. The patient apparently saw her PCP yesterday and he told her to go to the ER for evaluation of a possible TIA. On my exam, the patient is emotional and has very effort dependent weakness throughout and no true focal neurological deficits. The patient had labs drawn prior to me seeing her which were unremarkable. The patient had ahead CT ordered by me and apparently the patient fell out of her hospital bed prior to going to CT. The patient sustained no serious injuries from her fall. Assuming the patient's head CT is read as normal, which I think that it will be, the patient is safe for outpatient follow up. The patient's UA has looked possibly infected for several days now but nothing has grown out so likely contaminated. Will reculture urine again today however. The patient is exhibiting malingering behavior. 07/02/19 01:43 - Vital Signs Vital signs: Temp Pulse Resp BP Pulse Ox 98.5 F 108 H 14 156/98 H 95 07/02/19 01:34 07/02/19 01:34 07/02/19 01:34 07/02/19 01:34 07/02/19 01:34 - Laboratory Result Diagrams: 07/01/19 21:41 07/01/19 23:46 Laboratory results interpreted by me: 07/01/19 07/01/19 07/01/19 19:00 21:41 23:46 RDW 14.6 H Carbon Dioxide 32 H Est GFR (MDRD) Non-Af 56 L Glucose 115 H AST 40 H Ur Leukocyte Esterase LARGE H Urine Ascorbic Acid 40 H Discharge - Discharge Clinical Impression: Weakness Nausea & vomiting Qualifiers: Vomiting type: unspecified Vomiting Intractability: unspecified Qualified Code(s): R11.2 - Nausea with vomiting, unspecified Headache Qualifiers: Headache type: unspecified Headache chronicity pattern: acute headache Intractability: not intractable Qualified Code(s): R51 - Headache Condition: Stable Disposition: HOME, SELF-CARE Instructions: Headache ([facility]), Nausea or Vomiting, Nonspecific ([facility]), Weakness ([facility]) Additional Instructions: Use your previously prescribed Promethazine for headaches. Use the prescribed Fiorinal for headaches. Follow up with a primary care doctor and with a GI Doctor. Finish your previously prescribed antibiotics. Prescriptions: Butalb/Acetaminophen/Caffeine [Fioricet (50-325-40 mg) Tablet] 1 tab PO Q8H #20 tab Referrals: [facility] [Primary Care Provider] - Follow up as needed
[2019-07-02 00:10] LABS: ALBUMIN 3.8 g/dL (3.5-5.0); ALKALINE PHOSPHATASE 79 U/L (38-126); ANION GAP 6 (5-19); ASPARTATE AMINO TRANSFERASE 40 U/L (14-36); BILIRUBIN,DIRECT 0.3 mg/dL (0.0-0.4); BILIRUBIN,TOTAL 0.3 mg/dL (0.2-1.3); BLOOD UREA NITROGEN 10 mg/dL (7-20); CALCIUM 9.4 mg/dL (8.4-10.2); CARBON DIOXIDE 32 mmol/L (22-30); CHLORIDE 101 mmol/L (98-107); GLUCOSE 115 mg/dL (75-110); POTASSIUM 3.9 mmol/L (3.6-5.0)
--- NOTE | 2019-07-02 02:00 | RADIOLOGY REPORT (SQ) ---
EXAM DESCRIPTION: Noncontrast CT head CLINICAL HISTORY: 49 years Female eval for cause of generalized weakness TECHNIQUE: Noncontrast CT head. All CT scans at this facility use dose modulation, iterative reconstruction, and/or weight based dosing when appropriate to reduce radiation dose to as low as reasonably achievable. COMPARISON: None. FINDINGS: Nguyễn matter, white matter, ventricles, and cisterns are within normal limits. No acute hemorrhage or mass effect. Visualized portions of paranasal sinuses and mastoids are clear. Visualized portions of the calvarium are within normal limits. IMPRESSION: 1. No acute intracranial findings. If there is persistent clinical concern for acute intracranial process, MRI brain could be considered as a more sensitive evaluation.
[2019-07-02 02:31] LABS: URINE AMPHETAMINES SCREEN NEGATIVE; URINE BARBITURATES SCREEN NEGATIVE; URINE BENZODIAZEPINES SCREEN NEGATIVE; URINE COCAINE SCREEN NEGATIVE; URINE METHADONE SCREEN NEGATIVE; URINE PHENCYCLIDINE SCREEN NEGATIVE
[2019-07-02 02:32] LABS: URINE MARIJUANA (THC) SCREEN UNCONFIRMED POSITIVE
--- NOTE | 2019-07-02 03:45 | ER Document Report ---
Doctor's Note Notes: 07/02/19 03:41 Pt was asking to see the doctor. I sat and spoke with her for a period of time. She tells me her left elbow and shoulder are a bit sore and she feels that may be from the fall from the bed she had earlier. We discussed her recent hospitalization and that she was sent home with multiple medicines which inc luded opiods. She has no nausea or vomiting now. She also tells me she can not recall ever seeing the first doctor that saw her. I am unclear why this is. Feel she is safe for follow up. Son is reportedly en route to provide ride.
--- NOTE | 2019-07-02 06:31 | ER Document Report ---
Doctor's Note Notes: 07/02/19 06:27 doctors note at 0 [phone]; it was brought to my attention by nursing staff and administration house staff venous RN and Mel ORTIZ that the patient was too unstable to be discharged. Dr. Jon had just advised me that he had been into the room several times to discuss the patient's case with son and patient. This patient was scheduled for discharge. Her CT head was negative and blood work was negative except for a single liver function. According to Mel ORTIZ she had a right-sided weakness and some confusion however venous RN advises the patient spoke in good conversation without any word absence. Patient reports she cannot recall certain words.. Therefore MRI of head was ordered.
[2019-07-02] MEDS ORDERED: ACETAMINOPHEN 325 MG TABLET PO ONE (08:11)
--- NOTE | 2019-07-02 09:17 | EKG REPORT ---
SEVERITY:- ABNORMAL ECG - SINUS RHYTHM SHORT MS INTERVAL, ACCELERATED AV CONDUCTION LEFT VENTRICULAR HYPERTROPHY : Confirmed by: Earnest Oviedo 02-Jul-2019 09:15:26
--- NOTE | 2019-07-02 09:57 | RADIOLOGY REPORT (SQ) ---
EXAM DESCRIPTION: MRI HEAD WITHOUT COMPLETED DATE/TIME: 07/02/2019 9:38 am REASON FOR STUDY: abn mend exam COMPARISON: MRI brain and [facility] [place] 05/11/2014 CT brain 07/02/2019 TECHNIQUE: Multiplanar imaging includes non-contrasted T1, T2, FLAIR, and diffusion with ADC map seq uences. Images stored on PACS. LIMITATIONS: None. FINDINGS: ANATOMY: No anomalies. Normal vascular flow voids. Pituitary fossa normal. CSF SPACES: Normal in size and contour. No hemorrhage. CEREBRUM: Sulci and gyri normal in size and contour. Normal white matter signal on FLAIR imaging. No evidence of hemorrhage, mass, or extraaxial fluid collection. POSTERIOR FOSSA: No signal alteration. No hemorrhage. No edema, masses or mass effect. Internal carin tory canals, cerebello-pontine angles, mastoids normal. DIFFUSION IMAGING: Negative for acute or sub-acute infarction. ORBITS: No masses. Globes normal. PARANASAL SINUSES: No fluid levels. Mucosa normal. OTHER: No other significant finding. IMPRESSION: NORMAL MRI OF THE BRAIN WITHOUT INTRAVENOUS GADOLINIUM CONTRAST. EVIDENCE OF ACUTE STROKE: NO. TECHNICAL DOCUMENTATION: JOB ID: [id number] [employer]- All Rights Reserved Reading location - IP/workstation name: [facility]
[2019-07-02] MEDS ORDERED: GENTAMICIN SULFATE INJ 80 MG/2 ML VIAL IM STA (11:43)
[2019-07-02] MEDS ORDERED: KETOROLAC TROMETHAMINE 60 MG/2 ML SDV IM ONE (11:44)
[2019-07-02] MEDS ORDERED: LACTULOSE SYRUP 20 GM/30 ML UDCUP PO ONE (11:48)
--- NOTE | 2019-07-02 11:48 | ER Document Report ---
Doctor's Note Notes: 07/02/19 11:45 I was called to room to give the patient her MRI results of negative. I advised her of a UTI but negative MRI stroke findings. Also patient says no one checked her out after she fell out of her bed this morning injuring her left arm shoulder neck and says she has had 2 weeks without a bowel movement. She says the staff addressed" her stroke like symptoms of being unable to recognize the speech patterns of the doctors who saw her before." 07/02/19 11:48
[2019-07-02] MEDS ORDERED: PROMETHAZINE HCL INJ 25 MG/1 ML VIAL IM ONE (12:13)
--- NOTE | 2019-07-02 13:11 | RADIOLOGY REPORT (SQ) ---
EXAM DESCRIPTION: KUB/ABDOMEN (SINGLE VIEW); CERV SP 3 VIEW OR LESS; ELBOW LEFT OVER 2 VIEWS; SHOULD ER LEFT 2 OR MORE VIEWS COMPLETED DATE/TIME: 07/02/2019 12:40 pm REASON FOR STUDY: pain; fall out of bed COMPARISON: None. FINDINGS: One view abdomen: Nonobstructive bowel gas pattern. Large amount of stool throughout the colon. Bones and. Three views cervical spine: Grossly normal alignment with lower cervical spondylosis. Cervicothorac ic junction incompletely imaged. Soft tissues normal. No evidence of fracture. Three views left shoulder: No bone, joint or soft tissue abnormality. Four views left elbow: No joint effusion or acute fracture suggested. TECHNICAL DOCUMENTATION: JOB ID: [id number] Reading location - IP/workstation name: [email or web address]
--- NOTE | 2019-07-02 13:11 | RADIOLOGY REPORT (SQ) ---
EXAM DESCRIPTION: KUB/ABDOMEN (SINGLE VIEW); CERV SP 3 VIEW OR LESS; ELBOW LEFT OVER 2 VIEWS; SHOULD ER LEFT 2 OR MORE VIEWS COMPLETED DATE/TIME: 07/02/2019 12:40 pm REASON FOR STUDY: pain; fall out of bed COMPARISON: None. FINDINGS: One view abdomen: Nonobstructive bowel gas pattern. Large amount of stool throughout the colon. Bones and. Three views cervical spine: Grossly normal alignment with lower cervical spondylosis. Cervicothorac ic junction incompletely imaged. Soft tissues normal. No evidence of fracture. Three views left shoulder: No bone, joint or soft tissue abnormality. Four views left elbow: No joint effusion or acute fracture suggested. TECHNICAL DOCUMENTATION: JOB ID: [id number] Reading location - IP/workstation name: [email or web address]
--- NOTE | 2019-07-02 13:11 | RADIOLOGY REPORT (SQ) ---
EXAM DESCRIPTION: KUB/ABDOMEN (SINGLE VIEW); CERV SP 3 VIEW OR LESS; ELBOW LEFT OVER 2 VIEWS; SHOULD ER LEFT 2 OR MORE VIEWS COMPLETED DATE/TIME: 07/02/2019 12:40 pm REASON FOR STUDY: pain; fall out of bed COMPARISON: None. FINDINGS: One view abdomen: Nonobstructive bowel gas pattern. Large amount of stool throughout the colon. Bones and. Three views cervical spine: Grossly normal alignment with lower cervical spondylosis. Cervicothorac ic junction incompletely imaged. Soft tissues normal. No evidence of fracture. Three views left shoulder: No bone, joint or soft tissue abnormality. Four views left elbow: No joint effusion or acute fracture suggested. TECHNICAL DOCUMENTATION: JOB ID: [id number] Reading location - IP/workstation name: [email or web address]
--- NOTE | 2019-07-02 13:11 | RADIOLOGY REPORT (SQ) ---
EXAM DESCRIPTION: KUB/ABDOMEN (SINGLE VIEW); CERV SP 3 VIEW OR LESS; ELBOW LEFT OVER 2 VIEWS; SHOULD ER LEFT 2 OR MORE VIEWS COMPLETED DATE/TIME: 07/02/2019 12:40 pm REASON FOR STUDY: pain; fall out of bed COMPARISON: None. FINDINGS: One view abdomen: Nonobstructive bowel gas pattern. Large amount of stool throughout the colon. Bones and. Three views cervical spine: Grossly normal alignment with lower cervical spondylosis. Cervicothorac ic junction incompletely imaged. Soft tissues normal. No evidence of fracture. Three views left shoulder: No bone, joint or soft tissue abnormality. Four views left elbow: No joint effusion or acute fracture suggested. TECHNICAL DOCUMENTATION: JOB ID: [id number] Reading location - IP/workstation name: [email or web address]
[2019-07-02 14:42] VITALS: BP 139/96
== END 2019-07-02 14:41 | disposition home or self-care (01) ==
LOC: ER 17:50
DX: N39.0 Urinary tract infection, site not specified (principal); R11.2 Nausea with vomiting, unspecified; R51 Headache; K59.00 Constipation, unspecified; S49.92XD Unspecified injury of left shoulder and upper arm, subsequent encounter; W19.XXXD Unspecified fall, subsequent encounter; R10.9 Unspecified abdominal pain; R41.0 Disorientation, unspecified; M62.81 Muscle weakness (generalized); I10 Essential (primary) hypertension; E11.9 Type 2 diabetes mellitus without complications
CPT/HCPCS: 93005; 36415; 83690; 83735; 85025; 80053; 81001; 80307; 70551; 72040; 73080; 74018; 73030; 70450; 93010; J3490; J1885; J1580; J2550; 87086; 87088; 96372; 99284

== ENCOUNTER 2019-07-12 00:25 | Emergency (ER) | payer SELFPAY ==
[2019-07-12] MEDS ORDERED: NORMAL SALINE 1000 ML 1,000 ML IV ONE (00:52)
[2019-07-12 01:05] LABS: ABSOLUTE BASOPHILS # (AUTO) 0.1 10^3/uL (0.0-0.2); ABSOLUTE LYMPHOCYTES (AUTO) 1.2 10^3/uL (0.5-4.7); ABSOLUTE MONOCYTES (AUTO) 0.2 10^3/uL (0.1-1.4); ABSOLUTE NEUT (AUTO) 7.3 10^3/uL (1.7-8.2); BASOPHILS % (AUTO) 0.7 % (0-2); EOSINOPHILS % (AUTO) 0.1 % (0-6); HEMOGLOBIN 13.2 g/dL (12.0-15.5); LYMPHOCYTES % (AUTO) 13.3 % (13-45); MEAN CORPUSCULAR HEMOGLOBIN 30.7 pg (27.0-33.4); MEAN CORPUSCULAR HGB CONC 33.9 g/dL (32.0-36.0); MEAN CORPUSCULAR VOLUME 91 fl (80-97); MONOCYTES % (AUTO) 2.6 % (3-13); PLATELET COUNT 408 10^3/uL (150-450); RED CELL DISTRIBUTION WIDTH 14.4 % (11.5-14.0); SEGMENTED NEUTROPHILS % (AUTO) 83.3 % (42-78); TOTAL CELLS COUNTED % (AUTO) 100 %; WHITE BLOOD COUNT 8.7 10^3/uL (4.0-10.5)
[2019-07-12 01:29] LABS: ALBUMIN 4.7 g/dL (3.5-5.0); ALKALINE PHOSPHATASE 122 U/L (38-126); ANION GAP 13 (5-19); ASPARTATE AMINO TRANSFERASE 27 U/L (14-36); BILIRUBIN,TOTAL 0.5 mg/dL (0.2-1.3); BLOOD UREA NITROGEN 11 mg/dL (7-20); CALCIUM 10.1 mg/dL (8.4-10.2); CARBON DIOXIDE 19 mmol/L (22-30); CHLORIDE 107 mmol/L (98-107); CREATINE KINASE 116 U/L (30-135); GLUCOSE 188 mg/dL (75-110); POTASSIUM 4.1 mmol/L (3.6-5.0); TOTAL PROTEIN 7.8 g/dL (6.3-8.2)
[2019-07-12 01:31] LABS: APPEARANCE,URINE SLIGHTLY-CLOUDY; BILIRUBIN,URINE NEGATIVE (NEGATIVE); COLOR,URINE STRAW; GLUCOSE, URINE 150 mg/dL (NEGATIVE); KETONES,URINE TRACE mg/dL (NEGATIVE); LEUKOCYTE ESTERASE,URINE NEGATIVE (NEGATIVE); NITRITE,URINE NEGATIVE (NEGATIVE); PROTEIN,URINE 30 mg/dL (NEGATIVE); URINE SPECIFIC GRAVITY 1.012; UROBILINOGEN,URINE NEGATIVE mg/dL (<2.0)
[2019-07-12] MEDS ORDERED: MORPHINE SULFATE 10 MG/ML INJ IV ONE ×2 (01:32→03:53)
[2019-07-12] MEDS ORDERED: ONDANSETRON HCL INJ/PF 4 MG/2 ML SDV IV ONE (01:32)
[2019-07-12] MEDS ORDERED: HYDRALAZINE HCL INJ/PF 20 MG/1 ML SDV IV ONE (01:34)
[2019-07-12 01:40] LABS: TROPONIN I < 0.012 ng/mL
--- NOTE | 2019-07-12 01:51 | ER Document Report ---
Entered by SWATI HOLM SCRIBE 07/12/19 0124 Acting as scribe for:JOSSE ALEXANDER IV, MD ED General - General Chief Complaint: Chest Pain Stated Complaint: CHEST PAIN,NAUSEA/STOMACH PAIN Time Seen by Provider: 07/12/19 01:21 Primary Care Provider: [facility] [Primary Care Provider] - Follow up as needed Mode of Arrival: Medic Information source: Patient Notes: This 49 year old female patient brought in by EMS presents to the ED today with complaints of sternal chest pain that began at 1700 last night. Patient also reports nausea, vomiting, diarrhea, and a slight headache. Patient states that she has a history of Chrohn's disease, so she has experienced similar symptoms in the past, but she doesn't believe that it is what brought her here today. TRAVEL OUTSIDE OF THE [place] IN LAST 30 DAYS: No - Related Data Allergies/Adverse Reactions: Iodinated Contrast Media Allergy (Verified 06/02/19 11:50) Penicillins Allergy (Verified 06/02/19 11:50) tramadol Allergy (Verified 06/02/19 11:50) Past Medical History - General Information source: Patient, [facility] Records - Social History Smoking Status: Never Smoker Cigarette use (# per day): No Chew tobacco use (# tins/day): No Smoking Education Provided: No Family History: Reviewed & Not Pertinent, CAD, DM, Hypertension Patient has suicidal ideation: No Patient has homicidal ideation: No - Past Medical History Cardiac Medical History: Reports: Hx Hypercholesterolemia, Hx Hypertension Endocrine Medical History: Reports: Hx Diabetes Mellitus Type 2 GI Medical History: Reports: Hx Crohn's Disease Psychiatric Medical History: Reports: Hx Depression - Immunizations Hx Diphtheria, Pertussis, Tetanus Vaccination: Yes Review of Systems - Review of Systems Constitutional: No symptoms reported EENT: No symptoms reported Cardiovascular: See HPI, Chest pain Respiratory: No symptoms reported Gastrointestinal: See HPI, Diarrhea, Nausea, Vomiting Genitourinary: No symptoms reported Female Genitourinary: No symptoms reported Musculoskeletal: No symptoms reported Skin: No symptoms reported Hematologic/Lymphatic: No symptoms reported Neurological/Psychological: See HPI, Headaches -: Yes All other systems reviewed and negative Physical Exam - Vital signs Vitals: Temp Pulse Resp BP Pulse Ox 98.4 F 69 22 H 202/103 H 100 07/12/19 00:27 07/12/19 00:27 07/12/19 00:27 07/12/19 00:27 07/12/19 00:27 Interpretation: Hypertensive - General General appearance: Appears well, Alert - HEENT Head: Normocephalic, Atraumatic Eyes: Normal Pupils: PERRL - Respiratory Respiratory status: No respiratory distress Chest status: Nontender Breath sounds: Normal Chest palpation: Normal - Cardiovascular Rhythm: Regular Heart sounds: Normal auscultation Murmur: No - Abdominal Inspection: Normal Distension: No distension Bowel sounds: Normal Tenderness: Nontender Organomegaly: No organomegaly - Back Back: Normal, Nontender - Extremities General upper extremity: Normal inspection General lower extremity: Normal inspection - Neurological Neuro grossly intact: Yes - Psychological Associated symptoms: Normal affect, Normal mood - Skin Skin Temperature: Warm Skin Moisture: Dry Skin Color: Normal Course - Re-evaluation Re-evalutation: 07/12/19 04:00 Findings of ED MSE discussed with patient. All questions were answered prior to discharge. Emergency signs and symptoms, reasons to return to the emergency department discussed with patient. - Vital Signs Vital signs: Temp Pulse Resp BP Pulse Ox 99 F 80 24 H 197/101 H 100 07/12/19 03:02 07/12/19 02:58 07/12/19 03:14 07/12/19 03:14 07/12/19 03:14 - Laboratory Result Diagrams: 07/12/19 00:50 07/12/19 00:50 Laboratory results interpreted by me: 07/12/19 07/12/19 07/12/19 00:50 00:50 01:13 RDW 14.4 H [place] % (Auto) 2.6 L Seg Neutrophils % 83.3 H Carbon Dioxide 19 L Glucose 188 H Urine Protein 30 H Urine Glucose (UA) 150 H Urine Ketones TRACE H - Diagnostic Test Radiology reviewed: Reports reviewed - EKG Interpretation by Me Additional EKG results interpreted by me: 07/12/19 03:56 EKG obtained on 07/12/2019 at 003 6 hours was interpreted by this MD. Findings: Sinus rhythm, rate 66, normal axis, P waves proceed QRS complexes, QRS complexes appear narrow, there are no patterns of ST segment elevation or depression to suggest acute myocardial ischemia or infarction. Impression sinus rhythm with nonspecific ST segments. Discharge - Discharge Clinical Impression: Elevated blood pressure reading Chest pain Qualifiers: Chest pain type: unspecified Qualified Code(s): R07.9 - Chest pain, unspecified Nausea and vomiting Qualifiers: Vomiting type: unspecified Vomiting Intractability: unspecified Qualified Code(s): R11.2 - Nausea with vomiting, unspecified Condition: Good Disposition: HOME, SELF-CARE Instructions: Chest Pain of Unclear Cause ([facility]), Vomiting ([facility]) Additional Instructions: Return to the Emergency Department without delay if any worse. HOME CARE INSTRUCTIONS & INFORMATION: Thank you for choosing us for your medical needs. We hope you're satisfied with the care you received. After you leave, you must properly care for your problem and, at the same time, observe its progress. Any condition can change. Some illnesses can change rapidly over hours or days. If your condition worsens, return to the Emergency Department or see your physician promptly. ABOUT YOUR X-RAYS AND EKG'S: If you had an EKG or X-rays taken, they have been read by the Emergency Physician. The X-rays and EKG's will also be read by a Radiologist or [employer] within 24 hours. If discrepancies are noted, you will be notified by telephone. Please be certain the ED has a correct telephone number & address where you can be reached. Also, realize that some fractures or abnormalities do not show up on initial X-rays. If your symptoms continue, see your physician. ABOUT YOUR LABORATORY TEST: If you had laboratory tests, the results have been reviewed by the Emergency Physician. Some test results (for example cultures) may not be available for several days. You will be contacted if any test result shows you need additional treatment. Please be certain the ED has a correct telephone number and address where you can be reached. ABOUT YOUR MEDICATIONS: You will receive instructions on how to take your medicine on the prescription label you receive. Additional information may be provided by the Pharmacy. If you have questions afterwards, call the ED for clarification or further instructions. Some prescribed medications may cause drowsiness. Do not perform tasks such as driving a car or operating machinery without consulting your Pharmacist. If you feel you need a refill of pain medication, your condition will need re-evaluation. Please do not call for a refill of any medication. ABOUT YOUR SIGNATURE: Signature of this document acknowledges to followin. Understanding that you received emergency treatment and that you may be released before al medical problems are known or treated. Please be certain the ED has a correct phone number & address where you can be reached. 2. Acknowledgement that you will arrange for follow-up care as recommended. 3. Authorization for the Emergency Physician to provide information to your follow-up Physician in order to maximize your care. AT ANY TIME, IF YOUR SYMPTOMS CHANGE SIGNIFICANTLY OR WORSEN OR YOU DEVELOP NEW SYMPTOMS, RETURN TO THE EMERGENCY DEPARTMENT IMMEDIATELY FOR RE-EVALUATION. OUR GOAL IS TO PROVIDE EXCELLENT MEDICAL CARE! WE HOPE THAT WE HAVE MET YOUR EXPECTATIONS DURING YOUR EMERGENCY DEPARTMENT VISIT AND THAT YOU FEEL YOU HAVE RECEIVED EXCELLENT CARE! Prescriptions: Prochlorperazine Maleate [Compazine 10 mg Tablet] 10 mg PO ASDIR PRN #10 tablet PRN Reason: Referrals: [facility] [Primary Care Provider] - Follow up as needed I personally performed the services described in the documentation, reviewed and edited the documentation which was dictated to the scribe in my presence, and it accurately records my words and actions.
--- NOTE | 2019-07-12 01:55 | RADIOLOGY REPORT (SQ) ---
EXAM DESCRIPTION: XR CHEST 1 VIEW COMPLETED DATE/TME: 07/12/2019 00:42 CLINICAL HISTORY: 49 years, Female, CP COMPARISON: 06/22/2019 chest NUMBER OF VIEWS: 1 TECHNIQUE: Portable chest LIMITATIONS: None. FINDINGS: The heart size is normal. Lungs are clear. No pneumothorax IMPRESSION: Negative chest copyright 2011 [employer]- All Rights Reserved
[2019-07-12] MEDS ORDERED: PROMETHAZINE HCL INJ 25 MG/1 ML VIAL IV ONE (02:48)
--- NOTE | 2019-07-12 03:34 | RADIOLOGY REPORT (SQ) ---
CLINICAL HISTORY: abdominal pain COMPARISON: None. 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 FINDINGS: Lower lungs are clear. Abdomen: The liver is normal in appearance. There is no biliary dilatation. Gallbladder is normal in appearance. Gallbladder is normal in appearance. The pancreas and spleen are normal in appearance. The adrenal glands and kidneys are unremarkable. Abdominal aorta is normal in course and caliber without aneurysm. There is no free air. There is no retroperitoneal adenopathy. Pelvis: There is no bowel obstruction. Urinary bladder is unremarkable. There is no free fluid. Uterus is normal in size. Appendix is normal. Skeleton: There are no acute osseous findings. No suspicious bony lesions. IMPRESSION: No acute process.
[2019-07-12] MEDS ORDERED: PROCHLORPERAZINE EDISYLATE INJ 10 MG/2 ML VIAL IV ONE (04:00)
[2019-07-12 05:03] VITALS: BP 184/87
--- NOTE | 2019-07-12 20:34 | EKG REPORT ---
SEVERITY:- ABNORMAL ECG - SINUS RHYTHM NONSPECIFIC INTRAVENTRICULAR CONDUCTION DELAY PROBABLE LVH WITH SECONDARY REPOL ABNRM LATERAL INFARCT, AGE INDETERMINATE : Confirmed by: Rissa Sepulveda MD 12-Jul-2019 20:32:39
== END 2019-07-12 05:03 | disposition home or self-care (01) ==
LOC: ER 00:25
DX: R07.9 Chest pain, unspecified (principal); R11.2 Nausea with vomiting, unspecified; R19.7 Diarrhea, unspecified; R51 Headache; I10 Essential (primary) hypertension; E11.9 Type 2 diabetes mellitus without complications; Z91.040 Latex allergy status; Z88.0 Allergy status to penicillin; Z88.6 Allergy status to analgesic agent; Z88.5 Allergy status to narcotic agent
CPT/HCPCS: 93005; 36415; 82553; 82550; 85025; 80053; 81001; 84484; 71045; 74176; 93010; J0360; J2270; J0780; J2550; J2405; J7030; 96361; 96374; 96375; 96376; 99285

== ENCOUNTER 2020-01-02 16:00 | Inpatient (IN) | payer SELFPAY ==
[2020-01-02] MEDS ORDERED: ONDANSETRON HCL INJ/PF 4 MG/2 ML SDV IV ONE (17:46)
[2020-01-02] MEDS ORDERED: HYDROMORPHONE HCL INJ/PF 2 MG/ML AMPULE IV ONE (17:47)
[2020-01-02] MEDS ORDERED: NORMAL SALINE 1000 ML 1,000 ML IV ONE ×2 (17:47→20:56)
[2020-01-02] MEDS ORDERED: FAMOTIDINE INJ/PF 20 MG/2 ML SDV IV ONE (17:48)
--- NOTE | 2020-01-02 17:50 | ER Document Report ---
ED GI/ - General Chief Complaint: Abdominal Pain Stated Complaint: VOMITING Time Seen by Provider: 01/02/20 16:19 Primary Care Provider: [facility] [NO LOCAL MD] - Follow up as needed Mode of Arrival: Ambulatory Information source: Patient Notes: 49-year-old female presents to the emergency department with a history of nausea vomiting and cramping abdominal pain. She has a history of Crohn's disease and believes that she is having a flareup of her Crohn's. She also has hypertension, has been unable to keep her blood pressure medications down and thus her blood pressure is elevated. TRAVEL OUTSIDE OF THE [place] IN LAST 30 DAYS: No - Related Data Allergies/Adverse Reactions: Iodinated Contrast Media Allergy (Verified 01/02/20 16:59) Penicillins Allergy (Verified 01/02/20 16:59) tramadol Allergy (Verified 01/02/20 16:59) Past Medical History - Social History Smoking Status: Current Every Day Smoker Frequency of alcohol use: None Drug Abuse: None Family History: Reviewed & Not Pertinent, CAD, DM, Hypertension Patient has homicidal ideation: No - Past Medical History Cardiac Medical History: Reports: Hx Hypercholesterolemia, Hx Hypertension Denies: Hx Coronary Artery Disease, Hx Heart Attack Pulmonary Medical History: Denies: Hx Asthma, Hx COPD Neurological Medical History: Denies: Hx Seizures Endocrine Medical History: Reports: Hx Diabetes Mellitus Type 2. Denies: Hx Diabetes Mellitus Type 1, Hx Hyperthyroidism, Hx Hypothyroidism Renal/ Medical History: Denies: Hx Peritoneal Dialysis GI Medical History: Reports: Hx Crohn's Disease. Denies: Hx Cirrhosis, Hx Gastroesophageal Reflux Disease, Hx Hepatitis, Hx Hiatal Hernia, Hx Ulcerative Colitis Musculoskeletal Medical History: Denies Hx Arthritis, Denies Hx Gout Skin Medical History: Denies Hx Eczema, Denies Hx Psoriasis Psychiatric Medical History: Reports: Hx Depression Infectious Medical History: Denies: Hx Hepatitis Past Surgical History: Denies: Hx Pacemaker - Immunizations Hx Diphtheria, Pertussis, Tetanus Vaccination: Yes Review of Systems - Review of Systems Notes: Constitutional: Negative for fever. HENT: Negative for sore throat. Eyes: Negative for visual changes. Cardiovascular: Negative for chest pain. Respiratory: Negative for shortness of breath. Gastrointestinal:+ abdominal pain,+ nausea and vomiting, no diarrhea. Genitourinary: Negative for dysuria. Musculoskeletal: Negative for back pain. Skin: Negative for rash. Neurological: Negative for headaches, weakness or numbness. 10 point ROS negative except as marked above and in HPI. Physical Exam - Vital signs Vitals: Temp Pulse Resp BP Pulse Ox 98.8 F 61 18 189/99 H 100 01/02/20 16:20 01/02/20 16:20 01/02/20 16:20 01/02/20 16:20 01/02/20 16:20 - Notes Notes: PHYSICAL EXAMINATION: Physical Exam: General: Well-nourished well-developed 49-year-old female in mild distress secondary to nausea and abdominal pain. HEENT: NC/AT, pupils equal round and reactive to light, MM moist,nares clear, oropharynx clear, airway patent Neck: supple, no adenopathy, no masses. Good range of motion Lungs: clear, no wheezing, no rales no rhonchi CVS: Regular rate and rhythm no murmur gallop or rub Abdomen: Soft, active, tenderness in the mid epigastric region, periumbilical tenderness, mild guarding, no rebound, no masses, no hepatosplenomegaly Ext: No edema, clubbing or cyanosis. Neuro: Alert and responsive, moving all 4 extremities on command, cranial nerves intact, no focal findings Skin: Intact no open lesions, no rash PSYCH: Normal mood, normal affect. Course - Vital Signs Vital signs: Temp Pulse Resp BP Pulse Ox 98.8 F 61 18 189/99 H 100 01/02/20 16:20 01/02/20 16:20 01/02/20 16:20 01/02/20 16:20 01/02/20 16:20 - Laboratory Result Diagrams: 01/02/20 17:40 01/02/20 17:40 Laboratory results interpreted by me: 01/02/20 01/02/20 01/02/20 17:40 17:40 21:22 Seg Neutrophils % 82.4 H Sodium 134.1 L Glucose 133 H Calcium 10.6 H Alkaline Phosphatase 129 H Total Protein 8.5 H Urine Protein 30 H Urine Blood SMALL H Leukocyte Esterase Rfl LARGE H Discharge - Discharge Clinical Impression: Colitis, Poorly-controlled hypertension Nausea and vomiting Qualifiers: Vomiting type: unspecified Vomiting Intractability: unspecified Qualified Cod e(s): R11.2 - Nausea with vomiting, unspecified Abdominal pain Qualifiers: Abdominal location: generalized Qualified Code(s): R10.84 - Generalized abdominal pain Condition: Good Disposition: ADMITTED INPATIENT Admitting Provider: Aki (Hospitalist) Unit Admitted: Medical Floor Referrals: [facility] [NO LOCAL MD] - Follow up as needed
[2020-01-02 18:04] LABS: ABSOLUTE BASOPHILS # (AUTO) 0.1 10^3/uL (0.0-0.2); ABSOLUTE LYMPHOCYTES (AUTO) 1.3 10^3/uL (0.5-4.7); ABSOLUTE MONOCYTES (AUTO) 0.3 10^3/uL (0.1-1.4); ABSOLUTE NEUT (AUTO) 8.2 10^3/uL (1.7-8.2); BASOPHILS % (AUTO) 0.7 % (0-2); HEMATOCRIT 44.2 % (36.0-47.0); HEMOGLOBIN 15.3 g/dL (12.0-15.5); LYMPHOCYTES % (AUTO) 13.5 % (13-45); MEAN CORPUSCULAR HEMOGLOBIN 31.4 pg (27.0-33.4); MEAN CORPUSCULAR HGB CONC 34.5 g/dL (32.0-36.0); MEAN CORPUSCULAR VOLUME 91 fl (80-97); MONOCYTES % (AUTO) 3.4 % (3-13); PLATELET COUNT 340 10^3/uL (150-450); RED BLOOD COUNT 4.87 10^6/uL (3.72-5.28); RED CELL DISTRIBUTION WIDTH 13.4 % (11.5-14.0); SEGMENTED NEUTROPHILS % (AUTO) 82.4 % (42-78); TOTAL CELLS COUNTED % (AUTO) 100 %; WHITE BLOOD COUNT 9.9 10^3/uL (4.0-10.5)
[2020-01-02 18:18] LABS: ALKALINE PHOSPHATASE 129 U/L (38-126); ANION GAP 9 (5-19); ASPARTATE AMINO TRANSFERASE 29 U/L (14-36); BILIRUBIN,DIRECT 0.1 mg/dL (0.0-0.4); BILIRUBIN,TOTAL 0.7 mg/dL (0.2-1.3); BLOOD UREA NITROGEN 12 mg/dL (7-20); CALCIUM 10.6 mg/dL (8.4-10.2); CARBON DIOXIDE 22 mmol/L (22-30); CHLORIDE 103 mmol/L (98-107); GLUCOSE 133 mg/dL (75-110); POTASSIUM 3.8 mmol/L (3.6-5.0); TOTAL PROTEIN 8.5 g/dL (6.3-8.2)
--- NOTE | 2020-01-02 18:33 | RADIOLOGY REPORT (SQ) ---
EXAM DESCRIPTION: ACUTE ABDOMEN SERIES IMAGES COMPLETED DATE/TIME: 01/02/2020 6:17 pm REASON FOR STUDY: Abdominal pain COMPARISON: None. NUMBER OF VIEWS: Three views. TECHNIQUE: Frontal chest, supine abdomen and upright/decubitus abdomen radiographic images acquired. LIMITATIONS: None. FINDINGS: CHEST: Lungs clear of infiltrates. FREE AIR: None. No abnormal gas collections. BOWEL GAS PATTERN: Nonobstructive pattern. No dilated loops or air fluid levels. CALCIFICATIONS: No suspicious calcifications. HARDWARE: None in the abdomen. SOFT TISSUES: No gross mass or suggestion of organomegaly. BONES: No acute fracture. No worrisome bone lesions. OTHER: No other significant finding. IMPRESSION: NO RADIOGRAPHIC EVIDENCE FOR ACUTE ABDOMINAL DISEASE. TECHNICAL DOCUMENTATION: JOB ID: [id number] 2010 [employer]- All Rights Reserved Reading location - IP/workstation name: [email or web address]
[2020-01-02] MEDS ORDERED: PROMETHAZINE HCL INJ 25 MG/1 ML VIAL IV ONE (19:01)
[2020-01-02] MEDS ORDERED: METHYLPREDNISOLONE INJ 125 MG/2 ML SDV IV ONE (19:43)
[2020-01-02] MEDS ORDERED: MORPHINE SULFATE 10 MG/ML INJ IV ONE (19:44)
[2020-01-02] MEDS ORDERED: PROCHLORPERAZINE EDISYLATE INJ 10 MG/2 ML VIAL IV ONE (20:55)
[2020-01-02] MEDS ORDERED: DIPHENHYDRAMINE HCL 50 MG/ML VIAL IV ONE (20:55)
[2020-01-02 21:36] LABS: APPEARANCE,URINE CLEAR; BILIRUBIN,URINE NEGATIVE (NEGATIVE); COLOR,URINE STRAW; GLUCOSE, URINE NEGATIVE (NEGATIVE); KETONES,URINE NEGATIVE (NEGATIVE); PROTEIN,URINE 30 mg/dL (NEGATIVE); URINE SPECIFIC GRAVITY 1.005; UROBILINOGEN,URINE NEGATIVE mg/dL (<2.0)
--- NOTE | 2020-01-02 22:25 | RADIOLOGY REPORT (SQ) ---
CT ABDOMEN PELVIS WITHOUT IV CONTRAST HISTORY: Upper abdominal pain. COMPARISON: 07/12/2019 TECHNIQUE: CT scan of the abdomen and pelvis was performed without IV contrast. This exam was performed according to our departmental dose-optimization program, which includes automated exposure control, adjustment of the mA and/or kV according to patient size and/or use of iterative reconstruction technique. FINDINGS: The lung bases are clear. No pleural or pericardial effusions. There is no hiatal hernia. The liver, spleen, pancreas, gallbladder, adrenal glands, and kidneys are unremarkable. Simple cyst in the right kidney. No hydronephrosis or urinary stones are seen. The pelvic organs are also unremarkable. There is diffuse circumferential wall thickening throughout the colon which extends from the transverse colon distally. No free air or free fluid. The appendix and small bowel are normal. The aorta is normal caliber and contains atherosclerotic calcifications. There are mild degenerative changes of the spine. No abnormal hernia is seen. IMPRESSION: Findings which may represent mild colitis of the distal colon. This may be infectious or inflammatory in origin.
[2020-01-03] MEDS ORDERED: HYDROMORPHONE HCL INJ/PF 2 MG/ML AMPULE IV ONE (00:02)
[2020-01-03] MEDS ORDERED: LABETALOL HCL INJ 20 MG/4 ML DISP.SYRIN IV ONE (01:05)
[2020-01-03] MEDS: CIPROFLOXACIN 400 MG/D5W RTU 400 MG/200 ML RTUPB IV SCH ×3 (01:50→22:30)
--- NOTE | 2020-01-03 01:54 | PDOC H&P ---
History of Present Illness History of Present Illness: JOON ECKERT is a 49 year old female with a history of Crohn's disease and hypertension who presents with nausea and vomiting that started yesterday afternoon. She says she was in her usual state of health until she started to feel nauseated. She had some vague abdominal pain but it was mostly just nausea. She said she vomited "100 times." She is not had any fever. No shortness of breath. No chest pain. No diarrhea. No flank pain or dysuria. Her labs were fairly unremarkable. She had a CT that showed possible mild circumferential colitis. Past Medical History Cardiac Medical History: Reports: Hyperlipidema, Hypertension Denies: Coronary Artery Disease, Myocardial Infarction Pulmonary Medical History: Denies: Asthma, Chronic Obstructive Pulmonary Disease (COPD) Neurological Medical History: Denies: Seizures Endocrine Medical History: Reports: Diabetes Mellitus Type 2 Denies: Diabetes Mellitus Type 1, Hyperthyroidism, Hypothyroidism GI Medical History: Reports: Crohn's Disease Denies: Cirrhosis, Gastroesophageal Reflux Disease, Hepatitis, Hiatal Hernia, Ulcerative Colitis Musculoskeltal Medical History: Denies: Arthritis, Gout Skin Medical History: Denies: Eczema, Psoriasis Psychiatric Medical History: Reports: Depression Hematology: Denies: Anemia, Bleeding Tendencies Past Surgical History Past Surgical History: Denies: Pacemaker Social History Smoking Status: Current Every Day Smoker Frequency of Alcohol Use: None Hx Recreational Drug Use: No Drugs: None Hx Prescription Drug Abuse: No Family History Family History: Reviewed & Not Pertinent, CAD, DM, Hypertension Parental Family History Reviewed: Yes Children Family History Reviewed: Yes Sibling(s) Family History Reviewed.: Yes Medication/Allergy Home Medications: Ondansetron [Zofran Odt 4 mg Tablet] 1 tab PO Q6H #15 tab.rapdis 06/23/19 Fluoxetine HCl [Prozac 20 mg Capsule] 60 mg PO DAILY 06/26/19 Trazodone HCl 100 mg PO HSP PRN 06/26/19 Acetaminophen [Tylenol 325 mg Tablet] 650 mg PO Q4HP PRN tablet 06/29/19 Amlodipine Besylate [Norvasc 5 mg Tablet] 5 mg PO DAILY #30 tablet 06/29/19 Atorvastatin Calcium [Lipitor 10 mg Tablet] 10 mg PO QHS #30 tablet 06/29/19 Hydrochlorothiazide [Hydrodiuril 12.5 mg Tablet] 12.5 mg PO DAILY #30 tablet 06/29/19 Levothyroxine Sodium [Synthroid 0.025 mg Tablet] 0.025 mg PO Q6AM #30 tablet 06/29/19 Lisinopril [Prinivil 10 mg Tablet] 10 mg PO DAILY #30 tablet 06/29/19 Promethazine HCl [Phenergan 25 mg Supp.rect] 1 supp MT Q6H #3 supp.rect 06/29/19 Promethazine HCl [Phenergan 25 mg Tablet] 25 mg PO Q6HP PRN #12 tablet 06/29/19 Butalb/Acetaminophen/Caffeine [Fioricet (50-325-40 mg) Tablet] 1 tab PO Q8H #20 tab 07/02/19 Chlorzoxazone [Parafon Forte Dsc 500 Mg Tablet] 500 mg PO BID PRN #14 tablet 07/02/19 Lactulose [Cephulac Syrup 20 gm/30 ml Udcup] 20 gm PO DAILY PRN #100 ml 07/02/19 Levofloxacin [Levaquin 750 mg Tablet] 750 mg PO DAILY #10 tablet 07/02/19 Prochlorperazine Maleate [Compazine 10 mg Tablet] 10 mg PO ASDIR PRN #10 tablet 07/12/19 Allergies/Adverse Reactions: Iodinated Contrast Media Allergy (Verified 01/02/20 16:59) Penicillins Allergy (Verified 01/02/20 16:59) tramadol Allergy (Verified 01/02/20 16:59) Review of Systems All systems: reviewed and no additional remarkable complaints except as stated - All systems were reviewed and were negative except as noted in the HPI Physical Exam Vital Signs: Temp Pulse Resp BP Pulse Ox 98.8 F 61 18 189/99 H 100 01/02/20 16:20 01/02/20 16:20 01/02/20 16:20 01/02/20 16:20 01/02/20 16:20 Intake & Output 01/01/20 01/02/20 01/03/20 06:59 06:59 06:59 Intake Total 1000 Balance 1000 Weight 83.915 kg General appearance: PRESENT: no acute distress, cooperative, disheveled, other - Looks fatigued Head exam: PRESENT: atraumatic, normocephalic Eye exam: PRESENT: EOMI, PERRLA. ABSENT: conjunctival injection, nystagmus, scleral icterus Ear exam: PRESENT: normal external ear exam Mouth exam: PRESENT: dry mucosa, neck supple Throat exam: ABSENT: post pharyngeal erythema Neck exam: PRESENT: full ROM. ABSENT: carotid bruit, JVD, lymphadenopathy, meningismus, tenderness, thyromegaly Respiratory exam: PRESENT: clear to auscultation ohmer, symmetrical, unlabored. ABSENT: accessory muscle use, chest wall tenderness, crackles, prolonged expiratory phas, rhonchi, tachypnea, wheezes Cardiovascular exam: PRESENT: RRR, +S1, +S2 Pulses: PRESENT: normal carotid pulses Vascular exam: PRESENT: normal capillary refill GI/Abdominal exam: PRESENT: normal bowel sounds, soft, tenderness - Very mild lower midline tenderness. ABSENT: distended, guarding, rebound Extremities exam: ABSENT: clubbing, pedal edema Musculoskeletal exam: PRESENT: normal inspection. ABSENT: deformity Neurological exam: PRESENT: awake, oriented to person, oriented to place, oriented to situation, CN II-XII grossly intact. ABSENT: motor sensory deficit Psychiatric exam: PRESENT: flat affect Skin exam: PRESENT: dry, warm Results Laboratory Results: 01/02/20 17:40 01/02/20 17:40 01/02/20 01/02/20 01/02/20 17:40 17:40 21:22 WBC 9.9 RBC 4.87 Hgb 15.3 Hct 44.2 MCV 91 MCH 31.4 MCHC 34.5 RDW 13.4 Plt Count 340 Seg Neutrophils % 82.4 H Sodium 134.1 L Potassium 3.8 Chloride 103 Carbon Dioxide 22 Anion Gap 9 BUN 12 Creatinine 0.68 Est GFR ( Amer) > 60 Glucose 133 H Calcium 10.6 H Total Bilirubin 0.7 AST 29 Alkaline Phosphatase 129 H Total Protein 8.5 H Albumin 5.0 Urine Color STRAW Urine Appearance CLEAR Urine pH 7.0 Ur Specific Grant 1.005 Urine Protein 30 H Urine Glucose (UA) NEGATIVE Urine Ketones NEGATIVE Urine Blood SMALL H Urine RBC (Auto) 5 Impressions: Acute Abdomen Series 01/02/20 17:46 IMPRESSION: NO RADIOGRAPHIC EVIDENCE FOR ACUTE ABDOMINAL DISEASE. Abdomen/Pelvis CT 01/02/20 20:57 IMPRESSION: Findings which may represent mild colitis of the distal colon. This may be infectious or inflammatory in origin. Assessment and Plan - Diagnosis (1) Acute Crohn's disease without complication Is this a current diagnosis for this admission?: Yes Plan: This does not appear to be an infectious colitis. I think it is likely a flareup of her Crohn's disease. Her on some steroids and some IV fluids and anti-medics and see how she responds. She has had no fever no leukocytosis. If she does not respond to steroids, a trial of antibiotics can be given. Will advance her diet as she tolerates. (2) Hypertension Qualifiers: Hypertension type: essential hypertension Qualified Code(s): I10 - Essential (primary) hypertension Is this a current diagnosis for this admission?: Yes Plan: We will resume her home medications when she is able to tolerate them. - Time Time Spent with patient: 35 or more minutes Anticipated Discharge Disposition: Home, Self Care Anticipated Discharge Timeframe: within 72 hours - Inpatient Certification Based on my medical assessment, after consideration of the patient's comorbiditi es, presenting symptoms, or acuity I expect that the services needed warrant INPATIENT care.: Yes I certify that my determination is in accordance with my understanding of [facility]'s requirements for reasonable and necessary INPATIENT services [42 CFR 412.3e].: Yes Medical Necessity: Significant Comorbidiites Make Outpatient Treatment Too Risky, Need Close Monitoring Due to Risk of Patient Decompensation, Need For IV Fluids, Risk of Complication if Not Cared For in Hospital
[2020-01-03] MEDS: ACETAMINOPHEN 325 MG TABLET PO PRN ×3 (04:27→17:58)
[2020-01-03 05:29] LABS: HEMATOCRIT 42.5 % (36.0-47.0); HEMOGLOBIN 14.5 g/dL (12.0-15.5); MEAN CORPUSCULAR HEMOGLOBIN 31.1 pg (27.0-33.4); MEAN CORPUSCULAR HGB CONC 34.2 g/dL (32.0-36.0); MEAN CORPUSCULAR VOLUME 91 fl (80-97); PLATELET COUNT 289 10^3/uL (150-450); RED BLOOD COUNT 4.69 10^6/uL (3.72-5.28); RED CELL DISTRIBUTION WIDTH 13.8 % (11.5-14.0); WHITE BLOOD COUNT 10.2 10^3/uL (4.0-10.5)
[2020-01-03] MEDS: HEPARIN SOD (PORCINE) 5,000 UNIT/ML 1 ML VIAL SUBCUT SCH ×3 (05:53→22:30)
[2020-01-03 05:57] LABS: ANION GAP 9 (5-19); BLOOD UREA NITROGEN 13 mg/dL (7-20); CALCIUM 10.2 mg/dL (8.4-10.2); CARBON DIOXIDE 21 mmol/L (22-30); CHLORIDE 105 mmol/L (98-107); GLUCOSE 151 mg/dL (75-110); POTASSIUM 4.5 mmol/L (3.6-5.0)
[2020-01-03] MEDS: ONDANSETRON HCL INJ/PF 4 MG/2 ML SDV IV PRN ×4 (06:52→23:12)
[2020-01-03] MEDS: METHYLPREDNISOLONE INJ 40 MG/1 ML SDV IV SCH ×2 (09:11→22:30)
[2020-01-03] MEDS: KETOROLAC TROMETHAMINE INJ/PF 30 MG/1 ML SDV IV PRN ×2 (14:16→19:11)
[2020-01-03] MEDS: HYDROXYZINE PAMOATE 25 MG CAPSULE PO SCH ×2 (14:16→17:59)
[2020-01-03] MEDS: PAROXETINE HCL 20 MG TABLET PO SCH (17:59)
[2020-01-03] MEDS: RINGERS SOLUTION,LACTATED 1,000 ML IV PRN (19:11)
[2020-01-03] MEDS ORDERED: LIDOCAINE 2% VISCOUS SOLN 15 ML UDCUP PO ONE (22:15)
[2020-01-03] MEDS ORDERED: MAG HYDROX/AL HYDROX/SIMETH SUSP 30 ML UDCUP PO ONE (22:15)
[2020-01-03] MEDS ORDERED: FAMOTIDINE 40 MG/5 ML SUSP 50 ML PO ONE (22:15)
[2020-01-03] MEDS ORDERED: FAMOTIDINE 40 MG/5 ML SUSP 50 ML ONE (22:45)
[2020-01-04] MEDS ORDERED: HYDRALAZINE HCL INJ/PF 20 MG/1 ML SDV IV ONE (00:15)
[2020-01-04] MEDS: ACETAMINOPHEN 650 MG/65 ML IV SCH ×4 (00:34→11:53)
[2020-01-04] MEDS: KETOROLAC TROMETHAMINE INJ/PF 30 MG/1 ML SDV IV PRN ×4 (01:13→17:38)
[2020-01-04] MEDS: TRAZODONE HCL 50 MG TABLET PO PRN ×2 (01:45→22:11)
[2020-01-04] MEDS: ONDANSETRON HCL INJ/PF 4 MG/2 ML SDV IV PRN ×4 (03:23→18:53)
[2020-01-04 05:30] LABS: HEMATOCRIT 42.3 % (36.0-47.0); HEMOGLOBIN 14.5 g/dL (12.0-15.5); MEAN CORPUSCULAR HGB CONC 34.3 g/dL (32.0-36.0); MEAN CORPUSCULAR VOLUME 90 fl (80-97); PLATELET COUNT 295 10^3/uL (150-450); RED BLOOD COUNT 4.68 10^6/uL (3.72-5.28); RED CELL DISTRIBUTION WIDTH 13.6 % (11.5-14.0); WHITE BLOOD COUNT 15.5 10^3/uL (4.0-10.5)
[2020-01-04 05:48] LABS: ANION GAP 9 (5-19); BLOOD UREA NITROGEN 17 mg/dL (7-20); CALCIUM 9.6 mg/dL (8.4-10.2); CARBON DIOXIDE 23 mmol/L (22-30); CHLORIDE 102 mmol/L (98-107); GLUCOSE 155 mg/dL (75-110); POTASSIUM 3.4 mmol/L (3.6-5.0)
[2020-01-04] MEDS: HEPARIN SOD (PORCINE) 5,000 UNIT/ML 1 ML VIAL SUBCUT SCH ×3 (05:51→22:22)
[2020-01-04] MEDS: MORPHINE SULFATE 10 MG/ML INJ IV PRN ×3 (08:45→18:53)
[2020-01-04] MEDS: RINGERS SOLUTION,LACTATED 1,000 ML IV PRN (10:37)
[2020-01-04] MEDS: PROMETHAZINE HCL INJ 25 MG/1 ML VIAL IV PRN ×3 (11:25→22:07)
[2020-01-04] MEDS: HYDROXYZINE PAMOATE 25 MG CAPSULE PO SCH ×2 (11:30→17:38)
[2020-01-04] MEDS: PREDNISONE 20 MG TABLET PO SCH (11:31)
[2020-01-04] MEDS: FERROUS SULFATE 325 MG TABLET PO SCH (11:31)
[2020-01-04] MEDS ORDERED: DIPHENHYDRAMINE HCL 2% CREAM 30 GM TP SCH (12:00)
--- NOTE | 2020-01-04 14:39 | PDOC PROGRESS REPORT ---
Subjective Progress Note for:: 01/04/20 Subjective:: Patient states that she had a very difficult night because she was experiencing a lot of abdominal pain. Also states that she has vomited several times today about what she is referring to as vomiting seems to actually be dry heaves. She states she did not do well with the Tylenol. She was not able to eat much yesterday but did have a little bit. She denies fever or chills. She is not having any diarrhea or any bloody bowel movements. Reason For Visit: NAUSEA AND VOMITING ABDOMINAL PAIN COLITIS POORLY Physical Exam Vital Signs: Temp Pulse Resp BP Pulse Ox 98.7 F 61 19 190/102 H 97 01/03/20 23:28 01/03/20 23:28 01/03/20 23:28 01/03/20 23:28 01/03/20 23:28 Intake & Output 01/03/20 01/04/20 01/05/20 06:59 06:59 06:59 Intake Total 2500 2005 193 Balance 2500 2005 193 Weight 89.9 kg 89.9 kg General appearance: PRESENT: no acute distress, cooperative Neck exam: ABSENT: JVD Respiratory exam: PRESENT: clear to auscultation homer, unlabored. ABSENT: wheezes Cardiovascular exam: PRESENT: RRR, +S1, +S2. ABSENT: tachycardia GI/Abdominal exam: PRESENT: soft, tenderness - More diffusely. ABSENT: ascites, distended, firm, guarding, rebound, rigid Neurological exam: PRESENT: alert, awake Psychiatric exam: ABSENT: agitated, anxious Results Laboratory Results: 01/04/20 05:13 01/04/20 05:13 01/04/20 01/04/20 05:13 05:13 WBC 15.5 H RBC 4.68 Hgb 14.5 Hct 42.3 MCV 90 MCH 31.0 MCHC 34.3 RDW 13.6 Plt Count 295 Sodium 133.6 L Potassium 3.4 L Chloride 102 Carbon Dioxide 23 Anion Gap 9 BUN 17 Creatinine 0.74 Est GFR ( Amer) > 60 Glucose 155 H Calcium 9.6 01/02/20 21:22 Clean Catch Midstream Urine Culture - Final Mixed Urogenital Fabi Impressions: Acute Abdomen Series 01/02/20 17:46 IMPRESSION: NO RADIOGRAPHIC EVIDENCE FOR ACUTE ABDOMINAL DISEASE. Abdomen/Pelvis CT 01/02/20 20:57 IMPRESSION: Findings which may represent mild colitis of the distal colon. This may be infectious or inflammatory in origin. Assessment and Plan - Diagnosis (1) Acute Crohn's disease without complication Is this a current diagnosis for this admission?: Yes Plan: Prednisone 40 mg daily. She would likely have to be on this for a few weeks with a subsequent taper and outpatient GI follow-up. Discontinue IV fluids. I have placed her on a bland/low residue soft diet and will see if she can tolerate any better than she did yesterday. Receiving IV Zofran. I will add IV Phenergan. Pain control with Toradol and morphine as needed. (2) Hypertension Qualifiers: Hypertension type: essential hypertension Qualified Code(s): I10 - Es sential (primary) hypertension Is this a current diagnosis for this admission?: Yes Plan: Patient states she takes lisinopril/amlodipine and hydrochlorothiazide. However not indicated in her med rec. Will have to confirm this. In the meantime, I will start her lisinopril and hydrochlorothiazide to monitor her blood pressure response. BP quite high but partly due to pain as well. - Time Time Spent with patient: Less than 15 minutes Anticipated Discharge Disposition: Home, Self Care Anticipated Discharge Timeframe: within 36 hours
[2020-01-04] MEDS: HYDROCHLOROTHIAZIDE 25 MG TABLET PO SCH (14:45)
[2020-01-04] MEDS ORDERED: LISINOPRIL 10 MG TABLET PO SCH (14:45)
[2020-01-04] MEDS ORDERED: AMLODIPINE BESYLATE 5 MG TABLET PO ONE (16:47)
[2020-01-04] MEDS: PAROXETINE HCL 20 MG TABLET PO SCH (17:38)
[2020-01-04] MEDS ORDERED: HYDRALAZINE HCL INJ/PF 20 MG/1 ML SDV IV PRN (20:08)
[2020-01-04] MEDS: LISINOPRIL 10 MG TABLET PO SCH (22:11)
[2020-01-05] MEDS: MORPHINE SULFATE 10 MG/ML INJ IV PRN ×4 (00:39→22:19)
[2020-01-05] MEDS: ONDANSETRON HCL INJ/PF 4 MG/2 ML SDV IV PRN ×4 (00:39→22:20)
[2020-01-05] MEDS: PROMETHAZINE HCL INJ 25 MG/1 ML VIAL IV PRN ×3 (05:05→20:17)
[2020-01-05] MEDS: HEPARIN SOD (PORCINE) 5,000 UNIT/ML 1 ML VIAL SUBCUT SCH ×3 (05:06→22:20)
[2020-01-05] MEDS: KETOROLAC TROMETHAMINE INJ/PF 30 MG/1 ML SDV IV PRN ×3 (05:06→20:16)
[2020-01-05 05:57] LABS: HEMATOCRIT 41.3 % (36.0-47.0); HEMOGLOBIN 14.1 g/dL (12.0-15.5); MEAN CORPUSCULAR HEMOGLOBIN 31.2 pg (27.0-33.4); MEAN CORPUSCULAR HGB CONC 34.2 g/dL (32.0-36.0); MEAN CORPUSCULAR VOLUME 91 fl (80-97); PLATELET COUNT 273 10^3/uL (150-450); RED BLOOD COUNT 4.53 10^6/uL (3.72-5.28); RED CELL DISTRIBUTION WIDTH 13.5 % (11.5-14.0); WHITE BLOOD COUNT 10.7 10^3/uL (4.0-10.5)
[2020-01-05 06:18] LABS: ANION GAP 8 (5-19); BLOOD UREA NITROGEN 29 mg/dL (7-20); CALCIUM 9.7 mg/dL (8.4-10.2); CARBON DIOXIDE 25 mmol/L (22-30); CHLORIDE 102 mmol/L (98-107); GLUCOSE 114 mg/dL (75-110); POTASSIUM 3.9 mmol/L (3.6-5.0)
[2020-01-05] MEDS: PREDNISONE 20 MG TABLET PO SCH (10:46)
[2020-01-05] MEDS: HYDROCHLOROTHIAZIDE 25 MG TABLET PO SCH (10:46)
[2020-01-05] MEDS: HYDROXYZINE PAMOATE 25 MG CAPSULE PO SCH ×2 (10:46→17:32)
[2020-01-05] MEDS: FERROUS SULFATE 325 MG TABLET PO SCH (10:47)
[2020-01-05] MEDS: LISINOPRIL 10 MG TABLET PO SCH ×2 (10:47→22:21)
[2020-01-05] MEDS: AMLODIPINE BESYLATE 5 MG TABLET PO SCH (10:47)
[2020-01-05] MEDS ORDERED: PREDNISONE 20 MG TABLET PO SCH (13:12)
[2020-01-05] MEDS ORDERED: MAG HYDROX/AL HYDROX/SIMETH SUSP 30 ML UDCUP PO PRN (13:13)
--- NOTE | 2020-01-05 13:15 | PDOC PROGRESS REPORT ---
Subjective Progress Note for:: 01/05/20 Subjective:: Still having epigastric discomfort. Complains of a burning sensation as well as crampy pain. No bowel movements for several days. Reason For Visit: NAUSEA AND VOMITING ABDOMINAL PAIN COLITIS POORLY Physical Exam Vital Signs: Temp Pulse Resp BP Pulse Ox 97.6 F 52 L 18 134/77 H 98 01/05/20 07:28 01/05/20 07:28 01/05/20 07:28 01/05/20 07:28 01/05/20 07:28 Intake & Output 01/04/20 01/05/20 01/06/20 06:59 06:59 06:59 Intake Total 2005 1294 Balance 2005 1294 Weight 89.9 kg 89.9 kg General appearance: PRESENT: mild distress Head exam: PRESENT: atraumatic, normocephalic Eye exam: PRESENT: conjunctiva pink. ABSENT: scleral icterus Ear exam: PRESENT: normal external ear exam. ABSENT: bleeding, drainage Mouth exam: PRESENT: moist, tongue midline Respiratory exam: PRESENT: clear to auscultation homer, symmetrical, unlabored. ABSENT: rales, rhonchi, tachypnea, wheezes Cardiovascular exam: PRESENT: RRR, +S1, +S2. ABSENT: systolic murmur GI/Abdominal exam: PRESENT: normal bowel sounds, soft, tenderness - Mostly in the epigastrium. ABSENT: distended Rectal exam: PRESENT: deferred Gentrourinary exam: ABSENT: indwelling catheter Extremities exam: ABSENT: pedal edema Neurological exam: PRESENT: alert, awake, oriented to person, oriented to place, oriented to time, oriented to situation, CN II-XII grossly intact. ABSENT: al tered Psychiatric exam: PRESENT: flat affect. ABSENT: agitated, anxious Focused psych exam: ABSENT: delusional, paranoid, restlessness Skin exam: PRESENT: dry, warm. ABSENT: rash Results Laboratory Results: 01/05/20 05:30 01/05/20 05:30 01/05/20 01/05/20 05:30 05:30 WBC 10.7 H RBC 4.53 Hgb 14.1 Hct 41.3 MCV 91 MCH 31.2 MCHC 34.2 RDW 13.5 Plt Count 273 Sodium 134.5 L Potassium 3.9 Chloride 102 Carbon Dioxide 25 Anion Gap 8 BUN 29 H Creatinine 1.43 H Est GFR ( Amer) 47 L Glucose 114 H Calcium 9.7 Impressions: Acute Abdomen Series 01/02/20 17:46 IMPRESSION: NO RADIOGRAPHIC EVIDENCE FOR ACUTE ABDOMINAL DISEASE. Abdomen/Pelvis CT 01/02/20 20:57 IMPRESSION: Findings which may represent mild colitis of the distal colon. This may be infectious or inflammatory in origin. Assessment and Plan - Diagnosis (1) Acute Crohn's disease without complication Is this a current diagnosis for this admission?: Yes Plan: continue prednisone (2) Hypertension Qualifiers: Hypertension type: essential hypertension Qualified Code(s): I10 - Essential (primary) hypertension Is this a current diagnosis for this admission?: Yes Plan: blood pressure is variable. Possibly related to pain (3) Depression Qualifiers: Depression Type: major depressive disorder Major depression recurrence: recurrent Active/Remission status: currently active Major depression episode severity: moderate Qualified Code(s): F33.1 - Major depressive disorder, recurrent, moderate Is this a current diagnosis for this admission?: Yes Plan: Cont SSRI - Time Time Spent with patient: 15-24 minutes Medications reviewed and adjusted accordingly: Yes Anticipated Discharge Disposition: Home, Self Care Anticipated Discharge Timeframe: within 48 hours
[2020-01-05] MEDS: DICYCLOMINE HCL 10 MG CAPSULE PO SCH ×3 (15:41→22:24)
[2020-01-05] MEDS: PAROXETINE HCL 20 MG TABLET PO SCH (17:32)
[2020-01-05] MEDS: RINGERS SOLUTION,LACTATED 1,000 ML IV PRN (17:34)
[2020-01-05] MEDS: FAMOTIDINE 20 MG TABLET PO SCH (22:56)
[2020-01-05] MEDS: TRAZODONE HCL 50 MG TABLET PO PRN (23:14)
[2020-01-06] MEDS: RINGERS SOLUTION,LACTATED 1,000 ML IV PRN (00:18)
[2020-01-06] MEDS: PROMETHAZINE HCL INJ 25 MG/1 ML VIAL IV PRN ×4 (00:20→19:53)
[2020-01-06] MEDS: MORPHINE SULFATE 10 MG/ML INJ IV PRN ×4 (02:38→21:31)
[2020-01-06] MEDS: ONDANSETRON HCL INJ/PF 4 MG/2 ML SDV IV PRN ×2 (02:39→09:11)
[2020-01-06] MEDS: HEPARIN SOD (PORCINE) 5,000 UNIT/ML 1 ML VIAL SUBCUT SCH ×3 (05:17→21:22)
[2020-01-06] MEDS: KETOROLAC TROMETHAMINE INJ/PF 30 MG/1 ML SDV IV PRN ×3 (05:18→19:58)
[2020-01-06 06:02] LABS: HEMATOCRIT 38.6 % (36.0-47.0); HEMOGLOBIN 13.2 g/dL (12.0-15.5); MEAN CORPUSCULAR HEMOGLOBIN 31.1 pg (27.0-33.4); MEAN CORPUSCULAR HGB CONC 34.3 g/dL (32.0-36.0); MEAN CORPUSCULAR VOLUME 91 fl (80-97); PLATELET COUNT 232 10^3/uL (150-450); RED BLOOD COUNT 4.25 10^6/uL (3.72-5.28); RED CELL DISTRIBUTION WIDTH 13.1 % (11.5-14.0); WHITE BLOOD COUNT 8.7 10^3/uL (4.0-10.5)
[2020-01-06 06:23] LABS: ANION GAP 5 (5-19); BLOOD UREA NITROGEN 31 mg/dL (7-20); CALCIUM 9.2 mg/dL (8.4-10.2); CARBON DIOXIDE 26 mmol/L (22-30); CHLORIDE 102 mmol/L (98-107); GLUCOSE 116 mg/dL (75-110); POTASSIUM 3.3 mmol/L (3.6-5.0)
[2020-01-06] MEDS: HYDROXYZINE PAMOATE 25 MG CAPSULE PO SCH ×2 (09:12→17:24)
[2020-01-06] MEDS: FAMOTIDINE 20 MG TABLET PO SCH ×2 (09:12→21:22)
[2020-01-06] MEDS: LISINOPRIL 10 MG TABLET PO SCH ×2 (09:12→21:22)
[2020-01-06] MEDS: AMLODIPINE BESYLATE 5 MG TABLET PO SCH (09:12)
[2020-01-06] MEDS: FERROUS SULFATE 325 MG TABLET PO SCH (09:13)
[2020-01-06] MEDS: HYDROCHLOROTHIAZIDE 25 MG TABLET PO SCH (09:13)
[2020-01-06] MEDS: DICYCLOMINE HCL 10 MG CAPSULE PO SCH ×4 (11:21→21:21)
--- NOTE | 2020-01-06 13:39 | PDOC PROGRESS REPORT ---
Subjective Progress Note for:: 01/06/20 Subjective:: Still complaining of pain. No diarrhea. Reason For Visit: NAUSEA AND VOMITING ABDOMINAL PAIN COLITIS POORLY Physical Exam Vital Signs: Temp Pulse Resp BP Pulse Ox 98.4 F 58 L 16 147/79 H 97 01/06/20 11:35 01/06/20 11:35 01/06/20 11:35 01/06/20 11:35 01/06/20 11:35 Intake & Output 01/05/20 01/06/20 01/07/20 06:59 06:59 06:59 Intake Total 1294 3530 580 Balance 1294 3530 580 Weight 89.9 kg 89.9 kg Results Laboratory Results: 01/06/20 05:51 01/06/20 05:51 01/06/20 01/06/20 05:51 05:51 WBC 8.7 RBC 4.25 Hgb 13.2 Hct 38.6 MCV 91 MCH 31.1 MCHC 34.3 RDW 13.1 Plt Count 232 Sodium 133.4 L Potassium 3.3 L Chloride 102 Carbon Dioxide 26 Anion Gap 5 BUN 31 H Creatinine 1.10 Est GFR ( Amer) > 60 Glucose 116 H Calcium 9.2 Impressions: Acute Abdomen Series 01/02/20 17:46 IMPRESSION: NO RADIOGRAPHIC EVIDENCE FOR ACUTE ABDOMINAL DISEASE. Abdomen/Pelvis CT 01/02/20 20:57 IMPRESSION: Findings which may represent mild colitis of the distal colon. This may be infectious or inflammatory in origin.
[2020-01-06] MEDS: SUCRALFATE 1 GM TABLET PO SCH (16:31)
[2020-01-06] MEDS: MESALAMINE 4 GM/60 ML ENEMA PR SCH (16:31)
[2020-01-06] MEDS: PAROXETINE HCL 20 MG TABLET PO SCH (17:24)
--- NOTE | 2020-01-06 20:13 | PDOC PROGRESS REPORT ---
Subjective Progress Note for:: 01/06/20 Subjective:: Still complaining of pain. She describes it more of a burning pain in the epigastrium. She tends to focus on her pain medications in the regimen that she is currently on. No further episodes of diarrhea. Reason For Visit: NAUSEA AND VOMITING ABDOMINAL PAIN COLITIS POORLY Physical Exam Vital Signs: Temp Pulse Resp BP Pulse Ox 98.7 F 59 L 18 143/84 H 96 01/06/20 15:10 01/06/20 15:10 01/06/20 15:10 01/06/20 15:10 01/06/20 15:10 Intake & Output 01/05/20 01/06/20 01/07/20 06:59 06:59 06:59 Intake Total 1294 3530 980 Balance 1294 3530 980 Weight 89.9 kg 89.9 kg General appearance: PRESENT: cooperative, mild distress, well-developed Head exam: PRESENT: atraumatic, normocephalic Eye exam: PRESENT: conjunctiva pink. ABSENT: scleral icterus Ear exam: PRESENT: normal external ear exam. ABSENT: bleeding, drainage Mouth exam: PRESENT: moist, tongue midline Respiratory exam: PRESENT: clear to auscultation homer, symmetrical, unlabored. ABSENT: prolonged expiratory phas, rales, rhonchi, tachypnea, wheezes Cardiovascular exam: PRESENT: RRR, +S1, +S2. ABSENT: bradycardia, diastolic murmur, irregular rhythm, systolic murmur, tachycardia GI/Abdominal exam: PRESENT: diminished bowel sounds, soft. ABSENT: distended, guarding, tenderness Rectal exam: PRESENT: deferred Gentrourinary exam: ABSENT: indwelling catheter Extremities exam: ABSENT: pedal edema Musculoskeletal exam: PRESENT: ambulatory, normal inspection. ABSENT: def ormity, dislocation Neurological exam: PRESENT: alert, awake, oriented to person, oriented to place, oriented to time, oriented to situation, CN II-XII grossly intact. ABSENT: altered Psychiatric exam: PRESENT: flat affect. ABSENT: agitated, anxious Focused psych exam: ABSENT: delusional, paranoid, restlessness Results Laboratory Results: 01/06/20 05:51 01/06/20 05:51 01/06/20 01/06/20 05:51 05:51 WBC 8.7 RBC 4.25 Hgb 13.2 Hct 38.6 MCV 91 MCH 31.1 MCHC 34.3 RDW 13.1 Plt Count 232 Sodium 133.4 L Potassium 3.3 L Chloride 102 Carbon Dioxide 26 Anion Gap 5 BUN 31 H Creatinine 1.10 Est GFR ( Amer) > 60 Glucose 116 H Calcium 9.2 Impressions: Acute Abdomen Series 01/02/20 17:46 IMPRESSION: NO RADIOGRAPHIC EVIDENCE FOR ACUTE ABDOMINAL DISEASE. Abdomen/Pelvis CT 01/02/20 20:57 IMPRESSION: Findings which may represent mild colitis of the distal colon. This may be infectious or inflammatory in origin. Assessment and Plan - Diagnosis (1) Acute Crohn's disease without complication Is this a current diagnosis for this admission?: Yes Plan: start mesalamine enema and stop prednisone. Start carafate for GI (2) Hypertension Qualifiers: Hypertension type: essential hypertension Qualified Code(s): I10 - Essential (primary) hypertension Is this a current diagnosis for this admission?: Yes Plan: cont current regimen (3) Depression Qualifiers: Depression Type: major depressive disorder Major depression recurrence: recurrent Active/Remission status: currently active Major depression episode severity: moderate Qualified Code(s): F33.1 - Major depressive disorder, recurrent, moderate Is this a current diagnosis for this admission?: Yes Plan: Cont SSRI - Time Time Spent with patient: 15-24 minutes Medications reviewed and adjusted accordingly: Yes Anticipated Discharge Disposition: Home, Self Care Anticipated Discharge Timeframe: within 48 hours
[2020-01-06] MEDS: POTASSI CL 40 MEQ/NS 1L 1,000 ML IV PRN (21:22)
[2020-01-06] MEDS: TRAZODONE HCL 50 MG TABLET PO PRN (21:32)
[2020-01-07] MEDS: MORPHINE SULFATE 10 MG/ML INJ IV PRN ×4 (02:24→23:57)
[2020-01-07 05:23] LABS: ABSOLUTE LYMPHOCYTES (AUTO) 2.8 10^3/uL (0.5-4.7); ABSOLUTE MONOCYTES (AUTO) 0.6 10^3/uL (0.1-1.4); ABSOLUTE NEUT (AUTO) 5.4 10^3/uL (1.7-8.2); BASOPHILS % (AUTO) 0.5 % (0-2); EOSINOPHILS % (AUTO) 0.4 % (0-6); HEMATOCRIT 38.3 % (36.0-47.0); HEMOGLOBIN 13.1 g/dL (12.0-15.5); LYMPHOCYTES % (AUTO) 31.7 % (13-45); MEAN CORPUSCULAR HEMOGLOBIN 30.9 pg (27.0-33.4); MEAN CORPUSCULAR VOLUME 91 fl (80-97); MONOCYTES % (AUTO) 6.6 % (3-13); PLATELET COUNT 257 10^3/uL (150-450); RED BLOOD COUNT 4.23 10^6/uL (3.72-5.28); RED CELL DISTRIBUTION WIDTH 13.2 % (11.5-14.0); SEGMENTED NEUTROPHILS % (AUTO) 60.8 % (42-78); TOTAL CELLS COUNTED % (AUTO) 100 %; WHITE BLOOD COUNT 8.9 10^3/uL (4.0-10.5)
[2020-01-07 05:46] LABS: ALBUMIN 3.4 g/dL (3.5-5.0); ALKALINE PHOSPHATASE 85 U/L (38-126); ASPARTATE AMINO TRANSFERASE 16 U/L (14-36); BILIRUBIN,TOTAL 0.3 mg/dL (0.2-1.3); BLOOD UREA NITROGEN 30 mg/dL (7-20); CALCIUM 8.9 mg/dL (8.4-10.2); CARBON DIOXIDE 27 mmol/L (22-30); CHLORIDE 105 mmol/L (98-107); GLUCOSE 122 mg/dL (75-110); POTASSIUM 3.9 mmol/L (3.6-5.0); TOTAL PROTEIN 5.9 g/dL (6.3-8.2)
[2020-01-07 05:53] LABS: C-REACTIVE PROTEIN < 5.0 mg/L (<10.0)
[2020-01-07 06:08] LABS: ERYTHROCYTE SEDIMENTATION RATE 14 mm/hr (0-30)
[2020-01-07 06:10] LABS: ANION GAP 4 (5-19)
[2020-01-07] MEDS: KETOROLAC TROMETHAMINE INJ/PF 30 MG/1 ML SDV IV PRN ×2 (06:19→17:55)
[2020-01-07] MEDS: PROMETHAZINE HCL INJ 25 MG/1 ML VIAL IV PRN ×3 (06:20→23:57)
[2020-01-07] MEDS: HEPARIN SOD (PORCINE) 5,000 UNIT/ML 1 ML VIAL SUBCUT SCH ×3 (06:26→22:40)
[2020-01-07] MEDS: SUCRALFATE 1 GM TABLET PO SCH ×3 (07:43→15:25)
[2020-01-07] MEDS: AMLODIPINE BESYLATE 5 MG TABLET PO SCH (09:46)
[2020-01-07] MEDS: ONDANSETRON HCL INJ/PF 4 MG/2 ML SDV IV PRN (09:46)
[2020-01-07] MEDS: FERROUS SULFATE 325 MG TABLET PO SCH (09:46)
[2020-01-07] MEDS: LISINOPRIL 10 MG TABLET PO SCH ×2 (09:46→22:40)
[2020-01-07] MEDS: HYDROXYZINE PAMOATE 25 MG CAPSULE PO SCH ×2 (09:46→17:51)
[2020-01-07] MEDS: FAMOTIDINE 20 MG TABLET PO SCH ×2 (09:48→22:41)
[2020-01-07] MEDS: DICYCLOMINE HCL 10 MG CAPSULE PO SCH ×4 (09:48→22:40)
[2020-01-07] MEDS: MESALAMINE 4 GM/60 ML ENEMA PR SCH (09:49)
[2020-01-07] MEDS: POTASSI CL 40 MEQ/NS 1L 1,000 ML IV PRN (11:43)
--- NOTE | 2020-01-07 12:48 | PDOC PROGRESS REPORT ---
Subjective Progress Note for:: 01/07/20 Subjective:: Patient still complaining of pain. Pain is crampy and central. I will repeat CT scan with oral contrast to reassess the colon Reason For Visit: NAUSEA AND VOMITING ABDOMINAL PAIN COLITIS POORLY Physical Exam Vital Signs: Temp Pulse Resp BP Pulse Ox 98.0 F 56 L 18 182/81 H 95 01/07/20 11:21 01/07/20 11:21 01/07/20 11:21 01/07/20 11:21 01/07/20 11:21 Intake & Output 01/06/20 01/07/20 01/08/20 06:59 06:59 06:59 Intake Total 3530 2380 Balance 3530 2380 Weight 89.9 kg 94.4 kg General appearance: PRESENT: other - Moderate distress Head exam: PRESENT: atraumatic, normocephalic Respiratory exam: PRESENT: clear to auscultation homer, symmetrical, unlabored. ABSENT: prolonged expiratory phas, rales, rhonchi, tachypnea, wheezes Cardiovascular exam: PRESENT: RRR, +S1, +S2 GI/Abdominal exam: PRESENT: hypoactive bowel sounds, soft, tenderness. ABSENT: distended, mass Rectal exam: PRESENT: deferred Gentrourinary exam: ABSENT: indwelling catheter Extremities exam: ABSENT: pedal edema Musculoskeletal exam: PRESENT: ambulatory, normal inspection. ABSENT: deformity Neurological exam: PRESENT: alert, awake, oriented to person, oriented to place, oriented to time, oriented to situation, CN II-XII grossly intact Psychiatric exam: PRESENT: flat affect. ABSENT: agitated, anxious Focused psych exam: ABSENT: delusional, paranoid, restlessness Results Laboratory Results: 01/07/20 04:15 01/07/20 04:15 01/07/20 01/07/20 04:15 04:15 WBC 8.9 RBC 4.23 Hgb 13.1 Hct 38.3 MCV 91 MCH 30.9 MCHC 34.0 RDW 13.2 Plt Count 257 Seg Neutrophils % 60.8 Sodium 135.6 L Potassium 3.9 Chloride 105 Carbon Dioxide 27 Anion Gap 4 L BUN 30 H Creatinine 1.04 Est GFR ( Amer) > 60 Glucose 122 H Calcium 8.9 Total Bilirubin 0.3 AST 16 Alkaline Phosphatase 85 C-Reactive Protein < 5.0 Total Protein 5.9 L Albumin 3.4 L Impressions: Acute Abdomen Series 01/02/20 17:46 IMPRESSION: NO RADIOGRAPHIC EVIDENCE FOR ACUTE ABDOMINAL DISEASE. Abdomen/Pelvis CT 01/02/20 20:57 IMPRESSION: Findings which may represent mild colitis of the distal colon. This may be infectious or inflammatory in origin. Assessment and Plan - Diagnosis (1) Acute Crohn's disease without complication Is this a current diagnosis for this admission?: Yes Plan: Interestingly the C-reactive protein was negative and repeat CT scan did not show any inflammation in the colon. Trial of ciprofloxacin and metronidazole. (2) Hypertension Qualifiers: Hypertension type: essential hypertension Qualified Code(s): I10 - Essential (primary) hypertension Is this a current diagnosis for this admission?: Yes Plan: Good blood pressure control. Continue current regimen. (3) Depression Qualifiers: Depression Type: major depressive disorder Major depression recurrence: recurrent Active/Remission status: currently active Major depression episode severity: moderate Qualified Code(s): F33.1 - Major depressive disorder, recurrent, moderate Is this a current diagnosis for this admission?: Yes Plan: Continue SSRI. Consider increasing the dose. (4) Abdominal pain Qualifiers: Abdominal location: generalized Qualified Code(s): R10.84 - Generalized abdominal pain Is this a current diagnosis for this admission?: Yes Plan: IV access lost. Will change medications to p.o. Pain seems out of proportion to clinical findings and imaging studies. High possibility of irritable bowel syndrome. - Time Time Spent with patient: 15-24 minutes Medications reviewed and adjusted accordingly: Yes Anticipated Discharge Disposition: Home, Self Care Anticipated Discharge Timeframe: within 24 hours
[2020-01-07] MEDS: PAROXETINE HCL 20 MG TABLET PO SCH (17:51)
[2020-01-07] MEDS ORDERED: METRONIDAZOLE 500 MG/NS RTU 500 MG/100 ML RTUPB IV SCH (18:00)
--- NOTE | 2020-01-07 19:26 | RADIOLOGY REPORT (SQ) ---
EXAM DESCRIPTION: CT ABD/PELVIS ORAL ONLY IMAGES COMPLETED DATE/TIME: 01/07/2020 5:09 pm REASON FOR STUDY: Worsening abdo pain. Right and left lower quadrant pain. COMPARISON: 01/02/2020 TECHNIQUE: CT scan of the abdomen and pelvis performed without intravenous or oral contrast. Images reviewed with lung, soft tissue, and bone windows. Reconstructed coronal and sagittal MPR images revi ewed. All images stored on PACS. All CT scanners at this facility use dose modulation, iterative reconstruction, and/or weight based d osing when appropriate to reduce radiation dose to as low as reasonably achievable (ALARA). [facility]: Dose Right [facility]: CareDose [facility]: Dose Right [facility]: Teradose 4D [facility]: Smart Fotofeedback RADIATION DOSE: CT Rad equipment meets quality standard of care and radiation dose reduction techniq ues were employed. CTDIvol: 11.0 mGy. DLP: 634 mGy-cm.mGy. LIMITATIONS: None. FINDINGS: LOWER CHEST: No significant findings. No nodules or infiltrates. NON-CONTRASTED LIVER, SPLEEN, ADRENALS: Evaluation limited by lack of IV contrast. No identified sign ificant masses. PANCREAS: No masses. No peripancreatic inflammatory changes. GALLBLADDER: No identified stones by CT criteria. No inflammatory changes to suggest cholecystitis. RIGHT KIDNEY AND URETER: No suspicious masses. Assessment limited by lack of IV contrast. No signif icant calcifications. No hydronephrosis or hydroureter. LEFT KIDNEY AND URETER: No suspicious masses. Assessment limited by lack of IV contrast. No signifi cant calcifications. No hydronephrosis or hydroureter. AORTA AND RETROPERITONEUM: No aneurysm. No retroperitoneal masses or adenopathy. BOWEL AND PERITONEAL CAVITY: No obvious masses or inflammatory changes. No free fluid. APPENDIX: Normal. PELVIS, BLADDER, AND ABDOMINAL WALL:The uterus and ovaries have normal size. No adnexal mass. Calci fied pelvic phleboliths. Urinary bladder has normal contour. BONES: No significant findings. OTHER: No other significant finding. IMPRESSION: No CT abnormality of the abdomen or pelvis to explain the patient's symptoms. COMMENT: Quality ID # [id number]: Final reports with documentation of one or more dose reduction techniques (e.g., Automated exposure control, adjustment of the mA and/or kV according to patient size, use of iterative reconstruction technique) TECHNICAL DOCUMENTATION: JOB ID: [id number] 2010 [employer]- All Rights Reserved Reading location - IP/workstation name: [email or web address]
[2020-01-07] MEDS ORDERED: TRAMADOL HCL 50 MG TABLET PO PRN (20:36)
[2020-01-07] MEDS ORDERED: CIPROFLOXACIN 400 MG/D5W RTU 400 MG/200 ML RTUPB IV SCH (22:00)
[2020-01-07] MEDS: METRONIDAZOLE 500 MG TABLET PO SCH (22:40)
[2020-01-07] MEDS: CIPROFLOXACIN HCL 500 MG TABLET PO SCH (22:40)
[2020-01-08] MEDS: HYDRALAZINE HCL INJ/PF 20 MG/1 ML SDV IV PRN ×2 (00:24→04:40)
[2020-01-08] MEDS: ONDANSETRON 4 MG TAB.RAPDIS PO PRN ×3 (01:34→14:40)
[2020-01-08] MEDS: MORPHINE SULFATE 10 MG/ML INJ IV PRN (04:18)
[2020-01-08] MEDS: PROMETHAZINE HCL INJ 25 MG/1 ML VIAL IV PRN (04:19)
[2020-01-08] MEDS: HEPARIN SOD (PORCINE) 5,000 UNIT/ML 1 ML VIAL SUBCUT SCH ×2 (06:04→14:41)
[2020-01-08] MEDS: METRONIDAZOLE 500 MG TABLET PO SCH ×2 (06:18→14:39)
[2020-01-08] MEDS: PROMETHAZINE HCL 25 MG TABLET PO PRN ×2 (06:18→10:07)
[2020-01-08] MEDS: SUCRALFATE 1 GM TABLET PO SCH ×2 (07:55→10:08)
[2020-01-08] MEDS: CIPROFLOXACIN HCL 500 MG TABLET PO SCH (10:07)
[2020-01-08] MEDS: LISINOPRIL 10 MG TABLET PO SCH (10:07)
[2020-01-08] MEDS: FAMOTIDINE 20 MG TABLET PO SCH (10:07)
[2020-01-08] MEDS: DICYCLOMINE HCL 10 MG CAPSULE PO SCH ×2 (10:07→14:39)
[2020-01-08] MEDS: HYDROXYZINE PAMOATE 25 MG CAPSULE PO SCH (10:07)
[2020-01-08] MEDS: FERROUS SULFATE 325 MG TABLET PO SCH (10:07)
[2020-01-08] MEDS: AMLODIPINE BESYLATE 5 MG TABLET PO SCH (10:07)
[2020-01-08] MEDS: MESALAMINE 4 GM/60 ML ENEMA PR SCH (10:08)
--- NOTE | 2020-01-08 14:22 | PDOC DISCHARGE SUMMARY ---
Impression - Admit/DC Date/PCP Admission Date/Primary Care Provider: 01/03/20 01:55 Discharge Date: 01/08/20 - Discharge Diagnosis (1) Acute Crohn's disease without complication Is this a current diagnosis for this admission?: Yes (2) Hypertension Is this a current diagnosis for this admission?: Yes (3) Depression Is this a current diagnosis for this admission?: Yes (4) Abdominal pain Is this a current diagnosis for this admission?: Yes - Additional Information Discharge Diet: Cardiac, Other (Comments) - Continue light diet and advance slowly. Suggest low acid low caffeine Discharge Activity: Activity As Tolerated Referrals: [facility] [Outside] (PATIENT WILL NEED TO CALL CLINIC TO ESTABLISH CARE IF NOT ALREADY ESTABLISHED. THE CLINIC STAFF WILL SCHEDULE A TELE HEALTH APPT. DATE AND TIME.) Prescriptions: Dicyclomine HCl [Bentyl 20 mg Tablet] 20 mg PO Q6 PRN #30 tablet PRN Reason: Abdominal Cramping Sucralfate [Carafate 1 gm Tablet] 1 gm PO AC 15 Days #45 tablet Hydrochlorothiazide [Hydrodiuril 25 mg Tablet] 25 mg PO DAILY #30 tablet Lisinopril 20 mg PO BID #60 tablet Hydrocodone/Acetaminophen [[place] 5-325 mg Tablet] 1 tab PO Q6 PRN #15 tablet PRN Reason: Amlodipine Besylate [Norvasc 5 mg Tablet] 5 mg PO DAILY #30 tablet Promethazine HCl [Phenergan 25 mg Tablet] 25 mg PO Q6HP PRN #15 tablet PRN Reason: For Nausea/Vomiting Pantoprazole Sodium [Protonix [address] Tablet] 40 mg PO QAM #30 tablet.dr Tramadol HCl [Ultram 50 mg Tablet] 50 mg PO Q4HP PRN #20 tablet PRN Reason: Home Medications: Trazodone HCl 100 mg PO HSP PRN 06/26/19 Ferrous Sulfate [Ferosul] 325 mg PO BID 01/03/20 Hydroxyzine Pamoate [Vistaril] 25 mg PO BID 01/03/20 Paroxetine HCl [Paxil 20 mg Tablet] 20 mg PO QPM 01/03/20 Amlodipine Besylate [Norvasc 5 mg Tablet] 5 mg PO DAILY tablet 01/08/20 Amlodipine Besylate [Norvasc 5 mg Tablet] 5 mg PO DAILY #30 tablet 01/08/20 Dicyclomine HCl [Bentyl 10 mg Capsule] 10 mg PO QID capsule 01/08/20 Dicyclomine HCl [Bentyl 20 mg Tablet] 20 mg PO Q6 PRN #30 tablet 01/08/20 Hydrochlorothiazide [Hydrodiuril 25 mg Tablet] 25 mg PO DAILY #30 tablet 01/08/20 Hydrocodone/Acetaminophen [[place] 5-325 mg Tablet] 1 tab PO Q6 PRN #15 tablet 01/08/20 Lisinopril 20 mg PO BID #60 tablet 01/08/20 Pantoprazole Sodium [Protonix [address] Tablet] 40 mg PO QAM #30 tablet.dr 01/08/20 Promethazine HCl [Phenergan 25 mg Tablet] 25 mg PO Q6HP PRN #15 tablet 01/08/20 Sucralfate [Carafate 1 gm Tablet] 1 gm PO AC 15 Days #45 tablet 01/08/20 Tramadol HCl [Ultram 50 mg Tablet] 50 mg PO Q4HP PRN #20 tablet 01/08/20 History of Present Illiness History of Present Illness: JOON ECKERT is a 49 year old female with a history of Crohn's disease and hypertension who presents with nausea and vomiting that started yesterday afternoon. She says she was in her usual state of health until she started to feel nauseated. She had some vague abdominal pain but it was mostly just nausea. She said she vomited "100 times." She is not had any fever. No shortness of breath. No chest pain. No diarrhea. No flank pain or dysuria. Her labs were fairly unremarkable. She had a CT that showed possible mild circumferential colitis. Hospital Course Hospital Course: The patient had an unremarkable hospital course. Because of the presumed colitis, multiple treatment modalities were attempted. The patient received steroids. When she began to complain of epigastric discomfort and what appeared to be gastritis the steroids were stopped. I did start mesalamine enemas. Repeat CT scan showed no further inflammation in the colon. At that point antibiotics and mesalamine enemas were stopped. The patient in fact is only on antibiotics for 2 days and Cristal I do not feel they were contributing to her recovery. Unfortunately the patient still has pain. With a normal CAT scan, normal C-reactive protein and normal laboratory studies it is unlikely that this is an infectious or inflammatory process. It is possible that she has severe irritable bowel. She really does need a gastroenterology work-up. At this point I also am concerned about dependence on pain medications. For her hypertension she in fact is now on 3 medications. I sent prescriptions for lisinopril, hydrochlorothiazide and amlodipine to the pharmacy. In addition Protonix, Carafate and Bentyl for GI distress. I initially sent a prescription for tramadol but she reported that she was allergic. I called the pharmacy and canceled the prescription and then sent a prescription for [place] tablets for short-term use. She needs follow-up at [facility]. Hopefully they can find a gastroenterology service that sees patients without insurance. Physical Exam Vital Signs: Temp Pulse Resp BP Pulse Ox 98.9 F 89 16 153/83 H 99 01/08/20 04:04 01/08/20 06:15 01/08/20 04:04 01/08/20 06:15 01/08/20 04:04 Intake & Output 01/07/20 01/08/20 01/09/20 06:59 06:59 06:59 Intake Total 2380 120 240 Balance 2380 120 240 Weight 94.4 kg General appearance: PRESENT: mild distress - Mild to moderate distress. The patient is laying in bed complaining of discomfort. Respiratory exam: PRESENT: clear to auscultation homer Cardiovascular exam: PRESENT: RRR, +S1, +S2 GI/Abdominal exam: PRESENT: normal bowel sounds, soft, tenderness - Left side Results Laboratory Results: WBC 8.9 10^3/uL (4.0-10.5) 01/07/20 04:15 RBC 4.23 10^6/uL (3.72-5.28) 01/07/20 04:15 Hgb 13.1 g/dL (12.0-15.5) 01/07/20 04:15 Hct 38.3 % (36.0-47.0) 01/07/20 04:15 MCV 91 fl (80-97) 01/07/20 04:15 MCH 30.9 pg (27.0-33.4) 01/07/20 04:15 MCHC 34.0 g/dL (32.0-36.0) 01/07/20 04:15 RDW 13.2 % (11.5-14.0) 01/07/20 04:15 Plt Count 257 10^3/uL (150-450) 01/07/20 04:15 Lymph % (Auto) 31.7 % (13-45) 01/07/20 04:15 Johnston % (Auto) 6.6 % (3-13) 01/07/20 04:15 Eos % (Auto) 0.4 % (0-6) 01/07/20 04:15 Baso % (Auto) 0.5 % (0-2) 01/07/20 04:15 Absolute Neuts (auto) 5.4 10^3/uL (1.7-8.2) 01/07/20 04:15 Absolute Lymphs (auto) 2.8 10^3/uL (0.5-4.7) 01/07/20 04:15 Absolute Monos (auto) 0.6 10^3/uL (0.1-1.4) 01/07/20 04:15 Absolute Eos (auto) 0.0 10^3/uL (0.0-0.6) 01/07/20 04:15 Absolute Basos (auto) 0.0 10^3/uL (0.0-0.2) 01/07/20 04:15 Seg Neutrophils % 60.8 % (42-78) 01/07/20 04:15 ESR 14 mm/hr (0-30) 01/07/20 04:15 Sodium 135.6 mmol/L (137-145) L 01/07/20 04:15 Potassium 3.9 mmol/L (3.6-5.0) 01/07/20 04:15 Chloride 105 mmol/L (98-107) 01/07/20 04:15 Carbon Dioxide 27 mmol/L (22-30) 01/07/20 04:15 Anion Gap 4 (5-19) L 01/07/20 04:15 BUN 30 mg/dL (7-20) H 01/07/20 04:15 Creatinine 1.04 mg/dL (0.52-1.25) 01/07/20 04:15 Est GFR ( Amer) > 60 (>60) 01/07/20 04:15 Est GFR (MDRD) Non-Af 56 (>60) L 01/07/20 04:15 Glucose 122 mg/dL (75-110) H 01/07/20 04:15 POC Glucose 137 mg/dL (70-110) H 01/03/20 05:54 Calcium 8.9 mg/dL (8.4-10.2) 01/07/20 04:15 Total Bilirubin 0.3 mg/dL (0.2-1.3) 01/07/20 04:15 Direct Bilirubin 0.0 mg/dL (0.0-0.4) 01/07/20 04:15 Neonat Total Bilirubin Not Reportable 01/07/20 04:15 Neonat Direct Bilirubin Not Reportable 01/07/20 04:15 Neonat Indirect Bili Not Reportable 01/07/20 04:15 AST 16 U/L (14-36) 01/07/20 04:15 ALT 12 U/L (<35) 01/07/20 04:15 Alkaline Phosphatase 85 U/L (38-126) 01/07/20 04:15 C-Reactive Protein < 5.0 mg/L (<10.0) 01/07/20 04:15 Total Protein 5.9 g/dL (6.3-8.2) L 01/07/20 04:15 Albumin 3.4 g/dL (3.5-5.0) L 01/07/20 04:15 Urine Color STRAW 01/02/20 21:22 Urine Appearance CLEAR 01/02/20 21:22 Urine pH 7.0 (5.0-9.0) 01/02/20 21:22 Ur Specific Henry 1.005 01/02/20 21:22 Urine Protein 30 mg/dL (NEGATIVE) H 01/02/20 21:22 Urine Glucose (UA) NEGATIVE mg/dL (NEGATIVE) 01/02/20 21:22 Urine Ketones NEGATIVE mg/dL (NEGATIVE) 01/02/20 21:22 Urine Blood SMALL (NEGATIVE) H 01/02/20 21:22 Urine Nitrite (Reflex) NEGATIVE (NEGATIVE) 01/02/20 21:22 Urine Bilirubin NEGATIVE (NEGATIVE) 01/02/20 21:22 Urine Urobilinogen NEGATIVE mg/dL (<2.0) 01/02/20 21:22 Leukocyte Esterase Rfl LARGE (NEGATIVE) H 01/02/20 21:22 Urine RBC (Auto) 5 /HPF 01/02/20 21:22 Urine Bacteria (Auto) TRACE /HPF 01/02/20 21:22 Urine WBC (Reflex) 21 /HPF 01/02/20 21:22 Squamous Epi Cells Auto 2 /HPF 01/02/20 21:22 Urine Mucus (Auto) RARE /LPF 01/02/20 21:22 Urine Ascorbic Acid NEGATIVE (NEGATIVE) 01/02/20 21:22 Impressions: Acute Abdomen Series 01/02/20 17:46 IMPRESSION: NO RADIOGRAPHIC EVIDENCE FOR ACUTE ABDOMINAL DISEASE. Abdomen/Pelvis CT 01/02/20 20:57 IMPRESSION: Findings which may represent mild colitis of the distal colon. This may be infectious or inflammatory in origin. Abdomen/Pelvis CT 01/07/20 00:00 IMPRESSION: No CT abnormality of the abdomen or pelvis to explain the patient's symptoms. Plan Health Concerns: Concern for dependence on pain medications. When the nurse told the patient that I had prescribed tramadol for pain she told the nurse that she was allergic. She said she would not sign the discharge paperwork unless something else was called in which raises a significant concern for pain medication dependence. In addition she needs monitoring for her hypertension and depression. Plan of Treatment: Medications as noted above Goals: Further evaluation of her GI tract and more specific diagnoses and treatment plan. Irritable bowel is a consideration. Symptoms of depression with chronic abdominal pain is also a consideration. Time Spent: Greater than 30 Minutes Stroke Is this a Stroke Patient?: No Acute Heart Failure - Is this a Heart Failure Patient?: No
[2020-01-08 14:50] VITALS: BP 182/76
[2020-01-08] MEDS ORDERED: PAROXETINE HCL 20 MG TABLET PO SCH (18:00)
== END 2020-01-08 16:25 | disposition home or self-care (01) | DRG 386 ==
LOC: ER 16:00 → EH 01-03 01:55 → 4S 01-03 02:57
PROVIDERS: ADMIT Family Medicine; ATTEND Hospitalist
DX: K50.10 Crohn's disease of large intestine without complications (principal); F33.1 Major depressive disorder, recurrent, moderate; K58.9 Irritable bowel syndrome, unspecified; I10 Essential (primary) hypertension; F17.200 Nicotine dependence, unspecified, uncomplicated; E78.5 Hyperlipidemia, unspecified; Z88.0 Allergy status to penicillin; Z91.041 Radiographic dye allergy status; Z88.8 Allergy status to other drugs, medicaments and biological substances; Z82.49 Family history of ischemic heart disease and other diseases of the circulatory system; Z83.3 Family history of diabetes mellitus; Z79.899 Other long term (current) drug therapy; Z79.890 Hormone replacement therapy; Z59.7 Insufficient social insurance and welfare support
CPT/HCPCS: 36415; 74022; 74176; 80048; 80053; 81001; 82962; 85025; 85027; 85652; 86140; 87086; 96361; 96374; 96375; 96376; 99285; J0131; J0360; J0744; J0780; J1170; J1200; J1644; J1885; J2270; J2405; J2550; J2920; J2930; J3480; J3490; J7030; J7120; J7512; S0028; S0119

== ENCOUNTER → 2020-01-26 | Outpatient (CLI) | payer OTHER ==
[2020-01-26 16:29] LABS: ABSOLUTE EOSINOPHILS # (AUTO) 0.1 10^3/uL (0.0-0.6); ABSOLUTE LYMPHOCYTES (AUTO) 2.2 10^3/uL (0.5-4.7); ABSOLUTE MONOCYTES (AUTO) 0.3 10^3/uL (0.1-1.4); ABSOLUTE NEUT (AUTO) 1.9 10^3/uL (1.7-8.2); BASOPHILS % (AUTO) 0.7 % (0-2); EOSINOPHILS % (AUTO) 2.1 % (0-6); HEMATOCRIT 37.7 % (36.0-47.0); HEMOGLOBIN 12.9 g/dL (12.0-15.5); MEAN CORPUSCULAR HEMOGLOBIN 31.1 pg (27.0-33.4); MEAN CORPUSCULAR HGB CONC 34.2 g/dL (32.0-36.0); MEAN CORPUSCULAR VOLUME 91 fl (80-97); MONOCYTES % (AUTO) 6.4 % (3-13); PLATELET COUNT 401 10^3/uL (150-450); RED BLOOD COUNT 4.15 10^6/uL (3.72-5.28); RED CELL DISTRIBUTION WIDTH 13.2 % (11.5-14.0); SEGMENTED NEUTROPHILS % (AUTO) 42.8 % (42-78); TOTAL CELLS COUNTED % (AUTO) 100 %; WHITE BLOOD COUNT 4.5 10^3/uL (4.0-10.5)
[2020-01-26 16:49] LABS: ALBUMIN 4.1 g/dL (3.5-5.0); ALKALINE PHOSPHATASE 111 U/L (38-126); ANION GAP 6 (5-19); ASPARTATE AMINO TRANSFERASE 24 U/L (14-36); BILIRUBIN,DIRECT 0.3 mg/dL (0.0-0.4); BILIRUBIN,TOTAL 0.5 mg/dL (0.2-1.3); BLOOD UREA NITROGEN 14 mg/dL (7-20); CALCIUM 9.8 mg/dL (8.4-10.2); CARBON DIOXIDE 26 mmol/L (22-30); CHLORIDE 106 mmol/L (98-107); GLUCOSE 129 mg/dL (75-110); POTASSIUM 3.3 mmol/L (3.6-5.0)
[2020-01-26 17:43] LABS: ERYTHROCYTE SEDIMENTATION RATE 49 mm/hr (0-30)
== END ==
LOC: CCC 14:49
PROVIDERS: ATTEND Family Medicine
DX: Z13.9 Encounter for screening, unspecified (principal)
CPT/HCPCS: 36415; 80053; 83036; 85025; 85652

== ENCOUNTER 2020-06-01 13:08 | Emergency (ER) | payer SELFPAY ==
--- NOTE | 2020-06-01 13:37 | ER Document Report ---
ED Medical Screen (RME) - General Chief Complaint: Foot Pain Stated Complaint: LEFT FOOT,KNEE PAIN Time Seen by Provider: 06/01/20 13:30 Primary Care Provider: [facility] BAIRES [Primary Care Provider] - Follow up as needed Mode of Arrival: Ambulatory Information source: Patient Notes: Patient is a 50-year-old female comes emergency room with a primary complaint of left foot pain with knee pain. And also complaint of having a sustained fall 2 days ago. Patient states that she started having problems with her left foot swelling and pain in the knee started about 5 days ago. She was ambulating down steps 2 days ago and the left knee gave out on her and she fell landing on her right shoulder. Patient states that she has a history of tingling and numbness in her right arm secondary to a incident occurring in a hospital where they used IV Phenergan and patient vein blew causing her to have some type of a neuropathy afterwards. She states she always has numbness and tingling in her right arm and hand although after the fall it is gotten worse and she is having difficult time holding anything in her hand. She denies any nausea vomiting or diarrhea no fevers have been reported patient is limping on examination. Patient denies having been tested for coronavirus in the past 21 days however she does state that family members were diagnosed positive few weeks back but she has not tested positive. Patient admits to having a history of Crohn's disease and hypertension. She does states she has run out of her hydrochlorothiazide. Physical examination: Patient is a well-nourished well-developed 50-year-old female no apparent distress on examination. Cardiac: Patient displays a rate of 80 bpm on monitor no murmurs auscultated. Patient's blood pressure is 190/84 Lungs: Bilateral breath sounds decreased throughout no rhonchi rales or wheeze. Lower extremities: Examination patient's area of concern is her left lower extremity. Examination of the foot shows some mild swelling compared to the right there is no palpable tenderness on the foot or ankle area. Passive range of motion ankle shows no discomfort. Patient displays 2+ pedal pulses. Further examination of the knee does show some mild swelling mild laxity noticed medially in a sitting position. There is no temperature difference from the right knee to the left knee touch. I have greeted and performed a rapid initial assessment of this patient. A comprehensive ED assessment and evaluation of the patient, analysis of test results and completion of the medical decision making process will be conducted by additional ED providers. Dictation of this chart was performed using voice recognition software; therefore, there may be some unintended grammatical errors. TRAVEL OUTSIDE OF THE [place] IN LAST 30 DAYS: No - Related Data Allergies/Adverse Reactions: Iodinated Contrast Media Allergy (Verified 01/02/20 16:59) Penicillins Allergy (Verified 01/02/20 16:59) tramadol Allergy (Verified 01/02/20 16:59) Past Medical History - Social History Frequency of alcohol use: None - Past Medical History Cardiac Medical History: Reports: Hx Hypercholesterolemia, Hx Hypertension Denies: Hx Coronary Artery Disease, Hx Heart Attack Pulmonary Medical History: Denies: Hx Asthma, Hx COPD Neurological Medical History: Denies: Hx Seizures Endocrine Medical History: Reports: Hx Diabetes Mellitus Type 2. Denies: Hx Diabetes Mellitus Type 1, Hx Hyperthyroidism, Hx Hypothyroidism Renal/ Medical History: Denies: Hx Peritoneal Dialysis GI Medical History: Reports: Hx Crohn's Disease. Denies: Hx Cirrhosis, Hx Gastroesophageal Reflux Disease, Hx Hepatitis, Hx Hiatal Hernia, Hx Ulcerative Colitis Musculoskeltal Medical History: Denies Hx Arthritis, Denies Hx Gout Skin Medical History: Denies Hx Eczema, Denies Hx Psoriasis Psychiatric Medical History: Reports: Hx Depression Infectious Medical History: Denies: Hx Hepatitis Past Surgical History: Denies: Hx Pacemaker - Immunizations Hx Diphtheria, Pertussis, Tetanus Vaccination: Yes Physical Exam - Vital signs Vitals: Temp Pulse Resp BP Pulse Ox 98.2 F 80 16 190/84 H 95 06/01/20 13:10 06/01/20 13:10 06/01/20 13:10 06/01/20 13:10 06/01/20 13:10 Course - Vital Signs Vital signs: Temp Pulse Resp BP Pulse Ox 98.2 F 80 16 190/84 H 95 06/01/20 13:10 06/01/20 13:10 06/01/20 13:10 06/01/20 13:10 06/01/20 13:10 Doctor's Discharge - Discharge Referrals: [facility] [Primary [facility] Provider] - Follow up as needed
--- NOTE | 2020-06-01 14:30 | RADIOLOGY REPORT (SQ) ---
EXAM DESCRIPTION: KNEE LEFT 2 VIEWS IMAGES COMPLETED DATE/TIME: 06/01/2020 2:22 pm REASON FOR STUDY: Pain COMPARISON: None. NUMBER OF VIEWS: Two views. TECHNIQUE: AP and lateral radiographic images acquired of the left knee. LIMITATIONS: None. FINDINGS: MINERALIZATION: Normal. BONES: No acute fracture or dislocation. No worrisome bone lesions. No significant osteophytes. JOINT: No effusion. No chondrocalcinosis. OTHER: No other significant finding. IMPRESSION: NEGATIVE STUDY OF THE LEFT KNEE. NO EXPLANATION FOR PAIN. TECHNICAL DOCUMENTATION: JOB ID: [id number] 2010 [employer]- All Rights Reserved Reading location - IP/workstation name: [email or web address]
--- NOTE | 2020-06-01 14:30 | RADIOLOGY REPORT (SQ) ---
EXAM DESCRIPTION: FOOT LEFT COMPLETE IMAGES COMPLETED DATE/TIME: 06/01/2020 2:22 pm REASON FOR STUDY: Pain swelling COMPARISON: None. NUMBER OF VIEWS: Three views. TECHNIQUE: AP, lateral and oblique radiographic images acquired of the left foot. LIMITATIONS: None. FINDINGS: MINERALIZATION: Normal. BONES: No acute fracture or dislocation. No worrisome bone lesions. JOINTS: No effusions. SOFT TISSUES: No soft tissue swelling. No foreign body. OTHER: No other significant finding. IMPRESSION: NEGATIVE STUDY OF THE LEFT FOOT. NO RADIOGRAPHIC EVIDENCE OF ACUTE INJURY. TECHNICAL DOCUMENTATION: JOB ID: [id number] [employer]- All Rights Reserved Reading location - IP/workstation name: [email or web address]
--- NOTE | 2020-06-01 14:31 | RADIOLOGY REPORT (SQ) ---
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 NUMBER OF VIEWS: Three views. TECHNIQUE: Internal rotation, external rotation, and Y view images acquired of the right shoulder. LIMITATIONS: None. FINDINGS: MINERALIZATION: Normal. BONES: No acute fracture. No worrisome bone lesions. JOINTS: No dislocation. VISUALIZED LUNGS AND RIBS: No pneumothorax. No rib fracture. SOFT TISSUES: No radiopaque foreign body. OTHER: No other significant finding. IMPRESSION: NEGATIVE STUDY OF THE RIGHT SHOULDER. NO RADIOGRAPHIC EVIDENCE OF ACUTE INJURY. TECHNICAL DOCUMENTATION: JOB ID: [id number] 2010 [employer]- All Rights Reserved Reading location - IP/workstation name: [email or web address]
[2020-06-01 14:53] LABS: ABSOLUTE EOSINOPHILS # (AUTO) 0.1 10^3/uL (0.0-0.6); ABSOLUTE MONOCYTES (AUTO) 0.5 10^3/uL (0.1-1.4); ABSOLUTE NEUT (AUTO) 2.4 10^3/uL (1.7-8.2); BASOPHILS % (AUTO) 0.9 % (0-2); EOSINOPHILS % (AUTO) 1.7 % (0-6); HEMATOCRIT 38.4 % (36.0-47.0); HEMOGLOBIN 13.6 g/dL (12.0-15.5); LYMPHOCYTES % (AUTO) 39.8 % (13-45); MEAN CORPUSCULAR HEMOGLOBIN 30.7 pg (27.0-33.4); MEAN CORPUSCULAR HGB CONC 35.3 g/dL (32.0-36.0); MEAN CORPUSCULAR VOLUME 87 fl (80-97); MONOCYTES % (AUTO) 9.5 % (3-13); PLATELET COUNT 294 10^3/uL (150-450); RED BLOOD COUNT 4.42 10^6/uL (3.72-5.28); RED CELL DISTRIBUTION WIDTH 13.6 % (11.5-14.0); SEGMENTED NEUTROPHILS % (AUTO) 48.1 % (42-78); TOTAL CELLS COUNTED % (AUTO) 100 %; WHITE BLOOD COUNT 5.1 10^3/uL (4.0-10.5)
--- NOTE | 2020-06-01 15:39 | ER Document Report ---
ED Extremity Problem, Lower - General Chief Complaint: Foot Pain Stated Complaint: LEFT FOOT,KNEE PAIN Time Seen by Provider: 06/01/20 13:30 [facility] [NO LOCAL MD] - Follow up as needed Mode of Arrival: Ambulatory Information source: Patient Notes: Patient is a 50-year-old female comes emergency room with a primary complaint of left foot pain with knee pain. And also complaint of having a sustained fall 2 days ago. Patient states that she started having problems with her left foot swelling and pain in the knee started about 5 days ago. She was ambulating down steps 2 days ago and the left knee gave out on her and she fell landing on her right shoulder. Patient states that she has a history of tingling and numbness in her right arm secondary to a incident occurring in a hospital where they used IV Phenergan and patient vein blew causing her to have some type of a neuropathy afterwards. She states she always has numbness and tingling in her right arm and hand although after the fall it is gotten worse and she is having difficult time holding anything in her hand. She denies any nausea vomiting or diarrhea no fevers have been reported patient is limping on examination. Patient denies having been tested for coronavirus in the past 21 days however she does state that family members were diagnosed positive few weeks back but she has not tested positive. Patient admits to having a history of Crohn's disease and hypertension. She does states she has run out of her hydrochlorothiazide. TRAVEL OUTSIDE OF THE [place] IN LAST 30 DAYS: No - HPI Patient complains to provider of: Injury, Swelling Location: Ankle, Knee Occurred: Last week Where: Home, Other Onset/Duration: Sudden Quality of pain: Achy, Pressure, Throbbing Severity: Moderate Pain Level: 2 Recent injury: Yes Exacerbated by: Movement, Walking Relieved by: Nothing - Related Data Allergies/Adverse Reactions: Iodinated Contrast Media Allergy (Verified 01/02/20 16:59) Penicillins Allergy (Verified 01/02/20 16:59) tramadol Allergy (Verified 01/02/20 16:59) Past Medical History - General Information source: Patient - Social History Smoking Status: Never Smoker Frequency of alcohol use: None Family History: Reviewed & Not Pertinent, CAD, DM, Hypertension - Past Medical History Cardiac Medical History: Reports: Hx Hypercholesterolemia, Hx Hypertension Denies: Hx Coronary Artery Disease, Hx Heart Attack Pulmonary Medical History: Denies: Hx Asthma, Hx COPD Neurological Medical History: Denies: Hx Seizures Endocrine Medical History: Reports: Hx Diabetes Mellitus Type 2. Denies: Hx Diabetes Mellitus Type 1, Hx Hyperthyroidism, Hx Hypothyroidism Renal/ Medical History: Denies: Hx Peritoneal Dialysis GI Medical History: Reports: Hx Crohn's Disease. Denies: Hx Cirrhosis, Hx Gastroesophageal Reflux Disease, Hx Hepatitis, Hx Hiatal Hernia, Hx Ulcerative Colitis Musculoskeletal Medical History: Denies Hx Arthritis, Denies Hx Gout Skin Medical History: Denies Hx Eczema, Denies Hx Psoriasis Psychiatric Medical History: Reports: Hx Depression Infectious Medical History: Denies: Hx Hepatitis Past Surgical History: Denies: Hx Pacemaker - Immunizations Hx Diphtheria, Pertussis, Tetanus Vaccination: Yes Review of Systems - Review of Systems Constitutional: No symptoms reported EENT: No symptoms reported Cardiovascular: No symptoms reported Respiratory: No symptoms reported Gastrointestinal: No symptoms reported Genitourinary: No symptoms reported Female Genitourinary: No symptoms reported Musculoskeletal: See HPI, Joint pain, Joint swelling, Ankle swelling Skin: No symptoms reported Hematologic/Lymphatic: No symptoms reported Neurological/Psychological: No symptoms reported Physical Exam - Vital signs Vitals: Temp Pulse Resp BP Pulse Ox 98.2 F 80 16 190/84 H 95 06/01/20 13:10 06/01/20 13:10 06/01/20 13:10 06/01/20 13:10 06/01/20 13:10 Interpretation: Hypertensive - Notes Notes: PHYSICAL EXAMINATION: GENERAL: Patient is a well-nourished well-developed 50-year-old female no apparent distress but appears somewhat uncomfortable and is limping on exam. HEAD: Atraumatic, normocephalic. EYES: Pupils equal round and reactive to light, extraocular movements intact, conjunctiva are normal. ENT: Nares patent, oropharynx clear without exudates. Moist mucous membranes. NECK: Normal range of motion, supple without lymphadenopathy LUNGS: Breath sounds clear to auscultation bilaterally and equal. No wheezes rales or rhonchi. HEART: Regular rate and rhythm without murmurs Musculoskeletal: Examination patient's area of concern is starting with her right upper shoulder examination does not show any signs of ecchymosis or abrasions. Mild tenderness to palpation on the anterior rotator cuff area. There is full range of motion but with some discomfort with motion up to parallel. Further evaluation shows patient has a slight decreased vacuum caster on the right hand as compared to the left. She has good cap refill in the nailbeds of the fingers of the hand. She has good strength at the elbow against resistance. No crepitus felt with passive range of motion of the shoulder. Further evaluation is her primary complaint is her left leg. Examination of patient's left knee shows some mild swelling circumferentially there is a good popliteal pulse some laxity medially is noted. She has good DTRs bilateral lower extremities. Patient has no tenderness in the lower calf area to palpation no Homans' sign. Examination of the ankle and foot does show some mild swelling but appears to be coming from the elbow. There is no pain elicited on palpation of the ankle or foot and has full range of motion both passively and actively. Also noted is good vascular exam with cap refill normal in bilateral nails of the toes of the left foot as well as good dorsalis pedal pulse and posterior tibial pulses. NEUROLOGICAL: Normal speech, normal gait. Normal sensory, motor exams PSYCH: Normal mood, normal affect. SKIN: Warm, Dry, normal turgor, no rashes or lesions noted. Course - Re-evaluation Re-evalutation: 06/01/20 15:51 Patient's x-rays came back negative for any acute findings. Labs were normal at this time we will going discharge patient home with a knee immobilizer I feel really this is mostly coming from her knee down says she had a laxity and discomfort and pain on the medial aspect also of the knee I will give her the name the orthopedist on-call today she can contact the office to see if she can set up an appointment. As far as her shoulder goes patient has had chronic radiculopathy from the neck area this is not something new I am going to go and place her on some gabapentin and steroids for the knee and she can follow-up with her primary doctor as well as the orthopedist. 06/01/20 15:52 I am also going to fill patient's hydrochlorothiazide 12.5 mg for a month since she is run out of those and does not have an appointment with her primary care doctor until then. Currently I am not too worried about her blood pressure since she has not taken her blood pressure medications this morning she will take them when she gets home. - Vital Signs Vital signs: Temp Pulse Resp BP Pulse Ox 98.2 F 80 16 190/84 H 95 06/01/20 13:10 06/01/20 13:10 06/01/20 13:10 06/01/20 13:10 06/01/20 13:10 - Laboratory Results Result Diagrams: 06/01/20 14:30 Critical Laboratory Results Reviewed: No Critical Results - Radiology Results Critical Radiology Results Reviewed: No Critical Results Procedures - Immobilization Left Knee Time completed: 15:52 Pre-Proc Neuro Vasc Exam: Normal Immobilizer type: Knee immobilizer Performed by: PCT Post-Proc Neuro Vasc Exam: Normal Alignment checked and good: Yes Discharge - Discharge Clinical Impression: Internal derangement of left knee Shoulder pain Qualifiers: Chronicity: chronic Laterality: right Qualified Code(s): M25.511 - Pain in right shoulder; G89.29 - Other chronic pain Hypertension Qualifiers: Hypertension type: unspecified Qualified Code(s): I10 - Essential (primary) hypertension Condition: Stable Disposition: HOME, SELF-CARE Instructions: Suspected Internal Knee Injury ([facility]), Rotator Cuff Injury ([facility]), High Blood Pressure ([facility]) Additional Instructions: As we discussed I am treating you for a suspected internal derangement of the right knee. I am placing you in a knee immobilizer that should stabilize your leg and make you feel much better and more secure on your ambulation. If you need crutches you can get them at the pharmacy but I believe that with the knee locked in place she should be able to ambulate with the knee immobilizer and your good right leg. If not any before you leave the emergency room informed the nurse that you do not feel comfortable and we will give you some crutches. Also to note your right shoulder this tingling and numbness going down the arm is chronic but with a slight difference to it since she fell there were x-rays were none diagnostic for any new findings at this time I am going to place you on some gabapentin for neuropathic pain and a steroid pack to help with the inf lammation and pain. The steroid should also help with the knee as well. I will give you the name of the orthopedic doctor database administration project manager today you can contact his office to see if he can accommodate you for this right shoulder pain and left knee pain. Should you have any concerns or problems you can return to ER for reevaluation. Prescriptions: Gabapentin 300 mg PO ASDIR #50 capsule Hydrochlorothiazide 12.5 mg PO DAILY #30 tablet Methylprednisolone [Medrol Dosepack (4 mg/Tab) 21 Tab/Dosepak] 21 tab PO ASDIR 6 Days #1 dspk Forms: Elevated Blood Pressure Referrals: [facility] [NO LOCAL MD] - Follow up as needed ASHLEY DANIEL JR, DO [ACTIVE PROVISIONAL STAFF] - Follow up as needed
[2020-06-01 16:40] VITALS: BP 169/94
== END 2020-06-01 16:40 | disposition home or self-care (01) ==
LOC: ER 13:08
DX: M23.92 Unspecified internal derangement of left knee (principal); M79.672 Pain in left foot; Y92.009 Unspecified place in unspecified non-institutional (private) residence as the place of occurrence of the external cause; G89.29 Other chronic pain; M25.511 Pain in right shoulder; I10 Essential (primary) hypertension; E78.00 Pure hypercholesterolemia, unspecified; E11.9 Type 2 diabetes mellitus without complications
CPT/HCPCS: 36415; 85025; 86140; 99284